=== PATIENT | male | born 1940 | race Caucasian/White ===

== ENCOUNTER → 2019-01-24 09:43 | Outpatient (CLI) | payer MEDICARE, SELFPAY ==
--- NOTE | 2019-01-24 | DI.US.S_ITS ---
PROCEDURE: US ABDOMEN LIMITED INDICATIONS: HERNIA TECHNIQUE: Real-time focused scanning was performed of the abdomen, with image documentation. COMPARISON: None. FINDINGS: In the area of right groin palpable abnormality, no definite groin hernia identified. No lymphadenopathy is seen. No focal fluid collection or discrete mass lesion. IMPRESSION: Negative examination as above. Dictated by: Sean Ramsay M.D. on 01/24/2019 at 13:57 Approved by: Sean Ramsay M.D. on 01/24/2019 at 13:58
== END ==
PROVIDERS: PCP Registered Nurse; Visit Provider Nurse Practitioner Family
DX: K46.9 Unspecified abdominal hernia without obstruction or gangrene (principal)
CPT/HCPCS: 76705

== ENCOUNTER → 2019-02-01 08:17 | Outpatient (CLI) | payer MEDICARE, SELFPAY ==
--- NOTE | 2019-02-01 | DI.US.S_ITS ---
PROCEDURE: US ABD AORTA ANEURYSM SCREEN INDICATIONS: AAA SCREEN TECHNIQUE: Real time scanning was performed of the aorta and iliac arteries, with image documentation. COMPARISON: [facility], ABD AORTA ANEURYSM SCREENING, 05/01/2009, 10:32. FINDINGS: Aorta: Proximal aortic diameter measures 2.1 cm. Mid-aorta measures 2.0 cm. Distal aortic diameter is 1.8 cm. Atherosclerotic plaques are again noted throughout the imaged abdominal aorta. Iliac arteries: Right common iliac artery measures 1.1 cm. Left common iliac artery measures 1.1 cm. IMPRESSION: Atherosclerosis of the abdominal aorta without sonographic evidence for abdominal aortic aneurysm. Dictated by: Rogerio Hassan M.D. on 02/01/2019 at 9:32 Approved by: Rogerio Hassan M.D. on 02/01/2019 at 9:35
== END ==
PROVIDERS: PCP Registered Nurse; Visit Provider Nurse Practitioner Family
DX: Z13.6 Encounter for screening for cardiovascular disorders (principal); I70.0 Atherosclerosis of aorta
CPT/HCPCS: 76706

== ENCOUNTER → 2019-02-15 12:11 | Outpatient (CLI) | payer MEDICARE, SELFPAY ==
--- NOTE | 2019-02-15 | DI.US.S_ITS ---
PROCEDURE: US ARTERIAL DUPLEX LE BI INDICATIONS: ABNORMAL RESULT OF OTHER CARDIOVASCULAR FUNCTION S TECHNIQUE: Color and pulse Doppler interrogation was performed of both lower extremity arterial systems, with image documentation. COMPARISON: None. FINDINGS: Right lower extremity: Common femoral artery: 133 cm/sec, with triphasic flow. Deep femoral artery: 80 cm/sec, with biphasic flow. Proximal superficial femoral artery: 76 cm/sec, with biphasic flow. Mid superficial femoral artery: 73 cm/sec, with biphasic flow. Distal superficial femoral artery: 63 cm/sec, with triphasic flow. Popliteal artery: 48 cm/sec, with biphasic flow. Posterior tibial artery: 34 cm/sec, with biphasic flow. Anterior tibial artery/dorsalis pedis: 79 cm/sec, with biphasic flow. Martines-scale imaging description: No hemodynamically significant stenosis of the right lower extremity artery. Left lower extremity: Common femoral artery: 100 cm/sec, with biphasic flow. Deep femoral artery: 626 cm/sec, with biphasic flow. Proximal superficial femoral artery: 89 cm/sec, with biphasic flow. Mid superficial femoral artery: 77 cm/sec, with biphasic flow. Distal superficial femoral artery: 54 cm/sec, with biphasic flow. Popliteal artery: 53 cm/sec, with biphasic flow. Posterior tibial artery: 58 cm/sec, with biphasic flow. Anterior tibial artery/dorsalis pedis: There is probable occlusion of the mid left anterior tibial artery with retrograde flow inferiorly. Martines-scale imaging description: Occlusion of the midportion of the left anterior tibial artery. No other hemodynamically significant stenosis. IMPRESSION: 1. 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 2. No other hemodynamically significant stenoses or occlusions of the lower extremity arteries. Dictated by: Ashley Tyler M.D. on 02/15/2019 at 17:29 Approved by: Ashley Tyler M.D. on 02/15/2019 at 17:33
== END ==
PROVIDERS: PCP Registered Nurse; Visit Provider Nurse Practitioner Family
DX: R94.39 Abnormal result of other cardiovascular function study (principal)
CPT/HCPCS: 93925

== ENCOUNTER 2019-04-25 06:35 | Day surgery (SDC) | payer MEDICARE, SELFPAY ==
[2019-04-25] VITALS (12 sets, daily range): BP systolic 116–132; BP diastolic 53–76; PULSE 58–91; RESP 9–18; TEMP 36.1–36.6; O2SAT 87–96; BMI 25.5
[2019-04-25] MEDS: LACTATED RINGERS 1,000 ML 42 ML IV ×2 (07:27→09:30)
--- NOTE | 2019-04-25 07:53 | PM.PREOP ---
Pre-operative Note Interval Note History & Physical reviewed/Exam performed by Physician: Yes Changes to H&P: No
[2019-04-25] MEDS: CEFAZOLIN 2 GM/100 ML FROZ.PIGGY IV (08:00)
--- NOTE | 2019-04-25 08:28 | SUR.OPER ---
Supine on padded OR bed, head on pillow, arms secured on padded arm boards at <90 degrees abduction, legs uncrossed, safety belt at thigh, tape over blanket over lower legs.
[2019-04-25] MEDS: BUPIVACAINE 0.5% (PF) VIAL 30 ML INJ (08:36)
--- NOTE | 2019-04-25 09:38 | SUR.PHASEI ---
Assumed care at 0930.
[2019-04-25] MEDS: fentaNYL 100 MCG/2 ML INJ IV (09:46)
--- NOTE | 2019-04-25 09:52 | SUR.PHASEI ---
Purple bruises to upper rt lip and lower left lip. No active bleeding noted.
--- NOTE | 2019-04-25 10:21 | SUR.PHASEI ---
O2 desat to upper 80s. Deep breaths encouraged. I.S. povided, verbal instructions given, patient able to reach 2200mls.
[2019-04-25] MEDS: OXYCODONE/ACETAMINOPHEN 5/325 TABLET 1 TAB PO (10:51)
--- NOTE | 2019-04-25 11:21 | PM.OP.1 ---
Operative Date/Time/Diagnoses Date of procedure: 04/25/19 Time of procedure: 09:10 Pre-op diagnosis: Right inguinal hernia reducible Post-op diagnosis: same Procedure & Clinicians Procedure: Shouldice repair right inguinal hernia Same procedure as scheduled: Yes Indications: Patient with a symptomatic hernia desired a no mesh repair Surgeon: Jose Norris Click Yes if Unassisted: Yes Anesthesia Type: General Operative Notes Findings: Indirect and direct hernias Closure Type: primary Specimen(s): none sent Prosthetic devices, grafts, tissues, transplants, or devices: None Estimated Blood Loss (mL): 10 Blood products transfused: none Procedure in detail: The patient was placed supine on the operating room table and underwent general LMA anesthesia. He was prepped and draped in the usual fashion. A transverse incision was made overlying the internal ring and carried down to the level of the external oblique. The external oblique was opened parallel with its fibers through the external ring. The cord structures were elevated. The cremaster was opened proximally and search made for an indirect sac. One was found. It was from surrounding structures and opened. It had no contents. It was suture ligated at the level the deep epigastric vessels after being transected just beyond this. The stump was allowed to retract.. The floor was examined and was found to be weakened. The floor was opened from the internal ring to the area of the pubic tubercle and the preperitoneal structures dissected off the overlying muscle and fascia. Using the cut edge of the lateral tissues and sewing to the underside of the medial edge of the transversalis a suture of 2 0 Prolene was run from the pubic tubercle superior and lateral to form a new internal ring and then run back from that point suturing the edge of the ilealo inguinal ligament and the P ileopubic tract to the cut medial edges transversalis. This was tied at the level of the pubic tubercle. I then created a another 2 layers suturing the inguinal ligament just above the last suture line to the internal oblique The repair appeared to be adequate. The external oblique was closed with a running 3 0 Vicryl. The subcu was closed with interrupted 3 0 Vicryl. 4 0 Vicryl subcuticular stitch and Steri-Strips. Dressing was applied, the patient was awakened, and the patient was taken to the recovery area in good condition. Complications: none Post-operative Condition: stable Disposition: PACU Plan for aftercare: Follow-up in the office
--- NOTE | 2019-04-25 11:54 | SUR.PHASEII ---
Late entry: assumed care of pt, pt placed on continuous 02 sat machine. 02 nasal cannula. 02 sats dropped to 88% but would rebound to as high as 97%. Dressing remained c/d/i with ice pack on and off. Steady when up. dressed when sats normalized off o2. Pt stated pain tolerable.
== END 2019-04-25 11:47 | disposition home or self-care (01) ==
PROVIDERS: PCP Family Medicine; Visit Provider Specialist
PROC: (CPT 49505; principal; 2019-04-25 07:45)
DX: K40.90 Unilateral inguinal hernia, without obstruction or gangrene, not specified as recurrent (principal); J44.9 Chronic obstructive pulmonary disease, unspecified
CPT/HCPCS: 49505; J0690; J2405; J2704; J3010

== ENCOUNTER → 2019-05-26 10:59 | Outpatient (CLI) | payer MEDICARE, SELFPAY ==
[2019-05-26 12:17] LABS: Hemoglobin A1C% w Est Avg Glu 6.1 % (4.0-6.0)
[2019-05-26 12:32] LABS: Alanine Aminotransferase 13 IU/L (<50); Albumin Globulin Ratio 1.3 (1.0-2.8); Alkaline Phosphatase 75 U/L (38-126); Aspartate Aminotransferase 24 IU/L (17-59); Bilirubin Total 0.7 mg/dL (0.2-1.3); Blood Urea Nitrogen 20 mg/dL (9-20); Calcium 9.4 mg/dL (8.4-10.2); Carbon Dioxide 25 mmol/L (22-32); Chloride 106 mmol/L (98-107); Estimated Glomerular Filt Rate > 60.0 mL/min (>60); Globulin 3.1 g/dL (1.7-4.1); Glucose 133 mg/dL (80-110); HEMOLYSIS 27 (0-50); Potassium 4.4 mmol/L (3.4-5.1); Sodium 141 mmol/L (137-145); Total Protein 7.1 g/dL (6.3-8.2)
== END ==
PROVIDERS: PCP Family Medicine; Referring Provider Family Medicine; Visit Provider Family Medicine
DX: Z13.1 Encounter for screening for diabetes mellitus (principal); Z13.220 Encounter for screening for lipoid disorders
CPT/HCPCS: 36415; 80053; 83036

== ENCOUNTER → 2019-09-09 14:29 | Outpatient (CLI) | payer MEDICARE, SELFPAY ==
[2019-09-10 09:20] LABS: COVID19 Sendout Not Detected (Not Detect)
== END ==
PROVIDERS: PCP Family Medicine; Visit Provider Physician Assistant
DX: Z01.812 Encounter for preprocedural laboratory examination (principal)
CPT/HCPCS: 87635

== ENCOUNTER → 2019-11-15 13:49 | Outpatient (CLI) | payer MEDICARE, SELFPAY ==
[2019-11-16 17:08] LABS: COVID19 Sendout Not Detected (Not Detect)
== END ==
PROVIDERS: PCP Family Medicine; Visit Provider Physician Assistant
DX: Z11.59 Encounter for screening for other viral diseases (principal)
CPT/HCPCS: 87635

== ENCOUNTER → 2019-12-30 10:43 | Outpatient (CLI) | payer MEDICARE, SELFPAY ==
--- NOTE | 2019-12-30 10:48 | DI.CT.S_ITS ---
PROCEDURE: CT CHEST WO CON INDICATIONS: Pleural plaque with presence of asbestos TECHNIQUE: Noncontrast 5 mm thick sections acquired from the pulmonary apices to the posterior costophrenic angles. 1 mm lung window, 5 mm thick coronal and sagittal and 7 mm axial MIP reformats were then acquired. For radiation dose reduction, the following was used: automated exposure control, adjustment of mA and/or kV according to patient size. COMPARISON: [facility], CT, THORAX WITHOUT CONTRAST, 07/23/2015, 11:54. FINDINGS: Image quality: Excellent. Scattered scarring/atelectasis. Unchanged prominent right pleural thickening without calcification. Numerous blebs and emphysematous changes, upper lobe predominant. There are diffuse subpleural reticular opacity with possible honeycombing appearance in the right middle lobe which appears more conspicuous since the prior study this is also noted in both lung bases, for example image 247/3. No pleural effusions or pneumothorax. Central and peripheral airways are patent and normal in caliber. Mediastinum: Heart size is normal. Coronary artery calcifications are present. No pericardial effusion. No mediastinal adenopathy by size criteria. Thoracic aorta and central pulmonary arteries are normal in size. Moderate hiatal hernia. Bones and chest wall: No vertebral body compression fracture. Spondylytic changes and facet arthropathy. No axillary or supraclavicular adenopathy by size criteria. Thyroid gland unremarkable . Non-specific hepatic calcification. A presumed hepatic cyst in the left lateral segment image 49/2 although technically indeterminate. This is unchanged IMPRESSION: Prominent right pleural thickening/plaque however noncalcified appearance. No calcified pleural plaques identified Progressive subpleural reticular and ill-defined ground-glass opacities, suspicious for usual interstitial pneumonia, given early honeycombing appearance. This appears progressed since 07/23/15. Additional chronic and incidental findings as above. Dictated by: Sean Ramsay M.D. on 12/30/2019 at 11:23 Approved by: Sean Ramsay M.D. on 12/30/2019 at 11:33
== END ==
PROVIDERS: PCP Family Medicine; Referring Provider Internal Medicine Pulmonary Disease; Visit Provider Internal Medicine Pulmonary Disease
DX: J92.0 Pleural plaque with presence of asbestos (principal); I25.10 Atherosclerotic heart disease of native coronary artery without angina pectoris; K44.9 Diaphragmatic hernia without obstruction or gangrene
CPT/HCPCS: 71250

== ENCOUNTER → 2020-01-02 13:48 | Outpatient (CLI) | payer MEDICARE, SELFPAY ==
[2020-01-03 07:45] LABS: COVID19 Sendout Not Detected (Not Detect)
== END ==
PROVIDERS: PCP Family Medicine; Visit Provider Physician Assistant
DX: Z11.59 Encounter for screening for other viral diseases (principal)
CPT/HCPCS: 87635

== ENCOUNTER → 2020-01-05 10:54 | Outpatient (CLI) | payer MEDICARE, SELFPAY ==
--- NOTE | 2020-01-11 09:06 | PM.PFT.1 ---
Pulmonary Function Test Referral & Results Date Patient Seen: 01/05/20 Requesting provider: Harman Topete Indication: COPD Results: The spirometry demonstrates an FVC of 3.37 L which is 92% of predicted. The FEV1 was measured at 2.18 L which is 84% of predicted. The FEV1/FVC ratio was 65 which is 90% of predicted. Following the administration of bronchodilator there was no appreciable change. Lung volumes show an SVC of 3.51 L which is 85% of predicted. The diffusing capacity was measured at 7.24 L which is 24% of predicted. No hemoglobin value was provided, so no correction for potential anemia could be made, if appropriate. The maximum voluntary ventilation was reduced Interpretation: This study demonstrates moderate or mild obstructive lung disease based on slight reduction FEV1 and FEV1/FVC ratio. No benefit following bronchodilator will administration was recognized. Shape a flow volume loop also suggest mild obstructive lung disease There is also very mild restrictive lung disease based on minimal reduction SVC There is a much more dramatic reduction in diffusing capacity suggesting significant disease at the capillary alveolar level.
== END ==
PROVIDERS: PCP Family Medicine; Referring Provider Family Medicine; Visit Provider Internal Medicine Pulmonary Disease
DX: J44.9 Chronic obstructive pulmonary disease, unspecified (principal); Z87.891 Personal history of nicotine dependence
CPT/HCPCS: 94060; 94726; 94729

== ENCOUNTER → 2020-02-13 13:22 | Outpatient (CLI) | payer MEDICARE, SELFPAY ==
[2020-02-13 14:51] LABS: COVID19 -Nasal RAPID Negative (Negative)
== END ==
PROVIDERS: PCP Family Medicine; Visit Provider Physician Assistant
DX: Z11.59 Encounter for screening for other viral diseases (principal)
CPT/HCPCS: 87635

== ENCOUNTER → 2020-03-19 13:16 | Outpatient (CLI) | payer MEDICARE, SELFPAY ==
[2020-03-19 18:09] LABS: COVID19 -Nasal RAPID Negative (Negative)
== END ==
PROVIDERS: PCP Family Medicine; Visit Provider Nurse Practitioner
DX: Z20.828 Contact with and (suspected) exposure to other viral communicable diseases (principal)
CPT/HCPCS: 87635; C9803

== ENCOUNTER → 2020-06-11 15:08 | Outpatient (CLI) | payer MEDICARE, SELFPAY ==
--- NOTE | 2020-06-11 15:10 | DI.RAD.S_ITS ---
PROCEDURE: XR CHEST 2V INDICATIONS: shortness of breath TECHNIQUE: 2 views of the chest were acquired. COMPARISON: [facility], CT, CT CHEST WO CON, 12/30/2019, 10:46. FINDINGS: Surgical changes and devices: None. Severe diffuse subsegmental atelectasis and/or scarring. No focal consolidation. No pleural effusions or pneumothorax. Mediastinum: Mediastinal contours are normal. Heart size is normal. Bones and chest wall: No suspicious bony abnormalities. Soft tissues appear unremarkable. IMPRESSION: Diffuse scarring and atelectasis. No definite interval change since 12/30/19 accounting for differences in imaging modality. In this setting would be difficult to entirely exclude early pneumonia or pulmonary edema. If there is persistent clinical diagnostic uncertainty, continued surveillance with short interval chest radiographs after treatment is recommended. Dictated by: Sean Ramsay M.D. on 06/11/2020 at 16:21 Approved by: Sean Ramsay M.D. on 06/11/2020 at 16:24
== END ==
PROVIDERS: PCP Family Medicine; Referring Provider Family Medicine; Visit Provider Family Medicine
DX: R06.02 Shortness of breath (principal); J44.9 Chronic obstructive pulmonary disease, unspecified
CPT/HCPCS: 71046

== ENCOUNTER 2020-06-24 16:26 | Emergency (ER) | payer MEDICARE, SELFPAY ==
[2020-06-24] VITALS (65 sets, daily range): BP systolic 104–146; BP diastolic 59–80; PULSE 75–106; RESP 10–36; TEMP 30–36.7; O2SAT 68–100
--- NOTE | 2020-06-24 16:57 | ED.SOB ---
HPI - SOB/Dyspnea <Elizabeth Molina, DO - Last Filed: 06/29/20 01:56> General Chief Complaint: Shortness of Breath/Dyspnea Stated Complaint: trouble breathing Time Seen by Provider: 06/24/20 16:54 Source: patient and family Mode of arrival: Family Vehicle Limitations: no limitations History of Present Illness HPI Narrative: This is an 79-year-old male who is brought in by his for shortness of breath. Patient has been having worsening shortness of breath the last 1-2 months but acutely worse in the last week or so and particularly today. Patient was blue when he arrived. Patient does have COPD he is normally on 4 L. He arrived via car with his . Patient is normally on Spiriva, allopurinol for gout and omeprazole. He does not take any other medications regularly. He did have a COVID vaccination in February patient has been having chills but no documented fever. He has had a chronic cough that is productive but with no new changes in coloration. He denies any chest pain or pain currently. He is currently being BiPAP with improvement of his color. Patient has not had any prior history of DVTs or blood clots. He does not have any known cardiac history. He denies any issues such as nausea or vomiting. No issues with bowel movements. No urinary issues. Patient has had some increased swelling in his lower extremities. Patient states he does not wish to be intubated if he requires a ventilator. He is okay with BiPAP. Patient's is at bedside and is somewhat reluctant about this decision from the patient. Patient and were both able to answer questions patient is alert and able to answer majority himself as well. Related Data Home Medications Medication Instructions Recorded Confirmed omeprazole 40 mg capsule,delayed 40 mg PO DAILY 03/15/19 06/11/20 release Stool Softener 50 mg PO DAILY 04/25/19 06/11/20 albuterol sulfate [ProAir HFA] 2 puff INHALATION Q4H PRN 04/25/19 06/11/20 cholecalciferol (vitamin D3) 2,000 unit PO DAILY 04/25/19 06/11/20 [Vitamin D3] Previous Rx's Medication Instructions Recorded oxycodone 5 mg PO Q4H PRN #14 tab 04/25/19 omeprazole 20 mg capsule,delayed 20 mg PO BID #180 cap 06/07/19 release allopurinol 100 mg tablet 100 mg PO DAILY #90 tab 03/13/20 doxycycline hyclate 100 mg capsule 100 mg PO BID #14 cap 06/11/20 prednisone 50 mg tablet 50 mg PO DAILY #5 tab 06/11/20 tiotropium bromide 2.5 2 puff INHALATION DAILY #4 g 06/14/20 mcg/actuation mist for inhalation Allergies Allergy/AdvReac Type Severity Reaction Status Date / Time No Known Drug Allergies Allergy Verified 06/11/20 14:48 Review of Systems <Elizabeth Molina DO - Last Filed: 06/29/20 01:56> Review of Systems ROS Unobtainable: All systems reviewed & are unremarkable except as noted in HPI and below Patient History <Elizabeth Molina DO - Last Filed: 06/29/20 01:56> Medical History (Updated 06/24/20 @ 19:49 by Elizabeth Molina DO) Durán's esophagus Constipation COPD (chronic obstructive pulmonary disease) Edema Emphysema of lung Former smoker GERD (gastroesophageal reflux disease) Gout Hard of hearing Hyperglycemia Impaired vision Raynaud phenomenon Sleep apnea with use of continuous positive airway pressure (CPAP) Family History Father Heart disease Social History marital status: household members: spouse Smoking Status: Former smoker alcohol intake: never substance use type: does not use Smoking Status: Former smoker Substance Use Type: does not use Exam <Elizabeth Molina DO - Last Filed: 06/29/20 01:56> Narrative Exam Narrative: GENERAL: Alert, elderly male. Patient was initially blew his color significantly improved on BiPAP. HEENT: Head normocephalic, atraumatic, EOMI, pupils reactive, face symmetric, moist mucous membranes NECK: Supple, full range of motion CARDIOVASCULAR: Regular rate and rhythm without murmurs, rubs or gallops. RESPIRATORY: Breath sounds equal bilaterally, no wheezes rales or rhonchi. Positive for tachypnea. Positive for accessory muscle use. ABDOMEN: Soft, nontender. Normoactive bowel sounds all 4 quadrants. No guarding or rebound, rigidity, no mass : No CVA tenderness EXTREMITIES: Normal range of motion, no clubbing, positive for bilateral pedal and ankle edema. Less appreciated in the upper legs. Patient's nail beds continue to be cyanotic. NEUROLOGICAL: Cranial nerves II through XII grossly intact. Moving all extremities SKIN: Warm, dry, no petechiae, no rashes or lesions appreciated. Initial Vital Signs Initial Vital Signs: Vital Signs Blood Pressure 146/68 H 06/24/20 16:30 <William Olsen DO - Last Filed: 06/24/20 23:58> Initial Vital Signs Initial Vital Signs: Vital Signs Blood Pressure 146/68 H 06/24/20 16:30 Scores <Elizabeth Molina DO - Last Filed: 06/29/20 01:56> GCS [place] coma scale eye opening: Spontaneous [place] coma scale verbal response: Orientated Yossi coma scale motor response: Obey commands Yossi coma scale total score: 15 Course <Elizabeth Molina DO - Last Filed: 06/29/20 01:56> Orders Ordered: Discontinued Medications Albuterol/Ipratropium (Albuterol/Ipratropium 3 Ml Ampul) 3 ml INH NOW ONE Stop: 06/24/20 16:56 Last Admin: 06/24/20 18:32 Dose: Not Given Documented by: ROSSY Albuterol/Ipratropium (Albuterol/Ipratropium 3 Ml Ampul) 3 ml INH NOW ONE Stop: 06/24/20 18:32 Last Admin: 06/24/20 18:55 Dose: 3 ml Documented by: BRITTANY Furosemide (Furosemide 40 Mg/4 Ml Vial) 40 mg IV NOW ONE Stop: 06/24/20 20:14 Last Admin: 06/24/20 20:25 Dose: 40 mg Documented by: YUNIER Heparin Sodium (Porcine) (Heparin 5,000 Unit/Ml Vial) 4,000 unit IV NOW ONE Stop: 06/24/20 19:43 Last Admin: 06/24/20 20:03 Dose: 4,000 unit Documented by: ROSSY Heparin Sodium/Dextrose (Heparin Drip) 25,000 unit in 500 mls @ 20 mls/hr IV CONT DUYEN; Protocol Last Titration: 06/24/20 23:42 Dose: 1,000 units/hr, 20 mls/hr Documented by: Admin: 06/24/20 20:05 Dose: 1,000 units/hr, 20 mls/hr Documented by: ROSSY Methylprednisolone (Methylprednisolone 125 Mg/2 Ml Vial) 125 mg IV NOW ONE Stop: 06/24/20 16:56 Last Admin: 06/24/20 18:32 Dose: Not Given Documented by: ROSSY Methylprednisolone (Methylprednisolone 125 Mg/2 Ml Vial) 125 mg IV NOW ONE Stop: 06/24/20 18:33 Last Admin: 06/24/20 18:56 Dose: 125 mg Documented by: ROSSY Reevaluation(s) Reevaluation #1: Patient is significantly improved. RT attempted weaning him off BiPAP to his usual 4 L. Patient was able to tolerate for about 10 or 15 minutes and then required BiPAP again. Time: 17:45 Consultations Time: 19:48 Vital Signs Vital signs: Vital Signs - 8 hr 06/24/20 16:30 06/24/20 16:35 06/24/20 17:11 Temperature 98.1 F Pulse Rate 106 H 100 H Respiratory Rate 36 H 29 H Blood Pressure 146/68 H 146/68 H Pulse Oximetry 68 L 99 06/24/20 18:51 06/24/20 18:55 06/24/20 19:00 Temperature Pulse Rate 84 80 79 Respiratory Rate 21 24 24 Blood Pressure 146/68 H Pulse Oximetry 100 100 99 06/24/20 19:05 06/24/20 19:10 06/24/20 19:15 Temperature Pulse Rate 79 80 79 Respiratory Rate 22 28 H 26 H Blood Pressure Pulse Oximetry 97 98 99 06/24/20 19:20 06/24/20 19:25 06/24/20 19:30 Temperature Pulse Rate 79 79 79 Respiratory Rate 16 20 20 Blood Pressure Pulse Oximetry 99 98 98 06/24/20 19:35 06/24/20 19:40 06/24/20 19:45 Temperature Pulse Rate 77 78 78 Respiratory Rate 21 21 21 Blood Pressure Pulse Oximetry 97 97 96 06/24/20 19:50 06/24/20 19:55 06/24/20 20:00 Temperature Pulse Rate 78 80 79 Respiratory Rate 19 28 H 22 Blood Pressure Pulse Oximetry 97 86 L 97 06/24/20 20:05 06/24/20 20:10 06/24/20 20:15 Temperature Pulse Rate 79 80 81 Respiratory Rate 21 25 H 24 Blood Pressure 119/59 L Pulse Oximetry 99 96 92 06/24/20 20:20 06/24/20 20:25 06/24/20 20:30 Temperature Pulse Rate 78 81 79 Respiratory Rate 24 22 28 H Blood Pressure 111/66 Pulse Oximetry 97 92 99 06/24/20 20:35 06/24/20 20:40 06/24/20 20:45 Temperature Pulse Rate 82 88 90 Respiratory Rate 24 29 H 29 H Blood Pressure Pulse Oximetry 95 96 97 06/24/20 20:50 06/24/20 20:55 06/24/20 21:00 Temperature Pulse Rate 91 H 92 H 87 Respiratory Rate 28 H 22 27 H Blood Pressure Pulse Oximetry 98 98 96 06/24/20 21:01 06/24/20 21:05 06/24/20 21:10 Temperature Pulse Rate 95 H 82 83 Respiratory Rate 31 H 26 H 27 H Blood Pressure 132/74 Pulse Oximetry 97 97 96 06/24/20 21:15 06/24/20 21:20 06/24/20 21:25 Temperature Pulse Rate 84 90 84 Respiratory Rate 33 H 35 H 28 H Blood Pressure Pulse Oximetry 84 L 93 97 06/24/20 21:30 06/24/20 21:32 06/24/20 21:35 Temperature Pulse Rate 84 93 H Respiratory Rate 31 H 33 H Blood Pressure 130/80 132/74 Pulse Oximetry 97 93 06/24/20 21:40 06/24/20 21:45 06/24/20 21:50 Temperature Pulse Rate 81 81 79 Respiratory Rate 22 21 23 Blood Pressure Pulse Oximetry 97 97 97 06/24/20 21:55 06/24/20 22:00 06/24/20 22:05 Temperature Pulse Rate 79 78 75 Respiratory Rate 19 23 18 Blood Pressure 104/62 Pulse Oximetry 97 96 95 06/24/20 22:10 06/24/20 22:15 06/24/20 22:20 Temperature Pulse Rate 75 75 75 Respiratory Rate 19 18 21 Blood Pressure Pulse Oximetry 96 96 96 06/24/20 22:25 06/24/20 22:30 06/24/20 22:35 Temperature Pulse Rate 77 75 76 Respiratory Rate 23 20 19 Blood Pressure 110/63 Pulse Oximetry 96 95 95 06/24/20 22:40 06/24/20 22:45 03/28/21 22:50 Temperature Pulse Rate 90 80 81 Respiratory Rate 33 H 26 H 22 Blood Pressure Pulse Oximetry 97 97 06/24/20 22:55 06/24/20 23:00 06/24/20 23:05 Temperature Pulse Rate 77 78 79 Respiratory Rate 21 25 H 25 H Blood Pressure 120/66 Pulse Oximetry 96 97 97 06/24/20 23:10 06/24/20 23:15 06/24/20 23:20 Temperature Pulse Rate 79 79 83 Respiratory Rate 21 26 H 26 H Blood Pressure Pulse Oximetry 97 97 97 06/24/20 23:25 06/24/20 23:30 06/24/20 23:35 Temperature Pulse Rate 79 76 76 Respiratory Rate 25 H 22 21 Blood Pressure 115/66 Pulse Oximetry 95 96 97 06/24/20 23:40 Temperature Pulse Rate 79 Respiratory Rate 28 H Blood Pressure Pulse Oximetry 97 <William Olsen DO - Last Filed: 06/24/20 23:58> Orders Ordered: Discontinued Medications Albuterol/Ipratropium (Albuterol/Ipratropium 3 Ml Ampul) 3 ml INH NOW ONE Stop: 06/24/20 16:56 Last Admin: 06/24/20 18:32 Dose: Not Given Documented by: ROSSY Albuterol/Ipratropium (Albuterol/Ipratropium 3 Ml Ampul) 3 ml INH NOW ONE Stop: 06/24/20 18:32 Last Admin: 06/24/20 18:55 Dose: 3 ml Documented by: BRITTANY Furosemide (Furosemide 40 Mg/4 Ml Vial) 40 mg IV NOW ONE Stop: 06/24/20 20:14 Last Admin: 06/24/20 20:25 Dose: 40 mg Documented by: YUNIER Heparin Sodium (Porcine) (Heparin 5,000 Unit/Ml Vial) 4,000 unit IV NOW ONE Stop: 06/24/20 19:43 Last Admin: 06/24/20 20:03 Dose: 4,000 unit Documented by: ROSSY Heparin Sodium/Dextrose (Heparin Drip) 25,000 unit in 500 mls @ 20 mls/hr IV CONT DUYEN; Protocol Last Titration: 06/24/20 23:42 Dose: 1,000 units/hr, 20 mls/hr Documented by: Admin: 06/24/20 20:05 Dose: 1,000 units/hr, 20 mls/hr Documented by: ROSSY Methylprednisolone (Methylprednisolone 125 Mg/2 Ml Vial) 125 mg IV NOW ONE Stop: 06/24/20 16:56 Last Admin: 06/24/20 18:32 Dose: Not Given Documented by: ROSSY Methylprednisolone (Methylprednisolone 125 Mg/2 Ml Vial) 125 mg IV NOW ONE Stop: 06/24/20 18:33 Last Admin: 06/24/20 18:56 Dose: 125 mg Documented by: ROSSY Consultations Consultation #1: call to hospitalist here at . Due to new need for BiPap with newly discovered PEs and significantly increased likelihood of possible decompensation the patient is most appropriate to be transferred to a facility with in-house Cardiology, and the ability to intervene if needed Consultation #2: discussed with cardio at [facility], we agree that at present time he would not demonstrate indications for intervention for his PE Consultation #3: Hospitalist happy to accept at [facility] Vital Signs Vital signs: Vital Signs - 8 hr 06/24/20 16:30 06/24/20 16:35 06/24/20 17:11 Temperature 98.1 F Pulse Rate 106 H 100 H Respiratory Rate 36 H 29 H Blood Pressure 146/68 H 146/68 H Pulse Oximetry 68 L 99 06/24/20 18:51 06/24/20 18:55 06/24/20 19:00 Temperature Pulse Rate 84 80 79 Respiratory Rate 21 24 24 Blood Pressure 146/68 H Pulse Oximetry 100 100 99 06/24/20 19:05 06/24/20 19:10 06/24/20 19:15 Temperature Pulse Rate 79 80 79 Respiratory Rate 22 28 H 26 H Blood Pressure Pulse Oximetry 97 98 99 06/24/20 19:20 06/24/20 19:25 06/24/20 19:30 Temperature Pulse Rate 79 79 79 Respiratory Rate 16 20 20 Blood Pressure Pulse Oximetry 99 98 98 06/24/20 19:35 06/24/20 19:40 06/24/20 19:45 Temperature Pulse Rate 77 78 78 Respiratory Rate 21 21 21 Blood Pressure Pulse Oximetry 97 97 96 06/24/20 19:50 06/24/20 19:55 06/24/20 20:00 Temperature Pulse Rate 78 80 79 Respiratory Rate 19 28 H 22 Blood Pressure Pulse Oximetry 97 86 L 97 06/24/20 20:05 06/24/20 20:10 06/24/20 20:15 Temperature Pulse Rate 79 80 81 Respiratory Rate 21 25 H 24 Blood Pressure 119/59 L Pulse Oximetry 99 96 92 06/24/20 20:20 06/24/20 20:25 06/24/20 20:30 Temperature Pulse Rate 78 81 79 Respiratory Rate 24 22 28 H Blood Pressure 111/66 Pulse Oximetry 97 92 99 06/24/20 20:35 06/24/20 20:40 06/24/20 20:45 Temperature Pulse Rate 82 88 90 Respiratory Rate 24 29 H 29 H Blood Pressure Pulse Oximetry 95 96 97 06/24/20 20:50 06/24/20 20:55 06/24/20 21:00 Temperature Pulse Rate 91 H 92 H 87 Respiratory Rate 28 H 22 27 H Blood Pressure Pulse Oximetry 98 98 96 06/24/20 21:01 06/24/20 21:05 06/24/20 21:10 Temperature Pulse Rate 95 H 82 83 Respiratory Rate 31 H 26 H 27 H Blood Pressure 132/74 Pulse Oximetry 97 97 96 06/24/20 21:15 06/24/20 21:20 06/24/20 21:25 Temperature Pulse Rate 84 90 84 Respiratory Rate 33 H 35 H 28 H Blood Pressure Pulse Oximetry 84 L 93 97 06/24/20 21:30 06/24/20 21:32 06/24/20 21:35 Temperature Pulse Rate 84 93 H Respiratory Rate 31 H 33 H Blood Pressure 130/80 132/74 Pulse Oximetry 97 93 06/24/20 21:40 06/24/20 21:45 06/24/20 21:50 Temperature Pulse Rate 81 81 79 Respiratory Rate 22 21 23 Blood Pressure Pulse Oximetry 97 97 97 06/24/20 21:55 06/24/20 22:00 06/24/20 22:05 Temperature Pulse Rate 79 78 75 Respiratory Rate 19 23 18 Blood Pressure 104/62 Pulse Oximetry 97 96 95 06/24/20 22:10 06/24/20 22:15 06/24/20 22:20 Temperature Pulse Rate 75 75 75 Respiratory Rate 19 18 21 Blood Pressure Pulse Oximetry 96 96 96 06/24/20 22:25 06/24/20 22:30 06/24/20 22:35 Temperature Pulse Rate 77 75 76 Respiratory Rate 23 20 19 Blood Pressure 110/63 Pulse Oximetry 96 95 95 06/24/20 22:40 06/24/20 22:45 06/24/20 22:50 Temperature Pulse Rate 90 80 81 Respiratory Rate 33 H 26 H 22 Blood Pressure Pulse Oximetry 97 97 06/24/20 22:55 06/24/20 23:00 06/24/20 23:05 Temperature Pulse Rate 77 78 79 Respiratory Rate 21 25 H 25 H Blood Pressure 120/66 Pulse Oximetry 96 97 97 06/24/20 23:10 06/24/20 23:15 06/24/20 23:20 Temperature Pulse Rate 79 79 83 Respiratory Rate 21 26 H 26 H Blood Pressure Pulse Oximetry 97 97 97 06/24/20 23:25 06/24/20 23:30 06/24/20 23:35 Temperature Pulse Rate 79 76 76 Respiratory Rate 25 H 22 21 Blood Pressure 115/66 Pulse Oximetry 95 96 97 06/24/20 23:40 Temperature Pulse Rate 79 Respiratory Rate 28 H Blood Pressure Pulse Oximetry 97 MDM - SOB/Dyspnea <Elizabeth Molina DO - Last Filed: 06/29/20 01:56> Lab Data Attestation: I reviewed the patient's lab results. Result diagrams: 06/24/20 17:15 06/24/20 17:15 Labs: Lab Results 06/24/20 06/24/20 06/24/20 Range/Units 16:38 16:52 17:15 WBC (4.5-11.0) X10^3/uL RBC (4.5-5.9) X10^6/uL Hgb (13.5-17.5) g/dL Hct (41-53) % MCV (80-100) fL MCH (26-34) PG MCHC (30-36) % RDW (11.6-14.8) % Plt Count (150-400) X10^3/uL Neut % (Auto) (50-75) % Lymph % (Auto) (25-40) % [place] % (Auto) (3-14) % Eos % (Auto) (2-4) % Baso % (Auto) (0-2) % Neut # (Auto) (7493-5793) /uL Lymph # (Auto) (4988-0093) /uL [place] # (Auto) (0-900) /uL Eos # (Auto) (0-450) /uL Baso # (Auto) (0-100) /uL PT (10.1-12.7) SECONDS INR (0.9-1.3) APTT (26.4-36.2) SECONDS D-Dimer (<230) ng/mL ABG pH 7.36 (7.35-7.45) ABG pCO2 32.5 L (35-45) mmHg ABG pO2 70 L (80-100) mmHg ABG HCO3 18 L (22-26) mmol/L ABG Total CO2 19 L (21-31) mmol/L ABG O2 Saturation 93 L (95-100) % ABG Base Excess -7.0 L (-2-2) mmol/L FiO2 100 Sodium 141 (137-145) mmol/L Potassium 4.0 (3.4-5.1) mmol/L Chloride 106 (98-107) mmol/L Carbon Dioxide 21 L (22-32) mmol/L BUN 22 H (9-20) mg/dL Creatinine 1.13 (0.66-1.25) mg/dL Estimated GFR > 60.0 (>60) mL/min BUN/Creatinine Ratio 19.5 (6-22) Glucose 147 H (80-110) mg/dL Lactate (0.7-2.1) mmol/L Calcium 9.5 (8.4-10.2) mg/dL Magnesium (1.6-2.3) mg/dL Total Bilirubin 0.8 (0.2-1.3) mg/dL AST 33 (17-59) IU/L ALT 30 (<50) IU/L Alkaline Phosphatase 103 (38-126) U/L Total Creatine Kinase (55-170) U/L CK-MB (CK-2) CK-MB (CK-2) Rel Index Troponin I (0.01-0.034) ng/mL NT-Pro-B Natriuret Pep (<450) pg/mL Total Protein 7.6 (6.3-8.2) g/dL Albumin 4.1 (3.5-5.0) g/dL Globulin 3.5 (1.7-4.1) g/dL Albumin/Globulin Ratio 1.2 (1.0-2.8) Procalcitonin (<0.5) ng/mL SARS-CoV-2 (PCR) Negative (Negative) 06/24/20 06/24/20 06/24/20 Range/Units 17:15 17:15 17:15 WBC 10.3 (4.5-11.0) X10^3/uL RBC 4.83 (4.5-5.9) X10^6/uL Hgb 15.9 (13.5-17.5) g/dL Hct 48.8 (41-53) % MCV 101.0 H (80-100) fL MCH 33.0 (26-34) PG MCHC 32.7 (30-36) % RDW 14.6 (11.6-14.8) % Plt Count 212 (150-400) X10^3/uL Neut % (Auto) 78.2 H (50-75) % Lymph % (Auto) 13.7 L (25-40) % [place] % (Auto) 5.0 (3-14) % Eos % (Auto) 2.3 (2-4) % Baso % (Auto) 0.8 (0-2) % Neut # (Auto) 8000 H (9619-5773) /uL Lymph # (Auto) 1400 (6527-6983) /uL [place] # (Auto) 500 (0-900) /uL Eos # (Auto) 200 (0-450) /uL Baso # (Auto) 100 (0-100) /uL PT 14.5 H (10.1-12.7) SECONDS INR 1.3 (0.9-1.3) APTT 34 (26.4-36.2) SECONDS D-Dimer 1347 H (<230) ng/mL ABG pH (7.35-7.45) ABG pCO2 (35-45) mmHg ABG pO2 (80-100) mmHg ABG HCO3 (22-26) mmol/L ABG Total CO2 (21-31) mmol/L ABG O2 Saturation (95-100) % ABG Base Excess (-2-2) mmol/L FiO2 Sodium (137-145) mmol/L Potassium (3.4-5.1) mmol/L Chloride (98-107) mmol/L Carbon Dioxide (22-32) mmol/L BUN (9-20) mg/dL Creatinine (0.66-1.25) mg/dL Estimated GFR (>60) mL/min BUN/Creatinine Ratio (6-22) Glucose (80-110) mg/dL Lactate 4.4 H* (0.7-2.1) mmol/L Calcium (8.4-10.2) mg/dL Magnesium (1.6-2.3) mg/dL Total Bilirubin (0.2-1.3) mg/dL AST (17-59) IU/L ALT (<50) IU/L Alkaline Phosphatase (38-126) U/L Total Creatine Kinase (55-170) U/L CK-MB (CK-2) CK-MB (CK-2) Rel Index Troponin I (0.01-0.034) ng/mL NT-Pro-B Natriuret Pep (<450) pg/mL Total Protein (6.3-8.2) g/dL Albumin (3.5-5.0) g/dL Globulin (1.7-4.1) g/dL Albumin/Globulin Ratio (1.0-2.8) Procalcitonin (<0.5) ng/mL SARS-CoV-2 (PCR) (Negative) 06/24/20 06/24/20 06/24/20 Range/Units 17:15 17:15 17:15 WBC (4.5-11.0) X10^3/uL RBC (4.5-5.9) X10^6/uL Hgb (13.5-17.5) g/dL Hct (41-53) % MCV (80-100) fL MCH (26-34) PG MCHC (30-36) % RDW (11.6-14.8) % Plt Count (150-400) X10^3/uL Neut % (Auto) (50-75) % Lymph % (Auto) (25-40) % [place] % (Auto) (3-14) % Eos % (Auto) (2-4) % Baso % (Auto) (0-2) % Neut # (Auto) (6387-1539) /uL Lymph # (Auto) (2712-8724) /uL [place] # (Auto) (0-900) /uL Eos # (Auto) (0-450) /uL Baso # (Auto) (0-100) /uL PT (10.1-12.7) SECONDS INR (0.9-1.3) APTT (26.4-36.2) SECONDS D-Dimer (<230) ng/mL ABG pH (7.35-7.45) ABG pCO2 (35-45) mmHg ABG pO2 (80-100) mmHg ABG HCO3 (22-26) mmol/L ABG Total CO2 (21-31) mmol/L ABG O2 Saturation (95-100) % ABG Base Excess (-2-2) mmol/L FiO2 Sodium Cancelled (137-145) mmol/L Potassium Cancelled (3.4-5.1) mmol/L Chloride Cancelled (98-107) mmol/L Carbon Dioxide Cancelled (22-32) mmol/L BUN Cancelled (9-20) mg/dL Creatinine Cancelled (0.66-1.25) mg/dL Estimated GFR Cancelled (>60) mL/min BUN/Creatinine Ratio Cancelled (6-22) Glucose Cancelled (80-110) mg/dL Lactate Cancelled (0.7-2.1) mmol/L Calcium Cancelled (8.4-10.2) mg/dL Magnesium 2.1 (1.6-2.3) mg/dL Total Bilirubin Cancelled (0.2-1.3) mg/dL AST Cancelled (17-59) IU/L ALT Cancelled (<50) IU/L Alkaline Phosphatase Cancelled (38-126) U/L Total Creatine Kinase 41 L (55-170) U/L CK-MB (CK-2) TNP CK-MB (CK-2) Rel Index TNP Troponin I 0.029 (0.01-0.034) ng/mL NT-Pro-B Natriuret Pep 3630 H (<450) pg/mL Total Protein Cancelled (6.3-8.2) g/dL Albumin Cancelled (3.5-5.0) g/dL Globulin Cancelled (1.7-4.1) g/dL Albumin/Globulin Ratio Cancelled (1.0-2.8) Procalcitonin 0.05 (<0.5) ng/mL SARS-CoV-2 (PCR) (Negative) 06/24/20 06/24/20 Range/Units 19:35 19:55 WBC (4.5-11.0) X10^3/uL RBC (4.5-5.9) X10^6/uL Hgb (13.5-17.5) g/dL Hct (41-53) % MCV (80-100) fL MCH (26-34) PG MCHC (30-36) % RDW (11.6-14.8) % Plt Count (150-400) X10^3/uL Neut % (Auto) (50-75) % Lymph % (Auto) (25-40) % [place] % (Auto) (3-14) % Eos % (Auto) (2-4) % Baso % (Auto) (0-2) % Neut # (Auto) (6129-1357) /uL Lymph # (Auto) (6291-7812) /uL [place] # (Auto) (0-900) /uL Eos # (Auto) (0-450) /uL Baso # (Auto) (0-100) /uL PT (10.1-12.7) SECONDS INR (0.9-1.3) APTT (26.4-36.2) SECONDS D-Dimer (<230) ng/mL ABG pH (7.35-7.45) ABG pCO2 (35-45) mmHg ABG pO2 (80-100) mmHg ABG HCO3 (22-26) mmol/L ABG Total CO2 (21-31) mmol/L ABG O2 Saturation (95-100) % ABG Base Excess (-2-2) mmol/L FiO2 Sodium (137-145) mmol/L Potassium (3.4-5.1) mmol/L Chloride (98-107) mmol/L Carbon Dioxide (22-32) mmol/L BUN (9-20) mg/dL Creatinine (0.66-1.25) mg/dL Estimated GFR (>60) mL/min BUN/Creatinine Ratio (6-22) Glucose (80-110) mg/dL Lactate 1.2 (0.7-2.1) mmol/L Calcium (8.4-10.2) mg/dL Magnesium (1.6-2.3) mg/dL Total Bilirubin (0.2-1.3) mg/dL AST (17-59) IU/L ALT (<50) IU/L Alkaline Phosphatase (38-126) U/L Total Creatine Kinase (55-170) U/L CK-MB (CK-2) CK-MB (CK-2) Rel Index Troponin I (0.01-0.034) ng/mL NT-Pro-B Natriuret Pep (<450) pg/mL Total Protein (6.3-8.2) g/dL Albumin (3.5-5.0) g/dL Globulin (1.7-4.1) g/dL Albumin/Globulin Ratio (1.0-2.8) Procalcitonin (<0.5) ng/mL SARS-CoV-2 (PCR) Negative (Negative) Imaging Data Chest x-ray: Radiologist's Impression: [address] [id number] ReportSigned Patient: Anand Rea TMR#: [id number]: [id number]:[id number]/Sex: 79 / MDate of Service: 06/24/20Loc: EDAccession Number: [id number] Procedure: XR chest 1V Ordering Provider: Elizabeth Molina D.O. PROCEDURE: XR CHEST 1V INDICATIONS: Short of breath/hypoxia, HXCOPD TECHNIQUE: One view of the chest was acquired. COMPARISON: [facility], CT, CT CHEST WO CON, 12/30/2019, 10:46. [facility], CR, XR CHEST 2V, 06/11/2020, 15:09. FINDINGS: Surgical changes and devices: None. Lungs and pleura: Generalized interstitial prominence can be seen. No pneumothorax or large pleural effusion can be seen. Mediastinum: Mediastinal contours appear normal. Heart size is moderately enlarged. Atherosclerotic calcification of the aortic arch is noted. Bones and chest wall: No suspicious bony lesions. Age-appropriate bony degenerative changes are seen. Overlying soft tissues appear unremarkable. IMPRESSION: Cardiomegaly and interstitial prominence. Please correlate with patient presentation, physical examination findings, and laboratory values for congestive heart failure. Dictated by: Dev Medley M.D. on 06/24/2020 at 16:43 Approved by: Dev Medley M.D. on 06/24/2020 at 16:45 CT scan - chest: Radiologist's Impression: Anand Rea 79 M 1940 [facility] [place] [id number] Scan ReportAddendum Patient: Anand Rea TMR#: [id number]: [id number]:[id number]/Sex: 79 / MDate of Service: 06/24/20Loc: EDAccession Number: [id number] Procedure: CT angio chest PE protocol Ordering Provider: Elizabeth Molina D.O. ADDENDUMThis report includes an Addendum and supersedes previous reports for this exam. PROCEDURE: CT ANGIO CHEST PE PROTOCOL INDICATIONS: sob, hx copd TECHNIQUE: After the administration of intravenous contrast, 2 mm thick sections acquired from the pulmonary apices to the posterior costophrenic angles. 3-dimensional maximum intensity projection (MIP) coronal and sagittal reformats were then acquired through the thorax. For radiation dose reduction, the following was used: automated exposure control, adjustment of mA and/or kV according to patient size. COMPARISON: [facility], CT, CT CHEST WO CON, 12/30/2019, 10:46. [facility], CT, THORAX WITHOUT CONTRAST, 07/23/2015, 11:54. FINDINGS: Image quality: Excellent. Pulmonary arteries: There are multiple bilateral pulmonary emboli, involving the right lobar and segmental pulmonary arteries as well as the left lower lobe segmental pulmonary arteries. Poor opacification of the upper lobe pulmonary arteries however no definite intraluminal filling defects. No definite leftward bowing of the interventricular septum. Enlargement of the central pulmonary arteries suggestive of pulmonary arterial hypertension. Severe emphysema is seen bilaterally. Scattered subsegmental atelectasis and/or scarring. No focal consolidation. There is nodular appearance measuring 1.5 x 1.5 cm involving the superior segment of the right lower lobe on image 151/5 which may be slightly progressed since the prior study although unclear if this is nodular scarring versus neoplastic. Consider further evaluation with PET-CT No pleural effusions or pneumothorax. Central and peripheral airways are patent. Mediastinum: Heart size is normal, without pericardial effusion. No mediastinal or hilar adenopathy. Thoracic aorta is normal in caliber and enhancement. Large hiatal hernia. Bones and chest wall: No suspicious bony lesions. Ribs and thoracic spine appear intact throughout. Thyroid is grossly unremarkable No axillary or supraclavicular adenopathy. Abdomen: Partially visualized presumed left renal cysts although indeterminate . Subcentimeter hepatic foci are statistically cysts or hemangiomas, although technically too small to characterize accurately and therefore nonspecific. IMPRESSION: Bilateral lower lobe pulmonary emboli as above. Severe emphysema and interstitial changes. 1.5 cm nodular focus involving the right lung superior segment warrants continued follow-up and further evaluation. Consider PET-CT to exclude malignant/metastatic possibilities (versus nodular scarring) Large hiatal hernia Additional chronic and incidental findings as above. Critical findings were personally telephoned and discussed with Dr. Molina in the emergency department at 1940 hours on 06/24/20. Dictated by: Sean Ramsay M.D. on 06/24/2020 at 19:32 Approved by: Sean Ramsay M.D. on 06/24/2020 at 19:43 ADDENDUM: There are new confluent or multiple enlarged right paratracheal lymph nodes measuring 1.7 x 3.4 cm overall image 25/4. Additional right paratracheal lymph node measuring 1.2 cm on image 41/4. Findings personally telephoned and discussed with the patient's primary care provider, Dr. Cobb, on 06/27/20. Dictated by: Sean Ramsay M.D. on 06/27/2020 at 14:48 Approved by: Sean Ramsay M.D. on 06/27/2020 at 17:32 Addendum Dictated By:Sean Ramsay MDAddendum Signed By:Addendum Cosigned By:DD/ TD/TT: 06/27/20 PROCEDURE: CT ANGIO CHEST PE PROTOCOL INDICATIONS: sob, hx copd TECHNIQUE: After the administration of intravenous contrast, 2 mm thick sections acquired from the pulmonary apices to the posterior costophrenic angles. 3-dimensional maximum intensity projection (MIP) coronal and sagittal reformats were then acquired through the thorax. For radiation dose reduction, the following was used: automated exposure control, adjustment of mA and/or kV according to patient size. COMPARISON: [facility], CT, CT CHEST WO CON, 12/30/2019, 10:46. [facility], CT, THORAX WITHOUT CONTRAST, 07/23/2015, 11:54. FINDINGS: Image quality: Excellent. Pulmonary arteries: There are multiple bilateral pulmonary emboli, involving the right lobar and segmental pulmonary arteries as well as the left lower lobe segmental pulmonary arteries. Poor opacification of the upper lobe pulmonary arteries however no definite intraluminal filling defects. No definite leftward bowing of the interventricular septum. Enlargement of the central pulmonary arteries suggestive of pulmonary arterial hypertension. Severe emphysema is seen bilaterally. Scattered subsegmental atelectasis and/or scarring. No focal consolidation. There is nodular appearance measuring 1.5 x 1.5 cm involving the superior segment of the right lower lobe on image 151/5 which may be slightly progressed since the prior study although unclear if this is nodular scarring versus neoplastic. Consider further evaluation with PET-CT No pleural effusions or pneumothorax. Central and peripheral airways are patent. Mediastinum: Heart size is normal, without pericardial effusion. No mediastinal or hilar adenopathy. Thoracic aorta is normal in caliber and enhancement. Large hiatal hernia. Bones and chest wall: No suspicious bony lesions. Ribs and thoracic spine appear intact throughout. Thyroid is grossly unremarkable No axillary or supraclavicular adenopathy. Abdomen: Partially visualized presumed left renal cysts although indeterminate . Subcentimeter hepatic foci are statistically cysts or hemangiomas, although technically too small to characterize accurately and therefore nonspecific. IMPRESSION: Bilateral lower lobe pulmonary emboli as above. Severe emphysema and interstitial changes. 1.5 cm nodular focus involving the right lung superior segment warrants continued follow-up and further evaluation. Consider PET-CT to exclude malignant/metastatic possibilities (versus nodular scarring) Large hiatal hernia Additional chronic and incidental findings as above. Critical findings were personally telephoned and discussed with Dr. Molina in the emergency department at 1940 hours on 06/24/20. Dictated by: Sean Ramsay M.D. on 06/24/2020 at 19:32 Approved by: Sean Ramsay M.D. on 06/24/2020 at 19:43 ECG Data Attestation: I personally reviewed and interpreted this ECG as follows: Interpretation: Normal sinus rhythm rate of 93, IN 128 QRS 88 QTC 4 for 7. Patient does not have priors for comparison. It patient has some inversion in 3 and AVF. No clear elevation but possible ischemic changes. MDM Narrative Medical decision making narrative: This is an 79-year-old male who comes to the emergency department with acute on chronic respiratory failure. Patient has been slowly worsening over the last several weeks. He became acutely more dyspneic in the last several days. When he arrived he was hypoxic and cyanotic. Patient was placed on BiPAP and had significant improvement. Patient does have a history of COPD on 4 L, D-dimer was obtained in is significantly elevated. Imaging was ordered and CT shows multiple pulmonary emboli, no saddle embolism. Patient does have some EKG changes and troponin is BNP is elevated at 3600. Patient's covid swab was negative. Patient was started on heparin gtt. Patient signed out to Dr. Olsen while awaiting final disposition. He does require bipap and may possibly be a candidate for intervention. Plan to discuss with hospitalist and if felt needed to transfer. <William Olsen, DO - Last Filed: 06/24/20 23:58> Lab Data Labs: Lab Results 06/24/20 06/24/20 06/24/20 Range/Units 16:38 16:52 17:15 WBC (4.5-11.0) X10^3/uL RBC (4.5-5.9) X10^6/uL Hgb (13.5-17.5) g/dL Hct (41-53) % MCV (80-100) fL MCH (26-34) PG MCHC (30-36) % RDW (11.6-14.8) % Plt Count (150-400) X10^3/uL Neut % (Auto) (50-75) % Lymph % (Auto) (25-40) % [place] % (Auto) (3-14) % Eos % (Auto) (2-4) % Baso % (Auto) (0-2) % Neut # (Auto) (6580-6863) /uL Lymph # (Auto) (9696-9983) /uL [place] # (Auto) (0-900) /uL Eos # (Auto) (0-450) /uL Baso # (Auto) (0-100) /uL PT (10.1-12.7) SECONDS INR (0.9-1.3) APTT (26.4-36.2) SECONDS D-Dimer (<230) ng/mL ABG pH 7.36 (7.35-7.45) ABG pCO2 32.5 L (35-45) mmHg ABG pO2 70 L (80-100) mmHg ABG HCO3 18 L (22-26) mmol/L ABG Total CO2 19 L (21-31) mmol/L ABG O2 Saturation 93 L (95-100) % ABG Base Excess -7.0 L (-2-2) mmol/L FiO2 100 Sodium 141 (137-145) mmol/L Potassium 4.0 (3.4-5.1) mmol/L Chloride 106 (98-107) mmol/L Carbon Dioxide 21 L (22-32) mmol/L BUN 22 H (9-20) mg/dL Creatinine 1.13 (0.66-1.25) mg/dL Estimated GFR > 60.0 (>60) mL/min BUN/Creatinine Ratio 19.5 (6-22) Glucose 147 H (80-110) mg/dL Lactate (0.7-2.1) mmol/L Calcium 9.5 (8.4-10.2) mg/dL Magnesium (1.6-2.3) mg/dL Total Bilirubin 0.8 (0.2-1.3) mg/dL AST 33 (17-59) IU/L ALT 30 (<50) IU/L Alkaline Phosphatase 103 (38-126) U/L Total Creatine Kinase (55-170) U/L CK-MB (CK-2) CK-MB (CK-2) Rel Index Troponin I (0.01-0.034) ng/mL NT-Pro-B Natriuret Pep (<450) pg/mL Total Protein 7.6 (6.3-8.2) g/dL Albumin 4.1 (3.5-5.0) g/dL Globulin 3.5 (1.7-4.1) g/dL Albumin/Globulin Ratio 1.2 (1.0-2.8) Procalcitonin (<0.5) ng/mL SARS-CoV-2 (PCR) Negative (Negative) 06/24/20 06/24/20 06/24/20 Range/Units 17:15 17:15 17:15 WBC 10.3 (4.5-11.0) X10^3/uL RBC 4.83 (4.5-5.9) X10^6/uL Hgb 15.9 (13.5-17.5) g/dL Hct 48.8 (41-53) % MCV 101.0 H (80-100) fL MCH 33.0 (26-34) PG MCHC 32.7 (30-36) % RDW 14.6 (11.6-14.8) % Plt Count 212 (150-400) X10^3/uL Neut % (Auto) 78.2 H (50-75) % Lymph % (Auto) 13.7 L (25-40) % [place] % (Auto) 5.0 (3-14) % Eos % (Auto) 2.3 (2-4) % Baso % (Auto) 0.8 (0-2) % Neut # (Auto) 8000 H (8414-0218) /uL Lymph # (Auto) 1400 (6258-9215) /uL [place] # (Auto) 500 (0-900) /uL Eos # (Auto) 200 (0-450) /uL Baso # (Auto) 100 (0-100) /uL PT 14.5 H (10.1-12.7) SECONDS INR 1.3 (0.9-1.3) APTT 34 (26.4-36.2) SECONDS D-Dimer 1347 H (<230) ng/mL ABG pH (7.35-7.45) ABG pCO2 (35-45) mmHg ABG pO2 (80-100) mmHg ABG HCO3 (22-26) mmol/L ABG Total CO2 (21-31) mmol/L ABG O2 Saturation (95-100) % ABG Base Excess (-2-2) mmol/L FiO2 Sodium (137-145) mmol/L Potassium (3.4-5.1) mmol/L Chloride (98-107) mmol/L Carbon Dioxide (22-32) mmol/L BUN (9-20) mg/dL Creatinine (0.66-1.25) mg/dL Estimated GFR (>60) mL/min BUN/Creatinine Ratio (6-22) Glucose (80-110) mg/dL Lactate 4.4 H* (0.7-2.1) mmol/L Calcium (8.4-10.2) mg/dL Magnesium (1.6-2.3) mg/dL Total Bilirubin (0.2-1.3) mg/dL AST (17-59) IU/L ALT (<50) IU/L Alkaline Phosphatase (38-126) U/L Total Creatine Kinase (55-170) U/L CK-MB (CK-2) CK-MB (CK-2) Rel Index Troponin I (0.01-0.034) ng/mL NT-Pro-B Natriuret Pep (<450) pg/mL Total Protein (6.3-8.2) g/dL Albumin (3.5-5.0) g/dL Globulin (1.7-4.1) g/dL Albumin/Globulin Ratio (1.0-2.8) Procalcitonin (<0.5) ng/mL SARS-CoV-2 (PCR) (Negative) 06/24/20 06/24/20 06/24/20 Range/Units 17:15 17:15 17:15 WBC (4.5-11.0) X10^3/uL RBC (4.5-5.9) X10^6/uL Hgb (13.5-17.5) g/dL Hct (41-53) % MCV (80-100) fL MCH (26-34) PG MCHC (30-36) % RDW (11.6-14.8) % Plt Count (150-400) X10^3/uL Neut % (Auto) (50-75) % Lymph % (Auto) (25-40) % [place] % (Auto) (3-14) % Eos % (Auto) (2-4) % Baso % (Auto) (0-2) % Neut # (Auto) (8865-8580) /uL Lymph # (Auto) (2027-8247) /uL [place] # (Auto) (0-900) /uL Eos # (Auto) (0-450) /uL Baso # (Auto) (0-100) /uL PT (10.1-12.7) SECONDS INR (0.9-1.3) APTT (26.4-36.2) SECONDS D-Dimer (<230) ng/mL ABG pH (7.35-7.45) ABG pCO2 (35-45) mmHg ABG pO2 (80-100) mmHg ABG HCO3 (22-26) mmol/L ABG Total CO2 (21-31) mmol/L ABG O2 Saturation (95-100) % ABG Base Excess (-2-2) mmol/L FiO2 Sodium Cancelled (137-145) mmol/L Potassium Cancelled (3.4-5.1) mmol/L Chloride Cancelled (98-107) mmol/L Carbon Dioxide Cancelled (22-32) mmol/L BUN Cancelled (9-20) mg/dL Creatinine Cancelled (0.66-1.25) mg/dL Estimated GFR Cancelled (>60) mL/min BUN/Creatinine Ratio Cancelled (6-22) Glucose Cancelled (80-110) mg/dL Lactate Cancelled (0.7-2.1) mmol/L Calcium Cancelled (8.4-10.2) mg/dL Magnesium 2.1 (1.6-2.3) mg/dL Total Bilirubin Cancelled (0.2-1.3) mg/dL AST Cancelled (17-59) IU/L ALT Cancelled (<50) IU/L Alkaline Phosphatase Cancelled (38-126) U/L Total Creatine Kinase 41 L (55-170) U/L CK-MB (CK-2) TNP CK-MB (CK-2) Rel Index TNP Troponin I 0.029 (0.01-0.034) ng/mL NT-Pro-B Natriuret Pep 3630 H (<450) pg/mL Total Protein Cancelled (6.3-8.2) g/dL Albumin Cancelled (3.5-5.0) g/dL Globulin Cancelled (1.7-4.1) g/dL Albumin/Globulin Ratio Cancelled (1.0-2.8) Procalcitonin 0.05 (<0.5) ng/mL SARS-CoV-2 (PCR) (Negative) 06/24/20 06/24/20 Range/Units 19:35 19:55 WBC (4.5-11.0) X10^3/uL RBC (4.5-5.9) X10^6/uL Hgb (13.5-17.5) g/dL Hct (41-53) % MCV (80-100) fL MCH (26-34) PG MCHC (30-36) % RDW (11.6-14.8) % Plt Count (150-400) X10^3/uL Neut % (Auto) (50-75) % Lymph % (Auto) (25-40) % [place] % (Auto) (3-14) % Eos % (Auto) (2-4) % Baso % (Auto) (0-2) % Neut # (Auto) (7094-4010) /uL Lymph # (Auto) (9439-3528) /uL [place] # (Auto) (0-900) /uL Eos # (Auto) (0-450) /uL Baso # (Auto) (0-100) /uL PT (10.1-12.7) SECONDS INR (0.9-1.3) APTT (26.4-36.2) SECONDS D-Dimer (<230) ng/mL ABG pH (7.35-7.45) ABG pCO2 (35-45) mmHg ABG pO2 (80-100) mmHg ABG HCO3 (22-26) mmol/L ABG Total CO2 (21-31) mmol/L ABG O2 Saturation (95-100) % ABG Base Excess (-2-2) mmol/L FiO2 Sodium (137-145) mmol/L Potassium (3.4-5.1) mmol/L Chloride (98-107) mmol/L Carbon Dioxide (22-32) mmol/L BUN (9-20) mg/dL Creatinine (0.66-1.25) mg/dL Estimated GFR (>60) mL/min BUN/Creatinine Ratio (6-22) Glucose (80-110) mg/dL Lactate 1.2 (0.7-2.1) mmol/L Calcium (8.4-10.2) mg/dL Magnesium (1.6-2.3) mg/dL Total Bilirubin (0.2-1.3) mg/dL AST (17-59) IU/L ALT (<50) IU/L Alkaline Phosphatase (38-126) U/L Total Creatine Kinase (55-170) U/L CK-MB (CK-2) CK-MB (CK-2) Rel Index Troponin I (0.01-0.034) ng/mL NT-Pro-B Natriuret Pep (<450) pg/mL Total Protein (6.3-8.2) g/dL Albumin (3.5-5.0) g/dL Globulin (1.7-4.1) g/dL Albumin/Globulin Ratio (1.0-2.8) Procalcitonin (<0.5) ng/mL SARS-CoV-2 (PCR) Negative (Negative) Imaging Data CT scan - chest: Radiologist's Impression: Anand Rea T 79 M [address] [id number] Scan ReportSigned Patient: Anand Rea TMR#: [id number]: 9Acct:[id number]/Sex: 79 / MDate of Service: 06/24/20Loc: EDAccession Number: [id number] Procedure: CT angio chest PE protocol Ordering Provider: Elizabeth Molina D.O. PROCEDURE: CT ANGIO CHEST PE PROTOCOL INDICATIONS: sob, hx copd TECHNIQUE: After the administration of intravenous contrast, 2 mm thick sections acquired from the pulmonary apices to the posterior costophrenic angles. 3-dimensional maximum intensity projection (MIP) coronal and sagittal reformats were then acquired through the thorax. For radiation dose reduction, the following was used: automated exposure control, adjustment of mA and/or kV according to patient size. COMPARISON: [facility], CT, CT CHEST WO CON, 12/30/2019, 10:46. [facility], CT, THORAX WITHOUT CONTRAST, 07/23/2015, 11:54. FINDINGS: Image quality: Excellent. Pulmonary arteries: There are multiple bilateral pulmonary emboli, involving the right lobar and segmental pulmonary arteries as well as the left lower lobe segmental pulmonary arteries. Poor opacification of the upper lobe pulmonary arteries however no definite intraluminal filling defects. No definite leftward bowing of the interventricular septum. Enlargement of the central pulmonary arteries suggestive of pulmonary arterial hypertension. Severe emphysema is seen bilaterally. Scattered subsegmental atelectasis and/or scarring. No focal consolidation. There is nodular appearance measuring 1.5 x 1.5 cm involving the superior segment of the right lower lobe on image 151/5 which may be slightly progressed since the prior study although unclear if this is nodular scarring versus neoplastic. Consider further evaluation with PET-CT No pleural effusions or pneumothorax. Central and peripheral airways are patent. Mediastinum: Heart size is normal, without pericardial effusion. No mediastinal or hilar adenopathy. Thoracic aorta is normal in caliber and enhancement. Large hiatal hernia. Bones and chest wall: No suspicious bony lesions. Ribs and thoracic spine appear intact throughout. Thyroid is grossly unremarkable No axillary or supraclavicular adenopathy. Abdomen: Partially visualized presumed left renal cysts although indeterminate . Subcentimeter hepatic foci are statistically cysts or hemangiomas, although technically too small to characterize accurately and therefore nonspecific. IMPRESSION: Bilateral lower lobe pulmonary emboli as above. Severe emphysema and interstitial changes. 1.5 cm nodular focus involving the right lung superior segment warrants continued follow-up and further evaluation. Consider PET-CT to exclude malignant/metastatic possibilities (versus nodular scarring) Large hiatal hernia Additional chronic and incidental findings as above. Critical findings were personally telephoned and discussed with Dr. Molina in the emergency department at 1940 hours on 06/24/20. Dictated by: Sean Ramsay M.D. on 06/24/2020 at 19:32 Approved by: Sean Ramsay M.D. on 06/24/2020 at 19:43 <William Olsen, - Last Filed: 06/24/20 23:58> Critical Care Time Critical Care Time: Yes Total Critical Care Time: 30 Attestation: The high probability of a clinically significant, sudden or life threatening deterioration of the [CV] system(s) required my full and direct attention, intervention and personal management. The aggregate critical care time was [30] minutes. This time is in addition to time spent performing reported procedures but includes the following: [x] Data Review and interpretation [x] Patient assessment and monitoring of vital signs [x] Documentation [x] Medication orders and management Discharge Plan Departure Patient Disposition: [facility] Clinical Impression: Acute and chronic respiratory failure with hypoxia, Pulmonary embolism Prescriptions: No Action allopurinol 100 mg tablet 100 mg PO DAILY Qty: 90 RF: 1 Spiriva Respimat 2.5 mcg/actuation mist 2 puff INHALATION DAILY Qty: 4 RF: 2 omeprazole 40 mg capsule,delayed release(DR/EC) 40 mg PO DAILY RF: 0 omeprazole 20 mg capsule,delayed release(DR/EC) 20 mg PO BID Qty: 180 RF: 3 doxycycline hyclate 100 mg capsule 100 mg PO BID Qty: 14 RF: 0 prednisone 50 mg tablet 50 mg PO DAILY Qty: 5 RF: 0 albuterol sulfate [ProAir HFA] 90 mcg/actuation Hfa Aerosol Inhaler 2 puff INHALATION Q4H PRN (Reason: Wheezing) RF: 0 cholecalciferol (vitamin D3) [Vitamin D3] 2,000 unit Tablet 2,000 unit PO DAILY RF: 0 Stool Softener 50 mg Capsule 50 mg PO DAILY RF: 0 oxycodone 5 mg tablet 5 mg PO Q4H PRN (Reason: painful procedure) Qty: 14 RF: 0 Referrals: Ivan Cobb DO [Primary Care Provider] -
[2020-06-24 17:00] LABS: Fractionated Inspired Oxygen 100; HCO3 ABG 18 mmol/L (22-26); Oxygen Saturation ABG 93 % (95-100); PCO2 ABG 32.5 mmHg (35-45); PO2 ABG 70 mmHg (80-100); TCO2 ABG 19 mmol/L (21-31); pH ABG 7.36 (7.35-7.45)
[2020-06-24 17:03] LABS: COVID19 -Nasal RAPID Negative (Negative)
[2020-06-24 17:40] LABS: Add Manual Diff / Slide Review NO; Basophils Absolute Auto 100 /uL (0-100); Basophils Percent Auto 0.8 % (0-2); Eosinophils Absolute Auto 200 /uL (0-450); Eosinophils Percent Auto 2.3 % (2-4); Hematocrit 48.8 % (41-53); Hemoglobin 15.9 g/dL (13.5-17.5); Lymphocytes Absolute Auto 1400 /uL (1100-4500); Lymphocytes Percent Auto 13.7 % (25-40); Mean Corpuscular HGB Conc 32.7 % (30-36); Monocytes Absolute Auto 500 /uL (0-900); Neutrophils Absolute Auto 8000 /uL (1500-7000); Neutrophils Percent Auto 78.2 % (50-75); Platelet Count 212 X10^3/uL (150-400); Red Blood Cell Count 4.83 X10^6/uL (4.5-5.9); Red Cell Distribution Width 14.6 % (11.6-14.8); White Blood Cell Count 10.3 X10^3/uL (4.5-11.0)
[2020-06-24 17:46] LABS: INR 1.3 (0.9-1.3); Prothrombin Time 14.5 SECONDS (10.1-12.7)
[2020-06-24 17:49] LABS: PTT Partial Thromboplastin Tim 34 SECONDS (26.4-36.2)
[2020-06-24 17:51] LABS: Alanine Aminotransferase 30 IU/L (<50); Albumin 4.1 g/dL (3.5-5.0); Albumin Globulin Ratio 1.2 (1.0-2.8); Alkaline Phosphatase 103 U/L (38-126); Aspartate Aminotransferase 33 IU/L (17-59); BUN Creatinine Ratio 19.5 (6-22); Bilirubin Total 0.8 mg/dL (0.2-1.3); Blood Urea Nitrogen 22 mg/dL (9-20); Calcium 9.5 mg/dL (8.4-10.2); Carbon Dioxide 21 mmol/L (22-32); Chloride 106 mmol/L (98-107); Creatine Kinase 41 U/L (55-170); Estimated Glomerular Filt Rate > 60.0 mL/min (>60); Globulin 3.5 g/dL (1.7-4.1); Glucose 147 mg/dL (80-110); HEMOLYSIS < 15 (0-50); Magnesium 2.1 mg/dL (1.6-2.3); Sodium 141 mmol/L (137-145); Total Protein 7.6 g/dL (6.3-8.2)
[2020-06-24 17:53] LABS: Lactate (Lactic Acid) 4.4 mmol/L (0.7-2.1)
[2020-06-24 17:56] LABS: D Dimer 1347 ng/mL (<230)
[2020-06-24 18:03] LABS: NT-proBNP (BNP-Adult 18+) 3630 pg/mL (<450); Troponin I 0.029 ng/mL (0.01-0.034)
--- NOTE | 2020-06-24 18:06 | DI.CT.S_ITS ---
PROCEDURE: CT ANGIO CHEST PE PROTOCOL INDICATIONS: sob, hx copd TECHNIQUE: After the administration of intravenous contrast, 2 mm thick sections acquired from the pulmonary apices to the posterior costophrenic angles. 3-dimensional maximum intensity projection (MIP) coronal and sagittal reformats were then acquired through the thorax. For radiation dose reduction, the following was used: automated exposure control, adjustment of mA and/or kV according to patient size. COMPARISON: [facility], CT, CT CHEST WO CON, 12/30/2019, 10:46. [facility], CT, THORAX WITHOUT CONTRAST, 07/23/2015, 11:54. FINDINGS: Image quality: Excellent. Pulmonary arteries: There are multiple bilateral pulmonary emboli, involving the right lobar and segmental pulmonary arteries as well as the left lower lobe segmental pulmonary arteries. Poor opacification of the upper lobe pulmonary arteries however no definite intraluminal filling defects. No definite leftward bowing of the interventricular septum. Enlargement of the central pulmonary arteries suggestive of pulmonary arterial hypertension. Severe emphysema is seen bilaterally. Scattered subsegmental atelectasis and/or scarring. No focal consolidation. There is nodular appearance measuring 1.5 x 1.5 cm involving the superior segment of the right lower lobe on image 151/5 which may be slightly progressed since the prior study although unclear if this is nodular scarring versus neoplastic. Consider further evaluation with PET-CT No pleural effusions or pneumothorax. Central and peripheral airways are patent. Mediastinum: Heart size is normal, without pericardial effusion. No mediastinal or hilar adenopathy. Thoracic aorta is normal in caliber and enhancement. Large hiatal hernia. Bones and chest wall: No suspicious bony lesions. Ribs and thoracic spine appear intact throughout. Thyroid is grossly unremarkable No axillary or supraclavicular adenopathy. Abdomen: Partially visualized presumed left renal cysts although indeterminate . Subcentimeter hepatic foci are statistically cysts or hemangiomas, although technically too small to characterize accurately and therefore nonspecific. IMPRESSION: Bilateral lower lobe pulmonary emboli as above. Severe emphysema and interstitial changes. 1.5 cm nodular focus involving the right lung superior segment warrants continued follow-up and further evaluation. Consider PET-CT to exclude malignant/metastatic possibilities (versus nodular scarring) Large hiatal hernia Additional chronic and incidental findings as above. Critical findings were personally telephoned and discussed with Dr. Molina in the emergency department at 1940 hours on 06/24/20. Dictated by: Sean Ramsay M.D. on 06/24/2020 at 19:32 Approved by: Sean Ramsay M.D. on 06/24/2020 at 19:43
[2020-06-24 18:07] LABS: Procalcitonin 0.05 ng/mL (<0.5)
[2020-06-24] MEDS: ALBUTEROL/IPRATROPIUM 3 ML AMPUL INH (18:55)
[2020-06-24] MEDS: methylPREDNISolone 125 MG/2 ML VIAL IV (18:56)
[2020-06-24 19:26] LABS: Reflexed Lactate in 2 Hours Y
[2020-06-24 20:02] LABS: Lactate 2HR (Lactic Acid Rflx) 1.2 mmol/L (0.7-2.1)
[2020-06-24] MEDS: HEPARIN 5,000 UNIT/ML VIAL 4000 UNIT IV (20:03)
[2020-06-24] MEDS: HEPARIN DRIP 25,000 UNIT/500 ML IV.SOLN 20 UNIT IV (20:05)
[2020-06-24] MEDS: FUROSEMIDE 40 MG/4 ML VIAL IV (20:25)
[2020-06-24 21:16] LABS: COVID19 - ADMIT (NP swab/PCR) Negative (Negative)
== END 2020-06-25 00:08 | disposition short-term general hospital (02) ==
PROVIDERS: Emergency Medicine; Emergency Provider Emergency Medicine; PCP Family Medicine
DX: J96.21 Acute and chronic respiratory failure with hypoxia (principal); I26.99 Other pulmonary embolism without acute cor pulmonale
CPT/HCPCS: 36415; 36600; 71045; 71275; 80053; 82550; 82805; 83605; 83735; 83880; 84145; 84484; 85025; 85379; 85610; 85730; 87040; 87635; 93005; 94640; 96365; 96366; 96375; 99284; 99291; 99292; C9803; J1644; J1940; J2930; Q9967

== ENCOUNTER 2020-07-06 13:21 | Emergency (ER) | payer MEDICARE, SELFPAY ==
[2020-07-05 08:44] VITALS: PULSE 84; RESP 31; O2SAT 97
[2020-07-06 13:27] VITALS: BP 132/70; PULSE 69; RESP 30; TEMP 37.2; O2SAT 98; BMI 24.9
--- NOTE | 2020-07-06 13:39 | ED_ITS ---
HPI - Extremity Problem General Chief complaint: Extremity Problem,Nontraumatic Stated complaint: blood clots,gout pain,joint pain Time Seen by Provider: 07/06/20 13:24 Source: patient Mode of arrival: Wheelchair Limitations: no limitations History of Present Illness HPI Narrative: 79-year-old male. Was just recently seen at this facility and subsequently transferred to [facility] after being found to have a pulmonary embolism. During that hospital stay it was found that he was positive for right lower extremity DVT. He also states that he had his left leg exam in but does not think that he had any blood clot in that leg although he is not completely sure. Since that time he has been on 8 L via non-rebreather. He states he has not any change in his respiratory status. No chest pain. A co uple days ago he talk to his primary doctor about pain and swelling to his left foot in his left great toe. He does have a history of gout but is been a very long time since he has had any attack. He does take allopurinol on a daily basis but does not think that he had it while he was an inpatient. He denies any fevers. He has had gout attacks in his left foot and left great toe in the past. His primary doctor was also worried about a clot in his left lower extremity. Related Data Home Medications Medication Instructions Recorded Confirmed omeprazole 40 mg capsule,delayed 40 mg PO DAILY 03/15/19 06/11/20 release Stool Softener 50 mg PO DAILY 04/25/19 06/11/20 albuterol sulfate [ProAir HFA] 2 puff INHALATION Q4H PRN 04/25/19 06/11/20 cholecalciferol (vitamin D3) 2,000 unit PO DAILY 04/25/19 06/11/20 [Vitamin D3] Previous Rx's Medication Instructions Recorded oxycodone 5 mg PO Q4H PRN #14 tab 04/25/19 omeprazole 20 mg capsule,delayed 20 mg PO BID #180 cap 06/07/19 release allopurinol 100 mg tablet 100 mg PO DAILY #90 tab 03/13/20 doxycycline hyclate 100 mg capsule 100 mg PO BID #14 cap 06/11/20 prednisone 50 mg tablet 50 mg PO DAILY #5 tab 06/11/20 tiotropium bromide 2.5 2 puff INHALATION DAILY #4 g 06/14/20 mcg/actuation mist for inhalation apixaban 5 mg tablet 10 mg PO BID #120 tab 07/06/20 hydrocodone-acetaminophen 1 tab PO Q4-6H PRN #14 tab 07/06/20 Allergies Allergy/AdvReac Type Severity Reaction Status Date / Time No Known Drug Allergies Allergy Verified 07/06/20 13:33 Review of Systems Constitutional Constitutional: Denies fever(s) and Denies headache(s) ENT Ears, Nose, Mouth, and Throat: Denies vertigo and Denies headache(s) Cardiovascular Cardiovascular: Denies chest pain and Reports dyspnea (No change from baseline) Respiratory Respiratory: Reports dyspnea (No change from baseline) Gastrointestinal Gastrointestinal: Denies abdominal pain Musculoskeletal Comments: Left foot and great toe pain Integumentary/Breasts Comments: Redness around the left foot Neurologic Neurologic: Denies behavioral changes, Denies vertigo and Denies headache(s) Psychiatric Psychiatric: Denies behavioral changes Hematologic/Lymphatic On Anticoagulants: Yes Allergic/Immunologic Allergic/Immunologic: Denies urticaria Patient History Medical History Durán's esophagus Constipation COPD (chronic obstructive pulmonary disease) Edema Emphysema of lung Former smoker GERD (gastroesophageal reflux disease) Gout Hard of hearing Hyperglycemia Impaired vision Raynaud phenomenon Sleep apnea with use of continuous positive airway pressure (CPAP) Family History Father Heart disease Social History marital status: household members: spouse Smoking Status: Former smoker alcohol intake: never substance use type: does not use Smoking Status: Former smoker alcohol intake frequency: holidays/special occasions only Substance Use Type: does not use Exam Initial Vital Signs Initial Vital Signs: Vital Signs Temperature 99.0 F 07/06/20 13:27 Pulse Rate 69 07/06/20 13:27 Respiratory Rate 30 H 07/06/20 13:27 Blood Pressure 132/70 07/06/20 13:27 Pulse Oximetry 98 07/06/20 13:27 Const General: cooperative and comfortable HENMT Head: normal to inspection Resp Effort & Inspection: tachypneic Cardio Rate: regular rate GI Inspection: non-distended Skin Other: Redness around the left foot in the left great toe and along the lateral aspect of the left foot Neuro General: patient alert, patient awake and patient oriented x3 Extrem General: capillary refill normal Psych Appearance: grossly normal and well kempt Course Orders Ordered: ED Orders 07/06/20 14:09 Basic Metabolic Panel Stat Complete Blood Count AUTO DIFF Stat Partial Thromboplastin Time Stat Prothrombin Time INR Stat Uric Acid Stat 07/06/20 15:02 US periph venous low extrem bi Stat Vital Signs Vital signs: Vital Signs - 8 hr 07/06/20 13:27 07/06/20 14:00 07/06/20 15:00 Temperature 99.0 F Pulse Rate 69 66 63 Respiratory Rate 30 H 23 25 H Blood Pressure 132/70 115/67 117/68 Pulse Oximetry 98 97 95 07/06/20 16:00 Temperature Pulse Rate 64 Respiratory Rate 14 Blood Pressure 113/55 L Pulse Oximetry 96 MDM - Extremity (Nontraumatic) Lab Data Attestation: I reviewed the patient's lab results. Result diagrams: 07/06/20 14:09 07/06/20 14:09 Labs: Lab Results 07/06/20 07/06/20 07/06/20 Range/Units 14:09 14:09 14:09 WBC 10.0 (4.5-11.0) X10^3/uL RBC 4.59 (4.5-5.9) X10^6/uL Hgb 15.1 (13.5-17.5) g/dL Hct 45.2 (41-53) % MCV 98.4 (80-100) fL MCH 33.0 (26-34) PG MCHC 33.5 (30-36) % RDW 14.2 (11.6-14.8) % Plt Count 222 (150-400) X10^3/uL Neut % (Auto) 71.7 (50-75) % Lymph % (Auto) 14.8 L (25-40) % Saline % (Auto) 9.8 (3-14) % Eos % (Auto) 3.1 (2-4) % Baso % (Auto) 0.6 (0-2) % Neut # (Auto) 7100 H (3127-7656) /uL Lymph # (Auto) 1500 (8575-9618) /uL Saline # (Auto) 1000 H (0-900) /uL Eos # (Auto) 300 (0-450) /uL Baso # (Auto) 100 (0-100) /uL PT 28.8 H (10.1-12.7) SECONDS INR 2.5 H (0.9-1.3) APTT 46 H D (26.4-36.2) SECONDS Sodium 133 L (137-145) mmol/L Potassium 4.3 (3.4-5.1) mmol/L Chloride 98 (98-107) mmol/L Carbon Dioxide 29 (22-32) mmol/L BUN 18 (9-20) mg/dL Creatinine 1.00 (0.66-1.25) mg/dL Estimated GFR > 60.0 (>60) mL/min BUN/Creatinine Ratio 18.0 (6-22) Glucose 110 (80-110) mg/dL Uric Acid (3.5-8.5) mg/dL Calcium 9.3 (8.4-10.2) mg/dL 07/06/20 Range/Units 14:09 WBC (4.5-11.0) X10^3/uL RBC (4.5-5.9) X10^6/uL Hgb (13.5-17.5) g/dL Hct (41-53) % MCV (80-100) fL MCH (26-34) PG MCHC (30-36) % RDW (11.6-14.8) % Plt Count (150-400) X10^3/uL Neut % (Auto) (50-75) % Lymph % (Auto) (25-40) % Saline % (Auto) (3-14) % Eos % (Auto) (2-4) % Baso % (Auto) (0-2) % Neut # (Auto) (1788-5888) /uL Lymph # (Auto) (9268-0460) /uL Saline # (Auto) (0-900) /uL Eos # (Auto) (0-450) /uL Baso # (Auto) (0-100) /uL PT (10.1-12.7) SECONDS INR (0.9-1.3) APTT (26.4-36.2) SECONDS Sodium (137-145) mmol/L Potassium (3.4-5.1) mmol/L Chloride (98-107) mmol/L Carbon Dioxide (22-32) mmol/L BUN (9-20) mg/dL Creatinine (0.66-1.25) mg/dL Estimated GFR (>60) mL/min BUN/Creatinine Ratio (6-22) Glucose (80-110) mg/dL Uric Acid 6.4 (3.5-8.5) mg/dL Calcium (8.4-10.2) mg/dL Imaging Data US - DVT: Radiologist's Impression: [address] [id number] ReportSigned Patient: Anand Rea TMR#: [id number]: 9Acct:[id number]/Sex: 79 / MDate of Service: 07/06/20Loc: EDAccession Number: [id number] Procedure: US periph venous low extrem bi Ordering Provider: Anand Condon D.O. PROCEDURE: US PERIPH VENOUS LOW EXTREM BI INDICATIONS: EDEMA TECHNIQUE: Real-time imaging, as well as color and pulse Doppler interrogation, were performed of the deep veins of both legs from the inguinal ligament to the popliteal fossa. COMPARISON: None. FINDINGS: Right: The common femoral and popliteal veins are normally compressible, and free of intraluminal thrombus. Occlusive thrombus is noted in the right deep femoral vein. Left: The common femoral, femoral and popliteal veins are normally compressible, and free of intraluminal thrombus. Color and pulse Doppler demonstrate normal phasic intravascular flow. There is normal augmentation response to distal compression maneuver. IMPRESSION: 1. Abnormal study demonstrating deep vein thrombosis involving the right lower extremity. 2. No evidence of deep vein thrombosis involving the left lower extremity. Dictated by: Tasneem Mccann MD, PhD on 07/06/2020 at 15:31 Approved by: Tasneem Mccann MD, PhD on 07/06/2020 at 15:32 [facility] Narrative Medical decision making narrative: He has a DVT in his right lower extremity which is known. He is on anticoagulation. Is at baseline respiratory status. He does not have a DVT in his left lower extremity. His physical exam and his left foot is consistent with gout. The patient states that it feels like it is gout. I do have low suspicion for cellulitis based on the appearance of it and also his physical exam. He is very reluctant to take his indomethacin because of the anticoagulation that he is currently on. I did discuss the concerns with these 2 medications in the bleeding issues. He is on allopurinol. He was not on allopurinol while he was admitted to the hospital couple days ago. I have low suspicion for fracture. Given his reluctance to take any nonsteroidal anti-inflammatories and given the fact that his biggest complaint today is discomfort will send him home with pain medication. We did discuss this and the need to avoid becoming drowsy and falling. He was given return precautions and follow-up instructions. He expressed understanding and agreement. Discharge Plan Departure Patient Disposition: Home Clinical Impression: Gout Instructions: Gout (Alternative Therapy), DI for Gout Activity Restrictions/Additional Instructions: Continue all of your medications as directed. A prescription for pain medication was electronically transmitted to the pharmacy of her choice. Please take it as directed and as needed. Contact your primary provider for a follow- up. Return to the emergency department for any new or worsening symptoms Prescriptions: New hydrocodone-acetaminophen 5-325 mg tablet 1 tab PO Q4-6H PRN (Reason: pain) Qty: 14 RF: 0 No Action allopurinol 100 mg tablet 100 mg PO DAILY Qty: 90 RF: 1 Spiriva Respimat 2.5 mcg/actuation mist 2 puff INHALATION DAILY Qty: 4 RF: 2 Eliquis 5 mg tablet 10 mg PO BID Qty: 120 RF: 0 omeprazole 40 mg capsule,delayed release(DR/EC) 40 mg PO DAILY RF: 0 omeprazole 20 mg capsule,delayed release(DR/EC) 20 mg PO BID Qty: 180 RF: 3 doxycycline hyclate 100 mg capsule 100 mg PO BID Qty: 14 RF: 0 prednisone 50 mg tablet 50 mg PO DAILY Qty: 5 RF: 0 albuterol sulfate [ProAir HFA] 90 mcg/actuation Hfa Aerosol Inhaler 2 puff INHALATION Q4H PRN (Reason: Wheezing) RF: 0 cholecalciferol (vitamin D3) [Vitamin D3] 2,000 unit Tablet 2,000 unit PO DAILY RF: 0 Stool Softener 50 mg Capsule 50 mg PO DAILY RF: 0 oxycodone 5 mg tablet 5 mg PO Q4H PRN (Reason: painful procedure) Qty: 14 RF: 0 Referrals: Ivan Cobb, [Primary Care Provider] -
[2020-07-06 14:00] VITALS: BP 115/67; PULSE 66; RESP 23; O2SAT 97
[2020-07-06 14:30] LABS: Add Manual Diff / Slide Review NO; Basophils Absolute Auto 100 /uL (0-100); Basophils Percent Auto 0.6 % (0-2); Eosinophils Absolute Auto 300 /uL (0-450); Eosinophils Percent Auto 3.1 % (2-4); Hematocrit 45.2 % (41-53); Hemoglobin 15.1 g/dL (13.5-17.5); Lymphocytes Absolute Auto 1500 /uL (1100-4500); Lymphocytes Percent Auto 14.8 % (25-40); Mean Corpuscular HGB Conc 33.5 % (30-36); Mean Corpuscular Volume 98.4 fL (80-100); Monocytes Absolute Auto 1000 /uL (0-900); Monocytes Percent Auto 9.8 % (3-14); Neutrophils Absolute Auto 7100 /uL (1500-7000); Neutrophils Percent Auto 71.7 % (50-75); Platelet Count 222 X10^3/uL (150-400); Red Blood Cell Count 4.59 X10^6/uL (4.5-5.9); Red Cell Distribution Width 14.2 % (11.6-14.8)
[2020-07-06 14:40] LABS: Uric Acid 6.4 mg/dL (3.5-8.5)
[2020-07-06 14:41] LABS: Blood Urea Nitrogen 18 mg/dL (9-20); Calcium 9.3 mg/dL (8.4-10.2); Carbon Dioxide 29 mmol/L (22-32); Chloride 98 mmol/L (98-107); Estimated Glomerular Filt Rate > 60.0 mL/min (>60); Glucose 110 mg/dL (80-110); HEMOLYSIS < 15 (0-50); Potassium 4.3 mmol/L (3.4-5.1); Sodium 133 mmol/L (137-145)
[2020-07-06 14:44] LABS: INR 2.5 (0.9-1.3); Prothrombin Time 28.8 SECONDS (10.1-12.7)
[2020-07-06 14:46] LABS: PTT Partial Thromboplastin Tim 46 SECONDS (26.4-36.2)
[2020-07-06 15:00] VITALS: BP 117/68; PULSE 63; RESP 25; O2SAT 95
--- NOTE | 2020-07-06 15:02 | DI.US.S_ITS ---
PROCEDURE: US PERIPH VENOUS LOW EXTREM BI INDICATIONS: EDEMA TECHNIQUE: Real-time imaging, as well as color and pulse Doppler interrogation, were performed of the deep veins of both legs from the inguinal ligament to the popliteal fossa. COMPARISON: None. FINDINGS: Right: The common femoral and popliteal veins are normally compressible, and free of intraluminal thrombus. Occlusive thrombus is noted in the right deep femoral vein. Left: The common femoral, femoral and popliteal veins are normally compressible, and free of intraluminal thrombus. Color and pulse Doppler demonstrate normal phasic intravascular flow. There is normal augmentation response to distal compression maneuver. IMPRESSION: 1. Abnormal study demonstrating deep vein thrombosis involving the right lower extremity. 2. No evidence of deep vein thrombosis involving the left lower extremity. Dictated by: Tasneem Mccann MD, PhD on 07/06/2020 at 15:31 Approved by: Tasneem Mccann MD, PhD on 07/06/2020 at 15:32
--- NOTE | 2020-07-06 15:34 | PC.NURSE ---
tried to edit vital signs for 1400 the 02sat was taken with patient on oxymask at 8 liters. He was discharged from [facility] with instructions to use this oxymask at 8 liters ( hx of pulmonary emboli )
[2020-07-06 16:00] VITALS: BP 113/55; PULSE 64; RESP 14; O2SAT 96
== END 2020-07-06 16:00 | disposition home or self-care (01) ==
PROVIDERS: Emergency Provider Emergency Medicine; PCP Family Medicine
DX: M10.9 Gout, unspecified (principal); I82.4Z1 Acute embolism and thrombosis of unspecified deep veins of right distal lower extremity; Z79.01 Long term (current) use of anticoagulants
CPT/HCPCS: 36415; 80048; 84550; 85025; 85610; 85730; 93041; 93970; 99283; 99284

== ENCOUNTER → 2020-08-11 11:05 | Outpatient (CLI) | payer MEDICARE, SELFPAY ==
[2020-07-11 10:41] VITALS: PULSE 84; RESP 31; O2SAT 97
[2020-08-11 13:38] LABS: COVID19 - ADMIT (NP swab/PCR) Negative (Negative)
== END ==
PROVIDERS: PCP Family Medicine; Visit Provider Physician Assistant
DX: Z20.822 Contact with and (suspected) exposure to COVID-19 (principal)
CPT/HCPCS: C9803; U0003

== ENCOUNTER → 2020-08-16 11:38 | Outpatient (CLI) | payer MEDICARE, SELFPAY ==
[2020-07-11 10:41] VITALS: PULSE 84; RESP 31; O2SAT 97
[2020-08-16 13:14] LABS: Prostate Specific Antigen Scrn 1.12 ng/mL (0.1-4.0)
== END ==
PROVIDERS: PCP Family Medicine; Referring Provider Family Medicine; Visit Provider Family Medicine
DX: Z12.5 Encounter for screening for malignant neoplasm of prostate (principal)
CPT/HCPCS: 36415; G0103

== ENCOUNTER → 2020-09-15 11:34 | Outpatient (CLI) | payer MEDICARE, SELFPAY ==
[2020-07-11 10:41] VITALS: PULSE 84; RESP 31; O2SAT 97
[2020-09-15 13:18] LABS: COVID19 - ADMIT (NP swab/PCR) Negative (Negative)
== END ==
PROVIDERS: PCP Family Medicine; Visit Provider Physician Assistant
DX: Z20.822 Contact with and (suspected) exposure to COVID-19 (principal)
CPT/HCPCS: C9803; U0003

== ENCOUNTER → 2020-10-13 10:27 | Outpatient (CLI) | payer MEDICARE, SELFPAY ==
[2020-07-11 10:41] VITALS: PULSE 84; RESP 31; O2SAT 97
[2020-10-13 12:37] LABS: COVID19 -Nasal RAPID Negative (Negative)
== END ==
PROVIDERS: PCP Family Medicine; Visit Provider Physician Assistant
DX: Z01.812 Encounter for preprocedural laboratory examination (principal); Z20.822 Contact with and (suspected) exposure to COVID-19
CPT/HCPCS: 87635; C9803

== ENCOUNTER → 2020-10-29 08:54 | Outpatient (CLI) | payer MEDICARE, SELFPAY ==
[2020-07-11 10:41] VITALS: PULSE 84; RESP 31; O2SAT 97
[2020-10-29 12:36] LABS: COVID-19 CEPHEID PCR (VTM/NP) Negative (Negative)
== END ==
PROVIDERS: PCP Family Medicine; Visit Provider Physician Assistant
DX: Z20.822 Contact with and (suspected) exposure to COVID-19 (principal)
CPT/HCPCS: C9803; U0003

== ENCOUNTER → 2020-12-19 11:17 | Outpatient (CLI) | payer MEDICARE, SELFPAY ==
[2020-07-11 10:41] VITALS: PULSE 84; RESP 31; O2SAT 97
[2020-12-19 13:41] LABS: COVID-19 CEPHEID PCR (VTM/NP) Negative (Negative)
== END ==
PROVIDERS: PCP Family Medicine; Visit Provider Physician Assistant
DX: Z20.822 Contact with and (suspected) exposure to COVID-19 (principal)
CPT/HCPCS: C9803; U0003

== ENCOUNTER → 2020-12-27 08:59 | Outpatient (CLI) | payer MEDICARE, SELFPAY ==
[2020-07-11 10:41] VITALS: PULSE 84; RESP 31; O2SAT 97
[2020-12-27 12:01] LABS: COVID-19 CEPHEID PCR (VTM/NP) Negative (Negative)
== END ==
PROVIDERS: PCP Family Medicine; Visit Provider Nurse Practitioner Family
DX: Z20.822 Contact with and (suspected) exposure to COVID-19 (principal)
CPT/HCPCS: U0003

== ENCOUNTER 2021-01-13 08:48 | Inpatient (IN) | payer MEDICARE, SELFPAY ==
[2020-07-11 10:41] VITALS: PULSE 84; RESP 31; O2SAT 97
[2021-01-13] VITALS (67 sets, daily range): BP systolic 93–148; BP diastolic 52–84; PULSE 67–100; RESP 13–42; TEMP 35.8–36.6; O2SAT 64–97; BMI 22.8
--- NOTE | 2021-01-13 08:58 | DI.RAD.S_ITS ---
PROCEDURE: XR CHEST 1V INDICATIONS: short of breath TECHNIQUE: One view of the chest was acquired. COMPARISON: [facility], CR, XR CHEST 1V, 06/24/2020, 17:15. FINDINGS: Surgical changes and devices: None. Lungs and pleura: There is a large left-sided pneumothorax with near complete collapse of the left lung. There is opacities at the lung bases likely representing atelectasis. No significant pleural effusion. Hyperlucency of the right lung apex consistent with known COPD/emphysema. Mediastinum: There is rightward mediastinal shift. Heart size appears within normal limits. Bones and chest wall: No suspicious bony lesions. Overlying soft tissues appear unremarkable. IMPRESSION: Large left-sided pneumothorax with rightward mediastinal shift concerning for tension etiology. There is near complete collapse of the left lung. Opacities at the lung bases likely represent atelectasis. ER was called by Dr. Nic Griffiths at approximately 0835 hours AST on 01/13/2021. The ordering provider Dr. Karli Terrell was unavailable as she was placing chest tube on this patient and was already aware of the critical results. Findings consistent with known COPD/emphysema. Dictated by: Nic Griffiths D.O. on 01/13/2021 at 8:33 Approved by: Nic Griffiths D.O. on 01/13/2021 at 8:39
--- NOTE | 2021-01-13 09:00 | ED_ITS ---
HPI - SOB/Dyspnea General Chief Complaint: Shortness of Breath/Dyspnea Stated Complaint: SOB Time Seen by Provider: 01/13/21 08:55 History of Present Illness HPI Narrative: Patient is a 80-year-old male with history of COPD, pulmonary hypertension, bilateral pulmonary embolism on Eliquis on 4 L of home oxygen presenting with sudden onset worsening shortness of breath. He had in IR pulm onary angiogram on 01/10/2021 at [facility] which diagnosed chronic thromboembolic disease type 3. He had a recent encounter with his primary care provider. He states he was doing well yesterday he has not had any fever or chills. He is having some chest discomfort. His O2 sat actually 63 per set on 15 L non-rebreather. He is tachypneic and does not appear well. He denies any peripheral swelling or orthopnea. Related Data Home Medications Medication Instructions Recorded Confirmed albuterol sulfate 90 mcg/actuation 2 puff INHALATION Q4H PRN 04/25/19 01/13/21 aerosol inhaler (ProAir HFA) cholecalciferol (vitamin D3) 50 2,000 unit PO DAILY 04/25/19 11/19/20 mcg (2,000 unit) tablet (Vitamin D3) docusate sodium 50 mg capsule 50 mg PO DAILY 04/25/19 11/19/20 (Stool Softener) torsemide 10 mg tablet 10 mg PO DAILY 01/13/21 01/13/21 Previous Rx's Medication Instructions Recorded omeprazole 20 mg capsule,delayed 20 mg PO BID #180 cap 08/03/20 release allopurinol 100 mg tablet See Rx Instructions .ROUTE 09/26/20 .COMPLEX #90 tab colchicine 0.6 mg tablet 1.2 mg PO DAILY PRN #30 tab 11/06/20 apixaban 5 mg tablet (Eliquis) 5 mg PO BID #180 tab 11/30/20 tiotropium bromide 2.5 2 puff INHALATION DAILY #4 g 12/06/20 mcg/actuation mist for inhalation (Spiriva Respimat) Allergies Allergy/AdvReac Type Severity Reaction Status Date / Time No Known Drug Allergies Allergy Verified 01/13/21 10:31 Review of Systems Review of Systems Narrative: GENERAL: Denies chills, fatigue, malaise, fever, sweats, travel HEENT: Denies sinus pain, ear pain, sore throat, difficulty swallowing, neck pain RESPIRATORY: Shortness of breath, multiple chronic lung issues CARDIOVASCULAR: Chest tightness GASTROINTESTINAL: Denies nausea, vomiting, abdominal pain, diarrhea, constipation, melena. : Denies dysuria, frequency, incontinence, hematuria, urinary retention, flank pain. MUSCULOSKELETAL: Denies weakness, joint pain, or bony pain SKIN: No rash, no erythema, no pruritus NEUROLOGIC: Denies weakness, dizziness, headache, numbness, change in speech, confusion PSYCHIATRIC: No concerning psychosocial issues. 12 point review of systems is negative except for those stated above and HPI Patient History Medical History (Updated 01/13/21 @ 13:01 by Karli Terrell DO) Durán's esophagus Constipation COPD (chronic obstructive pulmonary disease) Edema Emphysema of lung Former smoker GERD (gastroesophageal reflux disease) Gout Hard of hearing Hyperglycemia Impaired vision Prostate enlargement Pulmonary embolism, bilateral Raynaud phenomenon Right upper lobe pulmonary nodule Sleep apnea with use of continuous positive airway pressure (CPAP) Family History Father Heart disease Social History marital status: household members: spouse Smoking Status: Former smoker alcohol intake: never substance use type: does not use Smoking Status: Former smoker alcohol intake frequency: holidays/special occasions only Substance Use Type: does not use Exam Initial Vital Signs Initial Vital Signs: Vital Signs Respiratory Rate 38 H 01/13/21 08:38 Pulse Oximetry 76 L 01/13/21 08:38 GENERAL: Alert 80-year-old male appears in moderate to severe respiratory distress HEENT: Head atraumatic,EOMI, pupils reactive, face symmetric, [moist] mucous membranes CARDIOVASCULAR: Regular rate and rhythm without murmurs, rubs or gallops. RESPIRATORY: Decreased breath sounds left side tachypneic, respiratory distress ABDOMEN: Soft, nontender. Normoactive bowel sounds all 4 quadrants. No guarding or rebound. EXTREMITIES: Normal range of motion, no clubbing or edema. Neurovascularly intact NEUROLOGICAL: Alert and oriented x4.Normal gait and speech. Cranial nerves II through XII grossly intact. SKIN: Warm, dry, no laceration, no petechiae, no rashes or lesions. Procedures Chest Tube Chest Tube 1: Chest Tube Location: mid axillary line Size of Tube (cm): 20 Chest Tube Prep: Yes sterile drapes applied and other Local Anesthetic: lidocaine 2% Amount of anesthesia used (mL): 20 Incision Made With: #11 blade Post Procedure: sutured to skin and sterile dressing applied Tube Drainage: none Post Procedure CXR?: Yes Patient Tolerated Procedure: Yes Complications: pain Procedural Sedation Consent signed: No Indication: other (tension pneumothorax) IV Propofol dose (mg): 35 Intraservice time/total sedation time (min): 10 ED Sedation Level: Minimal Patient Tolerated Procedure: Well Complications: none Course Orders Ordered: ED Orders 01/13/21 08:50 COVID19 -Nasal swab/Pre-Proc Stat 01/13/21 08:55 Arterial Blood Gas Stat Complete Blood Count AUTO DIFF Stat Comprehensive Metabolic Panel Stat Lactate (Lactic Acid) Stat Magnesium Stat NT-proBNP (BNP-Adult 18+) Stat Partial Thromboplastin Time Stat Procalcitonin Stat Prothrombin Time INR Stat Troponin & CK Cardiac Panel Stat 01/13/21 08:56 Consult to Respiratory Therapy Evaluate & Treat EKG-12 Lead Stat 01/13/21 08:58 XR chest 1V Stat 01/13/21 09:13 Blood Culture Stat 01/13/21 09:17 COVID19 - ADMIT (CLINICAL DOCUMENTATION NURSE swab/PCR) Stat 01/13/21 09:42 Chest [XR chest 1V] Stat Discontinued Medications Acetaminophen (Acetaminophen 325 Mg Tablet) 975 mg PO NOW ONE Stop: 01/13/21 10:57 Last Admin: 01/13/21 10:59 Dose: 975 mg Documented by: AC Albuterol (Albuterol 2.5 Mg/3 Ml Neb (Adult)) 20 mg INH NOW ONE Stop: 01/13/21 10:29 Last Admin: 01/13/21 09:40 Dose: 20 mg Documented by: DIA Albuterol/Ipratropium (Albuterol/Ipratropium 3 Ml Ampul) 3 ml INH NOW ONE Stop: 01/13/21 08:56 Last Admin: 01/13/21 09:05 Dose: 3 ml Documented by: DANITZA Methylprednisolone (Methylprednisolone 125 Mg/2 Ml Vial) 125 mg IV NOW ONE Stop: 01/13/21 08:56 Last Admin: 01/13/21 09:05 Dose: 125 mg Documented by: DANITZA Morphine Sulfate (Morphine 2 Mg/Ml Inj) 2 mg IV NOW ONE Stop: 01/13/21 10:02 Last Admin: 01/13/21 10:09 Dose: 2 mg Documented by: AC Morphine Sulfate (Morphine 2 Mg/Ml Inj) 2 mg IV NOW ONE Stop: 01/13/21 10:56 Last Admin: 01/13/21 10:59 Dose: 2 mg Documented by: AC Propofol (Propofol 200 Mg/20 Ml Vial) 35 mg IV NOW ONE Stop: 01/13/21 10:02 Last Admin: 01/13/21 09:40 Dose: 35 mg Documented by: AC Vital Signs Vital signs: Vital Signs - 8 hr 01/13/21 08:38 01/13/21 08:45 01/13/21 08:58 Temperature 97.3 F L Pulse Rate 97 H 98 H Respiratory Rate 38 H 33 H 37 H Blood Pressure 143/84 H Pulse Oximetry 76 L 64 L 76 L 01/13/21 09:00 01/13/21 09:05 01/13/21 09:10 Temperature Pulse Rate 96 H 96 H 96 H Respiratory Rate 34 H 36 H 36 H Blood Pressure Pulse Oximetry 78 L 78 L 78 L 01/13/21 09:15 01/13/21 09:20 01/13/21 09:25 Temperature Pulse Rate 95 H 96 H 92 H Respiratory Rate 30 H 38 H 33 H Blood Pressure 129/78 131/65 104/70 Pulse Oximetry 80 L 83 L 83 L 01/13/21 09:30 01/13/21 09:36 01/13/21 09:40 Temperature Pulse Rate 99 H 98 H 85 Respiratory Rate 42 H 41 H 32 H Blood Pressure 146/84 H 148/67 H Pulse Oximetry 75 L 82 L 92 01/13/21 09:41 01/13/21 09:50 01/13/21 09:55 Temperature Pulse Rate 85 80 78 Respiratory Rate 36 H 35 H 36 H Blood Pressure 128/82 103/56 L 100/57 L Pulse Oximetry 91 92 92 01/13/21 10:00 01/13/21 10:06 01/13/21 10:10 Temperature Pulse Rate 74 81 75 Respiratory Rate 30 H 32 H 34 H Blood Pressure 94/52 L 110/61 108/59 L Pulse Oximetry 93 88 L 91 01/13/21 10:16 01/13/21 10:20 01/13/21 10:25 Temperature Pulse Rate 73 75 75 Respiratory Rate 26 H 21 26 H Blood Pressure 93/62 101/61 104/61 Pulse Oximetry 89 L 97 87 L MDM - SOB/Dyspnea Lab Data Result diagrams: 01/13/21 08:55 01/13/21 08:55 Labs: Lab Results 01/13/21 01/13/21 01/13/21 Range/Units 08:50 08:55 08:55 WBC (4.5-11.0) X10^3/uL RBC (4.5-5.9) X10^6/uL Hgb (13.5-17.5) g/dL Hct (41-53) % MCV (80-100) fL MCH (26-34) PG MCHC (30-36) % RDW (11.6-14.8) % Plt Count (150-400) X10^3/uL Neut % (Auto) (50-75) % Lymph % (Auto) (25-40) % Baldwin % (Auto) (3-14) % Eos % (Auto) (2-4) % Baso % (Auto) (0-2) % Neut # (Auto) (3230-2716) /uL Lymph # (Auto) (9592-7965) /uL Baldwin # (Auto) (0-900) /uL Eos # (Auto) (0-450) /uL Baso # (Auto) (0-100) /uL PT 17.1 H (10.1-12.7) SECONDS INR 1.5 H (0.9-1.3) APTT 37 H D (26.4-36.2) SECONDS Sodium (137-145) mmol/L Potassium (3.4-5.1) mmol/L Chloride (98-107) mmol/L Carbon Dioxide (22-32) mmol/L BUN (9-20) mg/dL Creatinine (0.66-1.25) mg/dL Estimated GFR (>60) mL/min BUN/Creatinine Ratio (6-22) Glucose (80-110) mg/dL Lactate (0.7-2.1) mmol/L Calcium (8.4-10.2) mg/dL Magnesium (1.6-2.3) mg/dL Total Bilirubin (0.2-1.3) mg/dL AST (17-59) IU/L ALT (<50) IU/L Alkaline Phosphatase (38-126) U/L Total Creatine Kinase (55-170) U/L CK-MB (CK-2) CK-MB (CK-2) Rel Index Troponin I (0.01-0.034) ng/mL NT-Pro-B Natriuret Pep 775 H (<450) pg/mL Total Protein (6.3-8.2) g/dL Albumin (3.5-5.0) g/dL Globulin (1.7-4.1) g/dL Albumin/Globulin Ratio (1.0-2.8) Procalcitonin 0.05 (<0.5) ng/mL SARS-CoV-2 (PCR) Negative (Negative) 01/13/21 01/13/21 01/13/21 Range/Units 08:55 08:55 08:55 WBC 7.6 (4.5-11.0) X10^3/uL RBC 4.72 (4.5-5.9) X10^6/uL Hgb 14.9 (13.5-17.5) g/dL Hct 46.2 (41-53) % MCV 97.9 (80-100) fL MCH 31.6 (26-34) PG MCHC 32.2 (30-36) % RDW 14.6 (11.6-14.8) % Plt Count 205 (150-400) X10^3/uL Neut % (Auto) 59.2 (50-75) % Lymph % (Auto) 27.4 (25-40) % Baldwin % (Auto) 7.3 (3-14) % Eos % (Auto) 5.2 H (2-4) % Baso % (Auto) 0.9 (0-2) % Neut # (Auto) 4500 (3643-5391) /uL Lymph # (Auto) 2100 (3078-0296) /uL Baldwin # (Auto) 600 (0-900) /uL Eos # (Auto) 400 (0-450) /uL Baso # (Auto) 100 (0-100) /uL PT (10.1-12.7) SECONDS INR (0.9-1.3) APTT (26.4-36.2) SECONDS Sodium (137-145) mmol/L Potassium (3.4-5.1) mmol/L Chloride (98-107) mmol/L Carbon Dioxide (22-32) mmol/L BUN (9-20) mg/dL Creatinine (0.66-1.25) mg/dL Estimated GFR (>60) mL/min BUN/Creatinine Ratio (6-22) Glucose (80-110) mg/dL Lactate 3.2 H (0.7-2.1) mmol/L Calcium (8.4-10.2) mg/dL Magnesium 2.3 (1.6-2.3) mg/dL Total Bilirubin (0.2-1.3) mg/dL AST (17-59) IU/L ALT (<50) IU/L Alkaline Phosphatase (38-126) U/L Total Creatine Kinase 39 L (55-170) U/L CK-MB (CK-2) TNP CK-MB (CK-2) Rel Index TNP Troponin I < 0.012 (0.01-0.034) ng/mL NT-Pro-B Natriuret Pep (<450) pg/mL Total Protein (6.3-8.2) g/dL Albumin (3.5-5.0) g/dL Globulin (1.7-4.1) g/dL Albumin/Globulin Ratio (1.0-2.8) Procalcitonin (<0.5) ng/mL SARS-CoV-2 (PCR) (Negative) 01/13/21 01/13/21 Range/Units 08:55 09:17 WBC (4.5-11.0) X10^3/uL RBC (4.5-5.9) X10^6/uL Hgb (13.5-17.5) g/dL Hct (41-53) % MCV (80-100) fL MCH (26-34) PG MCHC (30-36) % RDW (11.6-14.8) % Plt Count (150-400) X10^3/uL Neut % (Auto) (50-75) % Lymph % (Auto) (25-40) % Baldwin % (Auto) (3-14) % Eos % (Auto) (2-4) % Baso % (Auto) (0-2) % Neut # (Auto) (0564-2390) /uL Lymph # (Auto) (6367-1277) /uL Baldwin # (Auto) (0-900) /uL Eos # (Auto) (0-450) /uL Baso # (Auto) (0-100) /uL PT (10.1-12.7) SECONDS INR (0.9-1.3) APTT (26.4-36.2) SECONDS Sodium 139 (137-145) mmol/L Potassium 4.3 (3.4-5.1) mmol/L Chloride 103 (98-107) mmol/L Carbon Dioxide 25 (22-32) mmol/L BUN 27 H (9-20) mg/dL Creatinine 1.31 H (0.66-1.25) mg/dL Estimated GFR 52.4 L (>60) mL/min BUN/Creatinine Ratio 20.6 (6-22) Glucose 180 H (80-110) mg/dL Lactate (0.7-2.1) mmol/L Calcium 9.3 (8.4-10.2) mg/dL Magnesium (1.6-2.3) mg/dL Total Bilirubin 0.6 (0.2-1.3) mg/dL AST 26 (17-59) IU/L ALT 15 (<50) IU/L Alkaline Phosphatase 103 (38-126) U/L Total Creatine Kinase (55-170) U/L CK-MB (CK-2) CK-MB (CK-2) Rel Index Troponin I (0.01-0.034) ng/mL NT-Pro-B Natriuret Pep (<450) pg/mL Total Protein 7.0 (6.3-8.2) g/dL Albumin 4.0 (3.5-5.0) g/dL Globulin 3.0 (1.7-4.1) g/dL Albumin/Globulin Ratio 1.3 (1.0-2.8) Procalcitonin (<0.5) ng/mL SARS-CoV-2 (PCR) Negative (Negative) ECG Data Interpretation: Normal sinus rhythm rate 98 VA interval 128 QRS [address] changes MDM Narrative Medical decision making narrative: Patient overall appears well with low O2. He was placed on high-flow nasal cannula initially he was given 1 albuterol it did seem to improve however O2 still remained at 80%. Patient was briefly placed on BiPAP for under 5 minute. Then x-ray did revealed large left-sided pneumothorax with tension. BiPAP was stopped and was placed on high-flow oxygen. Immediate attempted needle decompress the left side between 2nd and 3rd rib which was not successful, following an emergent thoracostomy tube. Thoracostomy tube was a little tricky was only able to put in of very small tube. patient had immediate improvement with the thoracostomy tube. O2 went up into the 90s but he was still on non-rebreather. Patient has multiple chronic lung issues on 4 L of O2 at baseline. Status post thoracostomy tube he is still requiring non-rebreather he was changed to high- flow nasal cannula. He overall appears much better than he did previously. He is requiring some pain medication. 10am Dr. Medellin surgery updated patient's symptoms test results and agrees wi th admission however would prefer to be consulted and admitted to Medicine 1020-Dr. Coombs updated on patient's symptoms test results agrees with admission Critical Care Time Critical Care Time Critical Care Time: Yes Total Critical Care Time: 45 Attestation: The high probability of a clinically significant, sudden or life threatening deterioration of the pulmonary system(s) required my full and direct attention, intervention and personal management. The aggregate critical care time was [45] minutes. This time is in addition to time spent performing reported procedures but includes the following: [x] Data Review and interpretation [x] Patient assessment and monitoring of vital signs [x] Documentation [x] Medication orders and management Discharge Plan Departure Patient Disposition: Admitted As Inpatient Clinical Impression: Pneumothorax, spontaneous, tension Admit Date/Time: 01/13/21 10:28
[2021-01-13] MEDS: methylPREDNISolone 125 MG/2 ML VIAL IV (09:05)
[2021-01-13] MEDS: ALBUTEROL/IPRATROPIUM 3 ML AMPUL INH ×2 (09:05→19:13)
[2021-01-13 09:07] LABS: Add Manual Diff / Slide Review NO; Basophils Absolute Auto 100 /uL (0-100); Basophils Percent Auto 0.9 % (0-2); Eosinophils Absolute Auto 400 /uL (0-450); Eosinophils Percent Auto 5.2 % (2-4); Hematocrit 46.2 % (41-53); Hemoglobin 14.9 g/dL (13.5-17.5); Lymphocytes Absolute Auto 2100 /uL (1100-4500); Lymphocytes Percent Auto 27.4 % (25-40); Mean Corpuscular HGB Conc 32.2 % (30-36); Mean Corpuscular Hemoglobin 31.6 PG (26-34); Mean Corpuscular Volume 97.9 fL (80-100); Monocytes Absolute Auto 600 /uL (0-900); Monocytes Percent Auto 7.3 % (3-14); Neutrophils Absolute Auto 4500 /uL (1500-7000); Neutrophils Percent Auto 59.2 % (50-75); Platelet Count 205 X10^3/uL (150-400); Red Blood Cell Count 4.72 X10^6/uL (4.5-5.9); Red Cell Distribution Width 14.6 % (11.6-14.8); White Blood Cell Count 7.6 X10^3/uL (4.5-11.0)
[2021-01-13 09:11] LABS: COVID19 -Nasal RAPID Negative (Negative)
[2021-01-13 09:35] LABS: INR 1.5 (0.9-1.3); Prothrombin Time 17.1 SECONDS (10.1-12.7)
[2021-01-13 09:38] LABS: PTT Partial Thromboplastin Tim 37 SECONDS (26.4-36.2)
[2021-01-13] MEDS: LIDOCAINE 2% INJ MDV 20 ML (09:38)
[2021-01-13 09:39] LABS: Creatine Kinase 39 U/L (55-170); Lactate (Lactic Acid) 3.2 mmol/L (0.7-2.1); Magnesium 2.3 mg/dL (1.6-2.3)
[2021-01-13 09:40] LABS: Alanine Aminotransferase 15 IU/L (<50); Albumin Globulin Ratio 1.3 (1.0-2.8); Alkaline Phosphatase 103 U/L (38-126); Aspartate Aminotransferase 26 IU/L (17-59); BUN Creatinine Ratio 20.6 (6-22); Bilirubin Total 0.6 mg/dL (0.2-1.3); Blood Urea Nitrogen 27 mg/dL (9-20); Calcium 9.3 mg/dL (8.4-10.2); Carbon Dioxide 25 mmol/L (22-32); Chloride 103 mmol/L (98-107); Estimated Glomerular Filt Rate 52.4 mL/min (>60); Glucose 180 mg/dL (80-110); HEMOLYSIS < 15 (0-50); Potassium 4.3 mmol/L (3.4-5.1); Sodium 139 mmol/L (137-145)
[2021-01-13] MEDS: propofoL 200 MG/20 ML VIAL 35 MG IV (09:40)
[2021-01-13] MEDS: ALBUTEROL 2.5 MG/3 ML NEB (ADULT) 20 MG INH (09:40)
--- NOTE | 2021-01-13 09:42 | DI.RAD.S_ITS ---
PROCEDURE: XR CHEST 1V INDICATIONS: post chest tube insertion TECHNIQUE: One view of the chest was acquired. COMPARISON: [facility], , XR CHEST 1V, 01/13/2021, 8:59. FINDINGS: Surgical changes and devices: There is a chest tube on the left side projecting to the left base. Lungs and pleura: Large pneumothorax has significantly decreased in size. There is a small residual left apical pneumothorax. Bilateral interstitial and airspace infiltrates. Small pleural effusions are likely present. No pneumothorax. Mediastinum: Mediastinal contours appear normal. Heart size is mildly increased. Bones and chest wall: No suspicious bony lesions. Overlying soft tissues appear unremarkable. IMPRESSION: 1. Placement of thoracostomy on the left. Pneumothorax has significantly decreased. A small residual left apical pneumothorax is present. 2. Bilateral interstitial and airspace infiltrates consistent with pneumonia. 3. Mild cardiomegaly. Cannot rule out mild superimposed CHF. 4. Small pleural effusions bilaterally. Dictated by: Yovany Bear M.D. on 01/13/2021 at 10:21 Approved by: Yovany Bear M.D. on 01/13/2021 at 10:24
[2021-01-13 09:49] LABS: NT-proBNP (BNP-Adult 18+) 775 pg/mL (<450)
[2021-01-13 09:52] LABS: Troponin I < 0.012 ng/mL (0.01-0.034)
[2021-01-13 09:57] LABS: Procalcitonin 0.05 ng/mL (<0.5)
[2021-01-13] MEDS: MORPHINE 2 MG/ML INJ IV ×2 (10:09→10:59)
--- NOTE | 2021-01-13 10:23 | RT ---
At bedside for chest tube placement, pt jossie well and on 100% fio2 nrb mask. Bag mask unit with suction on and functional, sob relieved post chest tube
--- NOTE | 2021-01-13 10:26 | RT ---
Cont Alb neb tx 20mg over 1 hour started. neb tx stopped [address] Shaffer
[2021-01-13 10:34] LABS: COVID19 - ADMIT (NP swab/PCR) Negative (Negative)
[2021-01-13] MEDS: ACETAMINOPHEN 325 MG TABLET 975 MG PO (10:59)
[2021-01-13 11:01] LABS: Reflexed Lactate in 2 Hours Y
--- NOTE | 2021-01-13 11:08 | PC.NURSE ---
patient came into the ED today with severe SOB and tachypnea. He has a known condition of Chronic Thromboembolic Pulmonary Hypertension that was diagnosed two weeks ago. He stated that he woke up feeling short of breathe. Upon arrival he was placed on hi flow NC. He was given a chest X-ray at He also has a known history of COPD an is on o2 4l NC.
[2021-01-13 12:35] LABS: Lactate 2HR (Lactic Acid Rflx) 1.4 mmol/L (0.7-2.1)
--- NOTE | 2021-01-13 13:22 | P.HP_ITS ---
History of Present Illness History of Present Illness Date Patient Seen: 01/13/21 Time Patient Seen: 13:22 Chief complaint: SOB Narrative: This is an 80-year-old male with a past medical history of COPD/idiopathic pulmonary fibrosis with chronic hypoxic respiratory failure and gout. He has a recent history of bilateral pulmonary embolism and lymphadenopathy for which he underwent biopsies which were considered benign. He had a recent right heart catheterization and lung angiogram per outpatient review, probably due to pulmonary hypertension. I do not have available records at this time but suspect that this was in part due to pulmonary hypertension probably from his bilateral pulmonary emboli. He was in his usual state of health until he woke up this morning with left-sided chest pain and worsening shortness of breath. He was initially hypoxic in the 60s to 70son 4L. Chest x- ray in the emergency room showed a tension pneumothorax. Initial needle decompression was unsuccessful in a chest tube was placed. Shortly after chest tube there was re-expansion of his pneumothorax and the patient's hypoxia improved somewhat. However, he is currently requiring heated high-flow in order to maintain oxygen saturations above 90%, though he is currently weaning down at this time. Laboratory evaluation showed an unremarkable CBC, INR was slightly elevated at 1.5, but otherwise unremarkable coagulation studies. Chemistries revealed a creatinine of 1.31, with an apparent baseline of 1.0 with no significant electrolyte abnormalities. His glucose was 180. Troponin was negative. ProBNP was 775. Procalcitonin was 0.05. His initial chest x-ray did show a tension pneumothorax. With re-expansion there does appear to be some possible vascular congestion. An echocardiogram from May at [facility] for his PE showed an EF of 55- 60% with moderate to severe pulmonary hypertension. Patient History Medical History Durán's esophagus Constipation COPD (chronic obstructive pulmonary disease) Edema Emphysema of lung Former smoker GERD (gastroesophageal reflux disease) Gout Hard of hearing Hyperglycemia Impaired vision Prostate enlargement Pulmonary embolism, bilateral Raynaud phenomenon Right upper lobe pulmonary nodule Sleep apnea with use of continuous positive airway pressure (CPAP) Surgical History H/O knee surgery Family & Social History Family History Father Heart disease Brother COPD (chronic obstructive pulmonary disease) Social History: household members spouse Prior Living Arrangements House Safety & Behavioral: Feels Safe in Current Yes Environment Been Physically Hurt or No Threatened By a Person Suicidal Ideation Description None Suicide Plan Description No Plan Tobacco & Substance use: Tobacco type cigarettes Smoking Status Former smoker alcohol intake never alcohol intake frequency holiday/special occasion Substance Use Type does not use Meds Home Medications and Allergies Home Medications Medication Instructions Recorded Confirmed Type albuterol sulfate 90 mcg/actuation 2 puff INHALATION Q4H PRN 04/25/19 01/13/21 History aerosol inhaler (ProAir HFA) omeprazole 20 mg capsule,delayed 20 mg PO BID #180 cap 08/03/20 01/13/21 Rx release allopurinol 100 mg tablet See Rx Instructions .ROUTE 09/26/20 01/13/21 Rx .COMPLEX #90 tab colchicine 0.6 mg tablet 1.2 mg PO DAILY PRN #30 tab 11/06/20 01/13/21 Rx apixaban 5 mg tablet (Eliquis) 5 mg PO BID #180 tab 11/30/20 01/13/21 Rx tiotropium bromide 2.5 2 puff INHALATION DAILY #4 g 12/06/20 01/13/21 Rx mcg/actuation mist for inhalation (Spiriva Respimat) torsemide 10 mg tablet 10 mg PO DAILY 01/13/21 01/13/21 History Allergies Allergy/AdvReac Type Severity Reaction Status Date / Time No Known Drug Allergies Allergy Verified 01/13/21 10:31 Review of Systems Review of Systems Narrative: All other systems reviewed with the patient and are negative unless otherwise stated. Exam Vital Signs (past 8 hours): - 01/13/21 08:38 01/13/21 08:45 01/13/21 08:58 Temperature 97.3 F L Pulse Rate 97 H 98 H Respiratory Rate 38 H 33 H 37 H Blood Pressure 143/84 H Pulse Oximetry 76 L 64 L 76 L 01/13/21 09:00 01/13/21 09:05 01/13/21 09:10 Temperature Pulse Rate 96 H 96 H 96 H Respiratory Rate 34 H 36 H 36 H Blood Pressure Pulse Oximetry 78 L 78 L 78 L 01/13/21 09:15 01/13/21 09:20 01/13/21 09:25 Temperature Pulse Rate 95 H 96 H 92 H Respiratory Rate 30 H 38 H 33 H Blood Pressure 129/78 131/65 104/70 Pulse Oximetry 80 L 83 L 83 L 01/13/21 09:30 01/13/21 09:36 01/13/21 09:40 Temperature Pulse Rate 99 H 98 H 85 Respiratory Rate 42 H 41 H 32 H Blood Pressure 146/84 H 148/67 H Pulse Oximetry 75 L 82 L 92 01/13/21 09:41 01/13/21 09:50 01/13/21 09:55 Temperature Pulse Rate 85 80 78 Respiratory Rate 36 H 35 H 36 H Blood Pressure 128/82 103/56 L 100/57 L Pulse Oximetry 91 92 92 01/13/21 10:00 01/13/21 10:06 01/13/21 10:10 Temperature Pulse Rate 74 81 75 Respiratory Rate 30 H 32 H 34 H Blood Pressure 94/52 L 110/61 108/59 L Pulse Oximetry 93 88 L 91 01/13/21 10:16 01/13/21 10:20 01/13/21 10:25 Temperature Pulse Rate 73 75 75 Respiratory Rate 26 H 21 26 H Blood Pressure 93/62 101/61 104/61 Pulse Oximetry 89 L 97 87 L 01/13/21 10:30 01/13/21 10:35 01/13/21 10:40 Temperature Pulse Rate 74 74 73 Respiratory Rate 23 26 H 23 Blood Pressure 131/65 103/62 104/58 L Pulse Oximetry 94 94 87 L 01/13/21 10:45 01/13/21 10:50 01/13/21 10:55 Temperature Pulse Rate 72 73 75 Respiratory Rate 13 20 22 Blood Pressure 106/59 L 106/59 L 105/58 L Pulse Oximetry 95 95 94 01/13/21 10:57 01/13/21 11:00 01/13/21 11:06 Temperature Pulse Rate 74 71 82 Respiratory Rate 26 H 25 H 32 H Blood Pressure 106/60 134/58 L Pulse Oximetry 93 82 L 01/13/21 11:10 01/13/21 11:16 01/13/21 11:20 Temperature Pulse Rate 83 78 75 Respiratory Rate 26 H 27 H 24 Blood Pressure 117/58 L 120/69 112/58 L Pulse Oximetry 77 L 93 93 01/13/21 11:25 01/13/21 11:30 01/13/21 11:35 Temperature Pulse Rate 73 73 70 Respiratory Rate 23 33 H 33 H Blood Pressure 107/59 L 107/60 103/57 L Pulse Oximetry 97 96 96 01/13/21 11:40 01/13/21 11:45 01/13/21 11:50 Temperature Pulse Rate 69 71 68 Respiratory Rate 19 21 19 Blood Pressure 106/58 L 109/63 107/61 Pulse Oximetry 96 96 97 01/13/21 12:44 01/13/21 12:45 01/13/21 12:47 Temperature 97.4 F L Pulse Rate 78 72 Respiratory Rate 15 24 Blood Pressure 117/69 Pulse Oximetry 96 96 95 01/13/21 13:00 01/13/21 13:10 Temperature Pulse Rate Respiratory Rate Blood Pressure Pulse Oximetry 94 92 Fraction of Inspired Oxygen 78 Oxygen Delivery Method Heated High Flow Oxygen Flow Rate 30 Narrative Exam Narrative: GENERAL APPEARANCE: Chronically ill-appearing male in no acute distress, he does appear well nourished SKIN: Inspection of the skin reveals no rashes, ulcerations or petechiae. HEENT: Normocephalic atraumatic, extraocular muscles are intact, oropharynx is clear and mucous membranes are moist, neck is supple without adenopathy NECK: Supple and symmetric. There was no thyroid enlargement, and no tenderness, or masses were felt. CHEST: Normal AP diameter and normal contour without any kyphoscoliosis. Left- sided chest tube in place with serosanguineous drainage. There is no air leak. Currently to suction. LUNGS: Auscultation of the lungs revealed bibasilar crackles but no wheezing. CARDIOVASCULAR: There was a regular rate and rhythm without any murmurs, gallops, rubs. Peripheral pulses were 2+ and symmetric. ABDOMEN: Soft and nontender with normal bowel sounds. No ascites was noted. MUSCULOSKELETAL: There was no tenderness or effusions noted. Muscle strength and tone were normal. EXTREMITIES: No cyanosis, clubbing or edema. NEUROLOGIC: Alert and oriented x 3. Normal affect. Strength is +5/5 in the Upper Extremities and Lower Extremities Bilaterally. Sensation to touch was normal. Objective Labs Result Diagrams: 01/13/21 08:55 01/13/21 08:55 Labs: Laboratory Results - last 24 hr 01/13/21 01/13/21 01/13/21 08:50 08:55 08:55 WBC RBC Hgb Hct MCV MCH MCHC RDW Plt Count Neut % (Auto) Lymph % (Auto) [place] % (Auto) Eos % (Auto) Baso % (Auto) Neut # (Auto) Lymph # (Auto) [place] # (Auto) Eos # (Auto) Baso # (Auto) PT 17.1 H INR 1.5 H APTT 37 H D Sodium Potassium Chloride Carbon Dioxide BUN Creatinine Estimated GFR BUN/Creatinine Ratio Glucose Lactate Calcium Magnesium Total Bilirubin AST ALT Alkaline Phosphatase Total Creatine Kinase CK-MB (CK-2) CK-MB (CK-2) Rel Index Troponin I NT-Pro-B Natriuret Pep 775 H Total Protein Albumin Globulin Albumin/Globulin Ratio Procalcitonin 0.05 SARS-CoV-2 (PCR) Negative 01/13/21 01/13/21 01/13/21 08:55 08:55 08:55 WBC 7.6 RBC 4.72 Hgb 14.9 Hct 46.2 MCV 97.9 MCH 31.6 MCHC 32.2 RDW 14.6 Plt Count 205 Neut % (Auto) 59.2 Lymph % (Auto) 27.4 [place] % (Auto) 7.3 Eos % (Auto) 5.2 H Baso % (Auto) 0.9 Neut # (Auto) 4500 Lymph # (Auto) 2100 [place] # (Auto) 600 Eos # (Auto) 400 Baso # (Auto) 100 PT INR APTT Sodium Potassium Chloride Carbon Dioxide BUN Creatinine Estimated GFR BUN/Creatinine Ratio Glucose Lactate 3.2 H Calcium Magnesium 2.3 Total Bilirubin AST ALT Alkaline Phosphatase Total Creatine Kinase 39 L CK-MB (CK-2) TNP CK-MB (CK-2) Rel Index TNP Troponin I < 0.012 NT-Pro-B Natriuret Pep Total Protein Albumin Globulin Albumin/Globulin Ratio Procalcitonin SARS-CoV-2 (PCR) 01/13/21 01/13/21 01/13/21 08:55 09:17 11:30 WBC RBC Hgb Hct MCV MCH MCHC RDW Plt Count Neut % (Auto) Lymph % (Auto) [place] % (Auto) Eos % (Auto) Baso % (Auto) Neut # (Auto) Lymph # (Auto) [place] # (Auto) Eos # (Auto) Baso # (Auto) PT INR APTT Sodium 139 Potassium 4.3 Chloride 103 Carbon Dioxide 25 BUN 27 H Creatinine 1.31 H Estimated GFR 52.4 L BUN/Creatinine Ratio 20.6 Glucose 180 H Lactate 1.4 Calcium 9.3 Magnesium Total Bilirubin 0.6 AST 26 ALT 15 Alkaline Phosphatase 103 Total Creatine Kinase CK-MB (CK-2) CK-MB (CK-2) Rel Index Troponin I NT-Pro-B Natriuret Pep Total Protein 7.0 Albumin 4.0 Globulin 3.0 Albumin/Globulin Ratio 1.3 Procalcitonin SARS-CoV-2 (PCR) Negative Assessment & Plan Assessment & Plan narrative: This is an 80-year-old male with a past medical history of COPD/idiopathic pulmonary fibrosis, and gout who was admitted with acute on chronic hypoxic respiratory failure secondary to tension pneumothorax. 1. Acute on chronic hypoxemic respiratory failure secondary to L tension pneumothorax with possible acute heart failure. - Chest tube placed in the ER with re-expansion and improved respiratory status. - given steroids in the ER, no indication for recent exacerbation, will hold on further steroids - Continue to wean supplemental oxygen, usually on 4 L at home. Currently on heated high flow. - Dr. Medellin of general surgery to manage chest tube. - Last TTE appears to be from 05/2020 which showed EF 55-60% Mod-severe pulmonary hypertension. Underwent pulmonary arteriography on 01/10 to assess suitability for surgery according to documentation. Showed chronic thromboembolic disease bilaterally. Right sided access appears to have been obtained at that time. It is unclear if potential surgery is expected as a result of this study. - try diuresis with 20mg tonight, limited by Blood pressure currently. - continue home medications, replace with formulary where necessary - will check an echo. 2. history of bilateral PE, COPD - continue apixaban - does not appear to be in COPD exacerbation 3. History of gout - no flare symptoms. - continue allopurinol 4. possible acute heart failure, diastolic - will check TTE, see if diuresis improves hypoxia as noted above. was recently started on torsemide as an outpatient for LE edema. May be evidence of ? R heart disease given pulmonary HTN. Watch for re-expansion pulmonary edema as well. Code: Full, surrogate is patient's spouse Dispo: Admit as inpatient as his stay is expected to exceed 2 midnights DVT: On apixaban I have utilized all available immediate resources to obtain, update, or review the patient's current medications. COVID-19 COVID-19 status: Negative Time Spent With Patient Critical Care time: I spent a total of [] minutes of critical care time on this patient's care today; this time is exclusive of procedural time. Quality VTE Deep Vein Thrombosis/Pulmonary Embolism Present on Admission: No MIPS - Admit I confirm the patient?s Advance Care Plan is present, Code status is documented, Surrogate decision maker is in patient?s record [If Yes, STOP here]: Yes
--- NOTE | 2021-01-13 13:52 | RT ---
Fio2 found on 65%, RN changed and pt sao2@92%.
--- NOTE | 2021-01-13 13:59 | PC.NURSE ---
1245- Pt arrived to rm 226 on NRB. SPO2 96%. SR 80s. AO x4. Transferred from stretcher to bed via slider board. Left chest wall chest tube to suction. +1 air leak with coughing noted to drainage device. Pt denies pain. Reports improvement ease of breathing after chest tube insertion. RT placed pt on HHFNC 30L and 83%. SPO2 remains high 90s%. Clarified orders for sat goal with hospitalist who states goal is for SPO2 greater than 89%. Pt utilizes 4L NC at home with resting SPO2 90% and desats to 80s% with activity. 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 Weaning FIO2 as able. Pt also reports he was previously using a cpap HS but has been unable to do so because his machine was recalled. Notified RT of this. Educated pt to use of I/S. Pt provides return demo. Call light in reach.
[2021-01-13] MEDS: ALBUTEROL 2.5 MG/3 ML NEB (ADULT) INH (15:31)
--- NOTE | 2021-01-13 17:07 | DI.ECHO.S_ITS ---
[facility]---------+ [facility] +---------+ : : [address] : [address] : : : : [id number] : : : : Phone: [phone] Echocardiogram Report + + :Name: ADE CHAU Study Date: 01/14/2021 Height: 69 in : :[facility] ReadingLocation: Weight: 154 lb : : Gender: Male BSA: 1.8 m2 : :: 1940 Age: 80 yrs BP: 108/63 mmHg: :Reason For Study: CTEPH, shortness of breath, acute resp. : :failure : :Ordering Physician: JOLENE, : :JOAQUIN SAHU Performed By: Alpa Knutson : :Referring: JOAQUIN FERNÁNDEZ : + + Interpretation Summary The study quality was technically limited. The apical views were not obtained due to due to chest tube.. Normal left ventricle size with ejection fraction 60-65%. Dilated right ventricle and right atria. Mild mitral regurgitation. Moderate to severe tricuspid regurgitation. The right ventricular systolic pressure is estimated to be at least 86 mmHg based on an estimated right atrial pressure of 8 mm Hg. Severe pulmonary hypertension. Comparison is made with the echocardiogram of 06/25/2020, pulmonary hypertension has worsen. Procedure: A two-dimensional transthoracic echocardiogram with color flow and Doppler was performed. The study quality was technically limited. The apical views were not obtained due to due to chest tube.. Comparison is made with the echocardiogram of 06/25/2020. The patient was in sinus rhythm with heart rates between 74-80 bpm during the exam. Left Ventricle: The left ventricle is normal in size and wall thickness. The ejection fraction is estimated to be 60-65%. There are no obvious focal wall motion abnormalities noted but poor endocardial definition reduces the sensitivity for the detection of such. Right Ventricle: The right ventricle is not well visualized. Atria: The left atrial size is normal. Right atrium not well visualized. Mitral Valve: The mitral valve leaflets appear normal. There is no evidence of stenosis, fluttering, or prolapse. There is mild mitral regurgitation. Aortic Valve: The aortic valve opens well. Tricuspid Valve: The tricuspid valve leaflets are thickened and/or calcified, but open well. There is moderate to severe tricuspid regurgitation. The right ventricular systolic pressure is estimated to be at least 86 mmHg based on an estimated right atrial pressure of 8 mm Hg. There is severe pulmonary hypertension. Pulmonic Valve: The pulmonic valve is not well seen, but is grossly normal. There is a trace or physiologic amount of pulmonic regurgitation. Great Vessels: The aortic root is normal size. The ascending aorta could not be visualized. The IVC is of normal diameter and collapses less than 50% with a sniff. This suggests a right atrial pressure of 8 mm Hg. Pericardium/ Pleura There is no pericardial effusion. There is no pleural effusion. MMode/2D Measurements & Calculations LVIDd: 5.0 cm LVOT diam: 2.2 cm LVIDs: 3.5 cm Ao root diam: 3.5 cm FS: 29.5 % IVSd: 0.68 cm LVPWd: 0.79 cm LV maria. diameter/BSA (cm/m^2): 2.7 LV sys. diameter/BSA (cm/m^2): 1.9 LA dimension: 2.6 cm RA long axis: 6.3 cm LA A4 area: 23.0 cm2 RA area: 29.2 cm2 LA length (vol): 5.7 cm RA vol: 115.3 ml RA : 62.4 ml/m2 IVC diam: 1.5 cm RVD1 (basal): 5.4 cm TAPSE: 2.0 cm Doppler Measurements & Calculations TR max wayne: 441.1 cm/sec TR max P.8 mmHg PA pr(Accel): 46.5 mmHg Electronically signed by: Manju Todd on Reading Physician:01/14/2021 03:47 PM
[2021-01-13] MEDS: FUROSEMIDE 20 MG/2 ML VIAL IV (17:37)
[2021-01-13] MEDS: OXYCODONE IR 5 MG TABLET PO ×2 (17:41→23:56)
--- NOTE | 2021-01-13 20:01 | PC.NURSE ---
Addendum entered by Nova Rodriguez R.N. 01/13/21 22:04: Pt was able to urinate 300+ after bladder scan. Original Note: Report received, care assumed 1530. VSS. Pt on HHF 30 liters, 50%, saturating mid to high 90's. Denies SOB. C/o pain 2/10 at chest tube site, tolerating well. Chest tube site intact, no crepitus, serosanguinous output in tube. Pain increased to 5/10. Oxycodone given. Pt. encouraged to breathe deeply, splint with pillow at chest tube site, and use IS. Attempted to void twice. Minimal output (~25cc) both times. Pt reports he sometimes has difficulty voiding, likely related to BPH, but not usually this much trouble. Bladder scan demonstrates 688 ml.
[2021-01-13] MEDS: APIXABAN 5 MG TABLET PO (21:10)
[2021-01-13] MEDS: ONDANSETRON 4 MG/2 ML INJ IV (23:57)
[2021-01-14] VITALS (36 sets, daily range): BP systolic 108–139; BP diastolic 63–73; PULSE 71–105; RESP 13–30; TEMP 35.9–36.7; O2SAT 82–100
--- NOTE | 2021-01-14 00:23 | PC.NURSE ---
2345 01/13/21 Patient splinting in bed, reports pain on L lateral chest. Chest tube leaking and tidaling. Crepitus heard L lower lobe, lateral and posterior. System integrity confirmed and maintained at 20 cm H2O. Pain addressed with Oxycodone 5mg and Zofran. Patient reports improvement. 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
[2021-01-14 05:17] LABS: Add Manual Diff / Slide Review NO; Basophils Absolute Auto 0 /uL (0-100); Basophils Percent Auto 0.4 % (0-2); Eosinophils Absolute Auto 0 /uL (0-450); Eosinophils Percent Auto 0.1 % (2-4); Hematocrit 42.1 % (41-53); Hemoglobin 13.7 g/dL (13.5-17.5); Lymphocytes Absolute Auto 1100 /uL (1100-4500); Lymphocytes Percent Auto 11.7 % (25-40); Mean Corpuscular HGB Conc 32.5 % (30-36); Mean Corpuscular Hemoglobin 31.5 PG (26-34); Mean Corpuscular Volume 96.8 fL (80-100); Monocytes Absolute Auto 800 /uL (0-900); Monocytes Percent Auto 8.8 % (3-14); Neutrophils Absolute Auto 7300 /uL (1500-7000); Platelet Count 186 X10^3/uL (150-400); Red Blood Cell Count 4.35 X10^6/uL (4.5-5.9); Red Cell Distribution Width 14.2 % (11.6-14.8); White Blood Cell Count 9.2 X10^3/uL (4.5-11.0)
[2021-01-14 05:28] LABS: BUN Creatinine Ratio 24.8 (6-22); Blood Urea Nitrogen 26 mg/dL (9-20); Calcium 9.3 mg/dL (8.4-10.2); Carbon Dioxide 30 mmol/L (22-32); Chloride 102 mmol/L (98-107); Estimated Glomerular Filt Rate > 60.0 mL/min (>60); Glucose 120 mg/dL (80-110); HEMOLYSIS < 15 (0-50); Magnesium 2.3 mg/dL (1.6-2.3); Potassium 4.7 mmol/L (3.4-5.1); Sodium 137 mmol/L (137-145)
--- NOTE | 2021-01-14 07:09 | DI.RAD.S_ITS ---
PROCEDURE: XR CHEST 1V INDICATIONS: chest tube to water seal TECHNIQUE: One view of the chest was acquired. COMPARISON: [facility], , XR CHEST 1V, 01/13/2021, 9:45. FINDINGS: Surgical changes and devices: Left-sided chest tube is stable.. Lungs and pleura: Small left apical pneumothorax is slightly decreased in size compared to January 13, 2017. Left lung airspace opacities have decreased in size compared to prior examination. Right lung opacities are stable. Mediastinum: Mediastinal contours appear normal. Heart size is normal. Bones and chest wall: No suspicious bony lesions. Overlying soft tissues appear unremarkable. Extensive left chest wall subcutaneous air. IMPRESSION: Left apical pneumothorax slightly decreased in size compared to January 13, 2021. Dictated by: Tasneem Mccann MD, PhD on 01/14/2021 at 13:56 Approved by: Tasneem Mccann MD, PhD on 01/14/2021 at 13:58
[2021-01-14] MEDS: ALBUTEROL/IPRATROPIUM 3 ML AMPUL INH ×3 (07:11→19:43)
[2021-01-14] MEDS: ONDANSETRON 4 MG/2 ML INJ IV (08:09)
[2021-01-14] MEDS: FUROSEMIDE 40 MG/4 ML VIAL IV (09:17)
[2021-01-14] MEDS: ACETAMINOPHEN 325 MG TABLET 975 MG PO (09:17)
[2021-01-14] MEDS: allopurinoL 100 MG TABLET PO (09:17)
[2021-01-14] MEDS: APIXABAN 5 MG TABLET PO ×2 (09:17→21:32)
[2021-01-14] MEDS: polyethylene glycoL 3350 17 GM POWD.PACK PO (09:21)
[2021-01-14] MEDS: TRAMADOL 50 MG TABLET PO (12:02)
--- NOTE | 2021-01-14 12:37 | P.PN_ITS ---
Subjective Subjective Date Patient Seen: 01/14/21 Time Patient Seen: 12:37 Interval history: 80 M admitted with tension pneumothorax, improved with chest tube. Still on heated high flow, but improving. TTE pending today. chest tube management per surgery. Patient with left chest pain near tube site, some nausea improved with medications. Improved dyspnea. Some cough today. No abdominal pain. Exam Vital Signs (past 8 hours): - 01/14/21 05:00 01/14/21 05:04 01/14/21 05:05 Temperature 97.9 F Pulse Rate 76 77 Respiratory Rate 20 22 Blood Pressure 108/63 108/63 Pulse Oximetry 94 93 01/14/21 05:30 01/14/21 06:00 01/14/21 06:30 Temperature Pulse Rate 75 78 75 Respiratory Rate 17 15 16 Blood Pressure Pulse Oximetry 94 95 97 01/14/21 07:18 01/14/21 07:23 01/14/21 08:00 Temperature Pulse Rate 79 77 Respiratory Rate 20 18 Blood Pressure 108/63 Pulse Oximetry 98 98 94 01/14/21 09:00 Temperature 97.9 F Pulse Rate 72 Respiratory Rate 15 Blood Pressure 117/63 Pulse Oximetry 96 Fraction of Inspired Oxygen 50 Oxygen Delivery Method Heated High Flow Oxygen Flow Rate 30 Narrative Exam Narrative: ENERAL APPEARANCE:? Chronically ill-appearing male in no acute distress, he does appear well nourished SKIN: Inspection of the skin reveals no rashes, ulcerations or petechiae. HEENT:? Normocephalic atraumatic, extraocular muscles are intact, oropharynx is clear and mucous membranes are moist, neck is supple without adenopathy NECK: Supple and symmetric. There was no thyroid enlargement, and no tenderness, or masses were felt. CHEST: Normal AP diameter and normal contour without any kyphoscoliosis.? Left- sided chest tube in place with serosanguineous drainage.? There is no air leak.? Currently to suction. LUNGS: Auscultation of the lungs revealed bibasilar crackles but no wheezing. CARDIOVASCULAR: There was a regular rate and rhythm without any murmurs, gallops, rubs. Peripheral pulses were 2+ and symmetric. ABDOMEN: Soft and nontender with normal bowel sounds. No ascites was noted. MUSCULOSKELETAL: There was no tenderness or effusions noted. Muscle strength and tone were normal. EXTREMITIES: No cyanosis, clubbing or edema. NEUROLOGIC: Alert and oriented x 3. Normal affect. Strength is +5/5 in the Upper Extremities and Lower Extremities Bilaterally. Sensation to touch was normal. Objective Labs Result Diagrams: 01/14/21 04:57 01/14/21 04:57 Labs: Laboratory Results - last 24 hr 01/13/21 01/13/21 01/14/21 11:30 12:56 04:57 WBC 9.2 RBC 4.35 L Hgb 13.7 Hct 42.1 MCV 96.8 MCH 31.5 MCHC 32.5 RDW 14.2 Plt Count 186 Neut % (Auto) 79.0 H Lymph % (Auto) 11.7 L [place] % (Auto) 8.8 Eos % (Auto) 0.1 L Baso % (Auto) 0.4 Neut # (Auto) 7300 H Lymph # (Auto) 1100 [place] # (Auto) 800 Eos # (Auto) 0 Baso # (Auto) 0 Sodium Potassium Chloride Carbon Dioxide BUN Creatinine Estimated GFR BUN/Creatinine Ratio Glucose Lactate 1.4 Calcium Magnesium Nasal Screen MRSA (PCR) Negative for mrsa 01/14/21 04:57 WBC RBC Hgb Hct MCV MCH MCHC RDW Plt Count Neut % (Auto) Lymph % (Auto) [place] % (Auto) Eos % (Auto) Baso % (Auto) Neut # (Auto) Lymph # (Auto) [place] # (Auto) Eos # (Auto) Baso # (Auto) Sodium 137 Potassium 4.7 Chloride 102 Carbon Dioxide 30 BUN 26 H Creatinine 1.05 Estimated GFR > 60.0 BUN/Creatinine Ratio 24.8 H Glucose 120 H Lactate Calcium 9.3 Magnesium 2.3 Nasal Screen MRSA (PCR) [facility] Medical History Durán's esophagus Constipation COPD (chronic obstructive pulmonary disease) Edema Emphysema of lung Former smoker GERD (gastroesophageal reflux disease) Gout Hard of hearing Hyperglycemia Impaired vision Prostate enlargement Pulmonary embolism, bilateral Raynaud phenomenon Right upper lobe pulmonary nodule Sleep apnea with use of continuous positive airway pressure (CPAP) Surgical History H/O knee surgery Family History Father Heart disease Brother COPD (chronic obstructive pulmonary disease) Social History marital status: household members: spouse Smoking Status: Former smoker alcohol intake: never substance use type: does not use Assessment & Plan Assessment & Plan narrative: This is an 80-year-old male with a past medical history of COPD/idiopathic pulmonary fibrosis, and gout who was admitted with acute on chronic hypoxic respiratory failure secondary to tension pneumothorax. 1. Acute on chronic hypoxemic respiratory failure secondary to L tension pneumothorax with possible acute heart failure. - Chest tube placed in the ER with re-expansion and improved respiratory status. ?- given steroids in the ER, no indication for recent exacerbation, will hold on further steroids ?- Continue to wean supplemental oxygen, usually on 4 L at home. Currently on heated high flow. ?- Dr. Medellin of general surgery to manage chest tube. ?-? Last TTE appears to be from 05/2020 which showed EF 55-60% Mod-severe pulmonary hypertension.? Underwent pulmonary arteriography on 01/10 to assess suitability for surgery according to documentation. Showed chronic thromboembolic disease bilaterally. Right sided access appears to have been obtained at that time. It is unclear if potential surgery is expected as a result of this study. ?- continue to trial slow diuresis, 40 mg IV daily pending TTE read. ?- continue home medications, replace with formulary where necessary ?- TTE today pending. 2. history of bilateral PE, COPD ?- continue apixaban ?- does not appear to be in COPD exacerbation 3. History of gout ?- no flare symptoms. ?- continue allopurinol 4. possible acute heart failure, diastolic ?- TTE as above pending, see if diuresis improves hypoxia as noted above. was recently started on torsemide as an outpatient for LE edema. May be evidence of ? R heart disease given pulmonary HTN. Watch for re-expansion pulmonary edema as well. Code: Full, surrogate is patient's spouse Dispo: Admit as inpatient as his stay is expected to exceed 2 midnights DVT:? On apixaban Time Spent With Patient Critical Care time: I spent a total of [] minutes of critical care time on this patient's care today; this time is exclusive of procedural time. Quality VTE Deep Vein Thrombosis/Pulmonary Embolism Present on Admission: No
[2021-01-14] MEDS: CALCIUM CARBONATE 500 MG TAB PO ×2 (16:07→16:22)
--- NOTE | 2021-01-14 16:18 | CM.DANOTE ---
DCP/Assessment: Reviewed chart. Patient is a 80yr old male admitted to [facility] with respiratory failure. Patient with h/o COPD. PCP is Dr. Feliciano. Primary payor is 1)[facility]. Met with patient explained CM/SW role. Patient's spouse/Jenna at bedside. Patient reports that he is completely I at baseline. Patient on home 02 at home for chronic COPD. At this time patient requiring heated high flow 02 and has chest tube. Patient and spouse hopeful that patient will be able to d/c home when medically stable. CM team to continue to follow. P: Home when stable. [facility] Discharge Planning/Care Management CM Discharge Assessment Start: 01/14/21 16:15 Freq: Status: Active Protocol: Document 01/14/21 16:16 [facility] (Rec: 01/14/21 16:18 [facility] [id number]) Discharge Planning Assessment Assigned Factory Supervisor PHILL Samuels Contact Information Jenna (spouse) # [phone] Advance Directives? No History Provided By Patient Prior Living Arrangements House Household Members spouse Independent with ADL's Yes Is patient alert and oriented? Yes Caregiver for Another No Barriers to Discharge No Discharge Plan Home Community Services Oxygen Therapy Transportation Arrangement Spouse to provide transport. Whiteboard Updated in Patient Room with Yes name and ext. # of Factory Supervisor Review Status In Process Next Review Type Continued Stay Review
--- NOTE | 2021-01-14 16:38 | PC.NURSE ---
Addendum entered by Nova Rodriguez R.N. 01/14/21 22:11: Oxygen saturation somewhat labile throughout shift. At this time, HHF 45 lpm, 60% FiO2, pulse ox 88%. Pleurevac appears to have been tipped over at some point. Unable to ascertain shift output. Original Note: SHIFT: Report received, care assumed 1530. Pt A&Ox4. Reports fatigue d/t lack of sleep last night. Discussed pharmaceutical sleep aids. C/o pain /10 at chest tube site, states it is tolerable at this time and not impairing his breathing. HHF 30 lpm, 40% FiO2. Chest tube site intact with some old drainage on dressing; small serosanguinous drainage in tube/canister. No palpable crepitus but left-side crackling and rales on auscultation. Suction to -20 mmHg, no evidence of air leak. Dr. Medellin at bedside. Discussed POC, which is to place chest tube to water seal tomorrow for trial. Pt. verbalizes understanding.
--- NOTE | 2021-01-14 17:36 | PM.CN ---
History of Present Illness Consult details Date Patient Seen: 01/14/21 Time Patient Seen: 17:36 Chief complaint: SOB Reason for consult: left spontaneous PTX Requesting provider: Giovanny Coombs Narrative: Presented with acute SOB and hypoxia. H/o COPD and 4 liter home O2. No trauma. Chest tube placed in ED with good reinflation of the lung. Meds Home Medications and Allergies Home Medications Medication Instructions Recorded Confirmed Type albuterol sulfate 90 mcg/actuation 2 puff INHALATION Q4H PRN 04/25/19 01/13/21 History aerosol inhaler (ProAir HFA) omeprazole 20 mg capsule,delayed 20 mg PO BID #180 cap 08/03/20 01/13/21 Rx release allopurinol 100 mg tablet See Rx Instructions .ROUTE 09/26/20 01/13/21 Rx .COMPLEX #90 tab colchicine 0.6 mg tablet 1.2 mg PO DAILY PRN #30 tab 11/06/20 01/13/21 Rx apixaban 5 mg tablet (Eliquis) 5 mg PO BID #180 tab 11/30/20 01/13/21 Rx tiotropium bromide 2.5 2 puff INHALATION DAILY #4 g 12/06/20 01/13/21 Rx mcg/actuation mist for inhalation (Spiriva Respimat) torsemide 10 mg tablet 10 mg PO DAILY 01/13/21 01/13/21 History Allergies Allergy/AdvReac Type Severity Reaction Status Date / Time No Known Drug Allergies Allergy Verified 01/13/21 10:31 Review of Systems Review of Systems ROS: Yes All systems reviewed with the patient and are negative except as otherwise documented Exam Vital Signs (past 8 hours): - 01/14/21 12:00 01/14/21 13:00 01/14/21 13:50 Temperature 98.1 F Pulse Rate 79 Respiratory Rate 15 Blood Pressure 139/73 Pulse Oximetry 96 98 96 01/14/21 14:32 01/14/21 14:33 01/14/21 17:14 Temperature Pulse Rate 71 71 Respiratory Rate 20 20 Blood Pressure Pulse Oximetry 93 92 Fraction of Inspired Oxygen 40 Oxygen Delivery Method High Flow Nasal Cannula Oxygen Flow Rate 5 Const General: cooperative and frail appearing Nutritional Appearance: thin Orientation: alert and oriented x3 HENMT Head: normocephalic and atraumatic Eyes General: appearance normal, both eyes and all related structures Neck Neck: trachea midline Chest Other: crepitus, thin skin, Left side chest tube secure with no air leak Resp Effort & Inspection: normal respiratory effort and able to speak in complete sentences Cardio Rate: regular rate Rhythm: regular rhythm GI Inspection: normal to inspection Skin General: atrophy, dry skin and ecchymosis Neuro General: patient alert and patient awake Speech: speech normal Psych Appearance: grossly normal Judgment: judgment good Objective Labs Result Diagrams: 01/14/21 04:57 01/14/21 04:57 Labs: Laboratory Results - last 24 hr 01/14/21 01/14/21 04:57 04:57 WBC 9.2 RBC 4.35 L Hgb 13.7 Hct 42.1 MCV 96.8 MCH 31.5 MCHC 32.5 RDW 14.2 Plt Count 186 Neut % (Auto) 79.0 H Lymph % (Auto) 11.7 L [place] % (Auto) 8.8 Eos % (Auto) 0.1 L Baso % (Auto) 0.4 Neut # (Auto) 7300 H Lymph # (Auto) 1100 [place] # (Auto) 800 Eos # (Auto) 0 Baso # (Auto) 0 Sodium 137 Potassium 4.7 Chloride 102 Carbon Dioxide 30 BUN 26 H Creatinine 1.05 Estimated GFR > 60.0 BUN/Creatinine Ratio 24.8 H Glucose 120 H Calcium 9.3 Magnesium 2.3 PFSH Medical History Durán's esophagus Constipation COPD (chronic obstructive pulmonary disease) Edema Emphysema of lung Former smoker GERD (gastroesophageal reflux disease) Gout Hard of hearing Hyperglycemia Impaired vision Prostate enlargement Pulmonary embolism, bilateral Raynaud phenomenon Right upper lobe pulmonary nodule Sleep apnea with use of continuous positive airway pressure (CPAP) Surgical History H/O knee surgery Family History Father Heart disease Brother COPD (chronic obstructive pulmonary disease) Social History marital status: household members: spouse Tobacco & Substance Use Smoking Status: Former smoker alcohol intake: never substance use type: does not use Assessment & Plan Assessment & Plan narrative: Spontaneous left PTX in the face of COPD and home oxygen. Air leak seen earlier in the day. No leak now. CXR reviewed with very small apical pneumo that is small than yesterday. Plan: Water seal in the morning and check CXR to see if tube is ready for removal. COVID-19 COVID-19 status: Negative Time Spent With Patient Time with patient: 30 to 49 minutes with 50% spent counseling/coordinating care Critical Care time: I spent a total of [] minutes of critical care time on this patient's care today; this time is exclusive of procedural time.
[2021-01-14] MEDS: SENNOSIDES 8.6 MG TABLET 17.2 MG PO (21:31)
[2021-01-14] MEDS: MELATONIN 3 MG TABLET 6 MG PO (21:31)
[2021-01-15] VITALS (38 sets, daily range): BP systolic 94–136; BP diastolic 59–73; PULSE 68–102; RESP 11–41; TEMP 36.3–36.8; O2SAT 79–99
[2021-01-15] MEDS: ONDANSETRON 4 MG/2 ML INJ IV ×2 (02:04→12:55)
[2021-01-15] MEDS: OXYCODONE IR 5 MG TABLET PO (02:04)
[2021-01-15 05:17] LABS: Add Manual Diff / Slide Review NO; Basophils Absolute Auto 0 /uL (0-100); Basophils Percent Auto 0.5 % (0-2); Eosinophils Absolute Auto 200 /uL (0-450); Eosinophils Percent Auto 2.2 % (2-4); Hematocrit 43.1 % (41-53); Lymphocytes Absolute Auto 1100 /uL (1100-4500); Lymphocytes Percent Auto 13.7 % (25-40); Mean Corpuscular HGB Conc 32.5 % (30-36); Mean Corpuscular Hemoglobin 31.5 PG (26-34); Mean Corpuscular Volume 96.9 fL (80-100); Monocytes Absolute Auto 600 /uL (0-900); Monocytes Percent Auto 7.7 % (3-14); Neutrophils Absolute Auto 6300 /uL (1500-7000); Neutrophils Percent Auto 75.9 % (50-75); Platelet Count 163 X10^3/uL (150-400); Red Blood Cell Count 4.45 X10^6/uL (4.5-5.9); Red Cell Distribution Width 14.4 % (11.6-14.8); White Blood Cell Count 8.3 X10^3/uL (4.5-11.0)
[2021-01-15 05:28] LABS: Blood Urea Nitrogen 31 mg/dL (9-20); Calcium 9.3 mg/dL (8.4-10.2); Carbon Dioxide 33 mmol/L (22-32); Chloride 100 mmol/L (98-107); Estimated Glomerular Filt Rate > 60.0 mL/min (>60); Glucose 105 mg/dL (80-110); HEMOLYSIS < 15 (0-50); Magnesium 2.4 mg/dL (1.6-2.3); Potassium 4.8 mmol/L (3.4-5.1); Sodium 137 mmol/L (137-145)
--- NOTE | 2021-01-15 07:39 | DI.RAD.S_ITS ---
PROCEDURE: XR CHEST 1V INDICATIONS: f/u pneumothorax TECHNIQUE: One view of the chest was acquired. COMPARISON: [facility], , XR CHEST 1V, 01/14/2021, 7:25. FINDINGS: Surgical changes and devices: Left-sided chest tube is stable. Lungs and pleura: Trace left-sided pneumothorax decreased in size compared to January 14, 2021. Patchy opacities in the lungs bilaterally decreased compared to January 14, 2021. Mediastinum: Mediastinal contours appear normal. Heart is enlarged Bones and chest wall: Extensive left chest wall subcutaneous air. No suspicious bony lesions. Overlying soft tissues appear unremarkable. IMPRESSION: Trace left-sided pneumothorax decreased in size compared to January 14, 2021. Dictated by: Tasneem Mccann MD, PhD on 01/15/2021 at 8:26 Approved by: Tasneem Mccann MD, PhD on 01/15/2021 at 8:28
[2021-01-15] MEDS: FUROSEMIDE 40 MG/4 ML VIAL IV (08:11)
[2021-01-15] MEDS: polyethylene glycoL 3350 17 GM POWD.PACK PO (08:11)
[2021-01-15] MEDS: APIXABAN 5 MG TABLET PO ×2 (08:11→20:40)
[2021-01-15] MEDS: allopurinoL 100 MG TABLET PO (08:11)
[2021-01-15] MEDS: ALBUTEROL/IPRATROPIUM 3 ML AMPUL INH ×4 (08:33→19:06)
[2021-01-15] MEDS: AZITHROMYCIN 500 MG in DEXTROSE 5% IN WATER 250 ML IV (09:26)
[2021-01-15] MEDS: predniSONE 20 MG TABLET 40 MG PO (09:27)
[2021-01-15 09:28] LABS: Procalcitonin 0.06 ng/mL (<0.5)
--- NOTE | 2021-01-15 09:31 | PM.CN.EICU ---
History of Present Illness Consult details Chief complaint: SOB :: This patient was seen via real time interactive two-way audiovisual telecommunication. Narrative: Patient is a 80 year old male with hisotry of COPD, IPF, and chronic hypoxia respiratory failure on 4 liters NC presents on 01/13 with complaints of left sided pleuritic chest pain. CXR showed tension pneumothorax which needle decompression was performed follow by chest tube placement. PNTX improved and patient was placed on HFNC. He remains on HFNC 45/50%. Started on zosyn/azithromycin pending respiratory culture. Chest tube on water seal with trace of left apical PNTX. Upgraded to ICU for further management. [facility] Medical History Durán's esophagus Constipation COPD (chronic obstructive pulmonary disease) Edema Emphysema of lung Former smoker GERD (gastroesophageal reflux disease) Gout Hard of hearing Hyperglycemia Impaired vision Prostate enlargement Pulmonary embolism, bilateral Raynaud phenomenon Right upper lobe pulmonary nodule Sleep apnea with use of continuous positive airway pressure (CPAP) Surgical History H/O knee surgery Family History Father Heart disease Brother COPD (chronic obstructive pulmonary disease) Social History marital status: household members: spouse Smoking Status: Former smoker alcohol intake: never substance use type: does not use Current Medications Current Medications Medications: Home Medications albuterol sulfate 90 mcg/actuation aerosol inhaler (ProAir HFA) 2 puff INHALATION Q4H PRN 04/25/19 [History Confirmed 01/13/21] omeprazole 20 mg capsule,delayed release 20 mg PO BID #180 cap 08/03/20 [Rx Confirmed 01/13/21] allopurinol 100 mg tablet See Rx Instructions .ROUTE .COMPLEX #90 tab 09/26/20 [Rx Confirmed 01/13/21] colchicine 0.6 mg tablet 1.2 mg PO DAILY PRN #30 tab 11/06/20 [Rx Confirmed 01/13/21] apixaban 5 mg tablet (Eliquis) 5 mg PO BID #180 tab 11/30/20 [Rx Confirmed 01/13/21] tiotropium bromide 2.5 mcg/actuation mist for inhalation (Spiriva Respimat) 2 puff INHALATION DAILY #4 g 12/06/20 [Rx Confirmed 01/13/21] torsemide 10 mg tablet 10 mg PO DAILY 01/13/21 [History Confirmed 01/13/21] Visit Medications (administered) Generic Name Dose Route Start Last Admin Trade Name Freq PRN Reason Stop Dose Admin Acetaminophen 975 mg 01/13/21 13:19 01/14/21 09:17 Acetaminophen 325 Mg Tablet PO 975 mg Q8H PRN Administration Fever/Mild Pain (1-3) Albuterol/Ipratropium 3 ml 01/13/21 23:00 01/15/21 08:33 Albuterol/Ipratropium 3 Ml Ampul INH 3 ml [id number] DUYEN Administration Allopurinol 100 mg 01/14/21 09:00 01/15/21 08:11 Allopurinol 100 Mg Tablet PO 100 mg DAILY DUYEN Administration Apixaban 5 mg 01/13/21 21:00 01/15/21 08:11 Apixaban 5 Mg Tablet PO 5 mg BID DUYEN Administration Calcium Carbonate 500 mg 01/14/21 15:12 01/14/21 16:22 Calcium Carbonate 500 Mg Tab PO 500 mg PRN PRN Administration Dyspepsia Azithromycin 500 mg/ Dextrose 250 mls @ 250 mls/hr 01/15/21 10:00 01/15/21 09:26 IV 250 mls/hr Q24H DUYEN Administration Melatonin 6 mg 01/14/21 21:15 01/14/21 21:31 Melatonin 3 Mg Tablet PO 6 mg BEDTIME DUYEN Administration Ondansetron HCl 4 mg 01/14/21 12:21 01/15/21 02:04 Ondansetron 4 Mg/2 Ml Inj IV 4 mg Q4HR PRN Administration Nausea And Vomiting Oxycodone HCl 5 mg 01/13/21 13:19 01/15/21 02:04 Oxycodone Ir 5 Mg Tablet PO 5 mg Q6HR PRN Administration Pain, Moderate (4-6) Polyethylene Glycol 17 gm 01/14/21 09:00 01/15/21 08:11 Polyethylene Glycol 3350 17 Gm Powd.Pack PO 17 gm DAILY DUYEN Administration Prednisone 40 mg 01/15/21 09:00 01/15/21 09:27 Prednisone 20 Mg Tablet PO 40 mg DAILY DUYEN Administration Sennosides 17.2 mg 01/14/21 21:00 01/14/21 21:31 Sennosides 8.6 Mg Tablet PO 17.2 mg BEDTIME DUYEN Administration Tramadol HCl 50 mg 01/14/21 09:17 01/14/21 12:02 Tramadol 50 Mg Tablet PO 50 mg QID PRN Administration Pain, Moderate (4-6) Exam Vital Signs (past 8 hours): - 01/15/21 02:00 01/15/21 03:00 01/15/21 03:30 Temperature Pulse Rate 79 80 72 Respiratory Rate 24 25 H 13 Blood Pressure Pulse Oximetry 92 90 L 90 L 01/15/21 04:00 01/15/21 05:00 01/15/21 06:00 Temperature Pulse Rate 77 74 84 Respiratory Rate 15 15 31 H Blood Pressure Pulse Oximetry 92 90 L 90 L 01/15/21 06:24 01/15/21 08:00 01/15/21 08:15 Temperature 97.9 F Pulse Rate 78 72 Respiratory Rate 11 L 11 L Blood Pressure 94/59 L Pulse Oximetry 92 92 91 01/15/21 08:37 01/15/21 08:39 Temperature Pulse Rate 74 74 Respiratory Rate 20 20 Blood Pressure 94/59 L Pulse Oximetry 90 L 90 L Fraction of Inspired Oxygen 50 Oxygen Delivery Method Heated High Flow Oxygen Flow Rate 45 Objective Labs Result Diagrams: 01/15/21 04:54 01/15/21 04:54 Labs: Laboratory Results - last 24 hr 01/15/21 01/15/21 01/15/21 04:54 04:54 04:54 WBC 8.3 RBC 4.45 L Hgb 14.0 Hct 43.1 MCV 96.9 MCH 31.5 MCHC 32.5 RDW 14.4 Plt Count 163 Neut % (Auto) 75.9 H Lymph % (Auto) 13.7 L [place] % (Auto) 7.7 Eos % (Auto) 2.2 Baso % (Auto) 0.5 Neut # (Auto) 6300 Lymph # (Auto) 1100 [place] # (Auto) 600 Eos # (Auto) 200 Baso # (Auto) 0 Sodium 137 Potassium 4.8 Chloride 100 Carbon Dioxide 33 H BUN 31 H Creatinine 1.07 Estimated GFR > 60.0 BUN/Creatinine Ratio 29.0 H Glucose 105 Calcium 9.3 Magnesium 2.4 H Procalcitonin 0.06 Assessment & Plan Assessment & Plan narrative: # Acute on chronic hypoxemia respiratory failure -- Considerd multifactorial due to volume overload, PNTX, PNA, and atelectasis -- Recommend initiating diuretic to seek net negative fluid balance -- Needs PT/Ot consultation and OOB as tolerated to decrease risk of atelectasis -- Agree with course of abx per primary team -- PNTX management per surgery -- RT to titrate flow and FiO2 to maintain goal SpO2 > 92% # Secondary spontaneous PNTX -- Secondary to IPF and COPD -- s/p chest tube placement -- On water seal -- Cont supplemental oxygen to maintain nitrogen washout # COPD -- On duoneb and prednisone -- Early mobility as tolerated Time Spent With Patient Critical Care time: I spent a total of [] minutes of critical care time on this patient's care today; this time is exclusive of procedural time.
[2021-01-15] MEDS: PIPERACILLIN/TAZO 4.5 GM in SODIUM CHLORIDE 0.9% 100 ML 25 ML IV (10:33)
[2021-01-15 11:32] LABS: Fractionated Inspired Oxygen 50; Oxygen Saturation ABG 93 % (95-100); PO2 ABG 69 mmHg (80-100); pH ABG 7.39 (7.35-7.45)
--- NOTE | 2021-01-15 12:00 | DI.RAD.S_ITS ---
PROCEDURE: XR CHEST 1V INDICATIONS: post chest tube to water seal, pneumothorax follow up TECHNIQUE: One view of the chest was acquired. COMPARISON: [facility], CR, XR CHEST 1V, 01/15/2021, 7:41. FINDINGS: Surgical changes and devices: Redemonstrated left chest tube. Lungs and pleura: Coarsened interstitial markings. Increased left apical pneumothorax, now measuring 2.7 cm in width. Bibasal atelectasis with poor delineation of the diaphragmatic contours. Mediastinum: Calcified atheromatous change of the aorta. Enlargement of the cardiac silhouette. Bones and chest wall: No suspicious bony lesions. Redemonstrated extensive left subcutaneous emphysema. IMPRESSION: Interval enlargement of the patient's left pneumothorax. Findings were discussed with the patient's ICU nurse at the time of dictation. Dictated by: Darci Herman M.D. on 01/15/2021 at 12:53 Approved by: Darci Herman M.D. on 01/15/2021 at 12:59
--- NOTE | 2021-01-15 13:08 | PC.NURSE ---
Day Shift Note Received call from radiologist reporting increase in pneumothorax on pt's 1200 CXR since going to water seal at approx. 0830. Dr. Moreno and Dr. Arias notified. Chest tube to remain to water seal per Dr. Arias who will round later today.
[2021-01-15] MEDS: PIPERACILLIN/TAZO 3.375 GM in SODIUM CHLORIDE 0.9% 100 ML 25 ML IV ×2 (13:55→20:39)
--- NOTE | 2021-01-15 18:02 | PM.PN.1 ---
Subjective Subjective Interval history: No new complaints. Chest tube is to water seal. CXR shows apical PTX slightly increased in size from earlier. Exam Vital Signs (past 8 hours): - 01/15/21 12:00 01/15/21 12:48 01/15/21 12:58 Temperature 98 F Pulse Rate 69 77 71 Respiratory Rate 12 Blood Pressure 125/73 126/73 Pulse Oximetry 93 92 92 01/15/21 16:00 01/15/21 16:27 01/15/21 16:31 Temperature Pulse Rate 72 72 Respiratory Rate 16 16 Blood Pressure 136/68 Pulse Oximetry 96 98 98 01/15/21 16:57 Temperature 97.3 F L Pulse Rate 68 Respiratory Rate 17 Blood Pressure 136/68 Pulse Oximetry 94 Fraction of Inspired Oxygen 50 Oxygen Delivery Method Heated High Flow Oxygen Flow Rate 45 Narrative Exam Narrative: No acute distress Left side chest tube is to water seal, has small intermittent air leak. There is normal respiratory variation Objective Labs Result Diagrams: 01/15/21 04:54 01/15/21 04:54 Labs: Laboratory Results - last 24 hr 01/15/21 01/15/21 01/15/21 04:54 04:54 04:54 WBC 8.3 RBC 4.45 L Hgb 14.0 Hct 43.1 MCV 96.9 MCH 31.5 MCHC 32.5 RDW 14.4 Plt Count 163 Neut % (Auto) 75.9 H Lymph % (Auto) 13.7 L [place] % (Auto) 7.7 Eos % (Auto) 2.2 Baso % (Auto) 0.5 Neut # (Auto) 6300 Lymph # (Auto) 1100 [place] # (Auto) 600 Eos # (Auto) 200 Baso # (Auto) 0 ABG pH ABG pCO2 ABG pO2 ABG HCO3 ABG Total CO2 ABG O2 Saturation ABG Base Excess FiO2 Sodium 137 Potassium 4.8 Chloride 100 Carbon Dioxide 33 H BUN 31 H Creatinine 1.07 Estimated GFR > 60.0 BUN/Creatinine Ratio 29.0 H Glucose 105 Calcium 9.3 Magnesium 2.4 H Procalcitonin 0.06 01/15/21 09:31 WBC RBC Hgb Hct MCV MCH MCHC RDW Plt Count Neut % (Auto) Lymph % (Auto) [place] % (Auto) Eos % (Auto) Baso % (Auto) Neut # (Auto) Lymph # (Auto) [place] # (Auto) Eos # (Auto) Baso # (Auto) ABG pH 7.39 ABG pCO2 56.0 H ABG pO2 69 L ABG HCO3 9 L ABG Total CO2 34 H ABG O2 Saturation 93 L ABG Base Excess 36.0 H FiO2 50 Sodium Potassium Chloride Carbon Dioxide BUN Creatinine Estimated GFR BUN/Creatinine Ratio Glucose Calcium Magnesium Procalcitonin PFSH Medical History Durán's esophagus Constipation COPD (chronic obstructive pulmonary disease) Edema Emphysema of lung Former smoker GERD (gastroesophageal reflux disease) Gout Hard of hearing Hyperglycemia Impaired vision Prostate enlargement Pulmonary embolism, bilateral Raynaud phenomenon Right upper lobe pulmonary nodule Sleep apnea with use of continuous positive airway pressure (CPAP) Surgical History H/O knee surgery Family History Father Heart disease Brother COPD (chronic obstructive pulmonary disease) Social History marital status: household members: spouse Smoking Status: Former smoker alcohol intake: never substance use type: does not use Assessment & Plan Assessment and plan (1) Pneumothorax, spontaneous, tension: Status: Acute Plan: Continue chest tube to water seal. DC chest tube when air leak resolves. Time Spent With Patient Critical Care time: I spent a total of [] minutes of critical care time on this patient's care today; this time is exclusive of procedural time. Quality VTE Deep Vein Thrombosis/Pulmonary Embolism Present on Admission: No
--- NOTE | 2021-01-15 20:00 | P.PN_ITS ---
Subjective Subjective Date Patient Seen: 01/15/21 Time Patient Seen: 08:00 Interval history: No complaints today. He says he feels better. However, overnight he started requiring more oxygen and has been on high flow nasal cannula. Exam Vital Signs (past 8 hours): - 01/15/21 12:48 01/15/21 12:58 01/15/21 16:00 Temperature Pulse Rate 77 71 Respiratory Rate 21 21 Blood Pressure 126/73 Pulse Oximetry 92 92 96 01/15/21 16:27 01/15/21 16:31 01/15/21 16:57 Temperature 97.3 F L Pulse Rate 72 72 68 Respiratory Rate 16 16 17 Blood Pressure 136/68 136/68 Pulse Oximetry 98 98 94 01/15/21 18:00 01/15/21 19:06 01/15/21 19:51 Temperature Pulse Rate 101 H 87 Respiratory Rate 20 17 Blood Pressure Pulse Oximetry 97 96 92 Fraction of Inspired Oxygen 40 Oxygen Delivery Method Heated High Flow Oxygen Flow Rate 40 Narrative Exam Narrative: GENERAL APPEARANCE:? Chronically ill-appearing male in no acute distress CHEST: Left-sided chest tube in place with serosanguineous drainage. LUNGS: +sonorous wheezing CARDIOVASCULAR: regular rate and rhythm without any murmurs ABDOMEN: Soft and nontender with normal bowel sounds. No ascites was noted. EXTREMITIES: No edema. Objective Labs Result Diagrams: 01/15/21 04:54 01/15/21 04:54 Labs: Laboratory Results - last 24 hr 01/15/21 01/15/21 01/15/21 04:54 04:54 04:54 WBC 8.3 RBC 4.45 L Hgb 14.0 Hct 43.1 MCV 96.9 MCH 31.5 MCHC 32.5 RDW 14.4 Plt Count 163 Neut % (Auto) 75.9 H Lymph % (Auto) 13.7 L [place] % (Auto) 7.7 Eos % (Auto) 2.2 Baso % (Auto) 0.5 Neut # (Auto) 6300 Lymph # (Auto) 1100 [place] # (Auto) 600 Eos # (Auto) 200 Baso # (Auto) 0 ABG pH ABG pCO2 ABG pO2 ABG HCO3 ABG Total CO2 ABG O2 Saturation ABG Base Excess FiO2 Sodium 137 Potassium 4.8 Chloride 100 Carbon Dioxide 33 H BUN 31 H Creatinine 1.07 Estimated GFR > 60.0 BUN/Creatinine Ratio 29.0 H Glucose 105 Calcium 9.3 Magnesium 2.4 H Procalcitonin 0.06 01/15/21 09:31 WBC RBC Hgb Hct MCV MCH MCHC RDW Plt Count Neut % (Auto) Lymph % (Auto) [place] % (Auto) Eos % (Auto) Baso % (Auto) Neut # (Auto) Lymph # (Auto) [place] # (Auto) Eos # (Auto) Baso # (Auto) ABG pH 7.39 ABG pCO2 56.0 H ABG pO2 69 L ABG HCO3 9 L ABG Total CO2 34 H ABG O2 Saturation 93 L ABG Base Excess 36.0 H FiO2 50 Sodium Potassium Chloride Carbon Dioxide BUN Creatinine Estimated GFR BUN/Creatinine Ratio Glucose Calcium Magnesium Procalcitonin [facility] Medical History Durán's esophagus Constipation COPD (chronic obstructive pulmonary disease) Edema Emphysema of lung Former smoker GERD (gastroesophageal reflux disease) Gout Hard of hearing Hyperglycemia Impaired vision Prostate enlargement Pulmonary embolism, bilateral Raynaud phenomenon Right upper lobe pulmonary nodule Sleep apnea with use of continuous positive airway pressure (CPAP) Surgical History H/O knee surgery Family History Father Heart disease Brother COPD (chronic obstructive pulmonary disease) Social History marital status: household members: spouse Smoking Status: Former smoker alcohol intake: never substance use type: does not use Assessment & Plan Assessment & Plan narrative: 80M with PMH of COPD/idiopathic pulmonary fibrosis, and gout who was admitted with acute on chronic hypoxic respiratory failure secondary to tension pneumothorax. 1. Acute on chronic hypoxemic respiratory failure secondary to L tension pneumothorax with possible acute heart failure. - Chest tube placed in the ER with re-expansion and improved respiratory status, trial of water seal, and pneumothorax increased, so back to suction - given steroids in the ER, no indication for recent exacerbation, will hold on further steroids - Continue to wean supplemental oxygen, usually on 4 L at home. Currently on heated high flow. - general surgery to manage chest tube. -? Last TTE appears to be from 05/2020 which showed EF 55-60% Mod-severe pulmonary hypertension.? Underwent pulmonary arteriography on 01/10 to assess suitability for surgery according to documentation. Showed chronic thromboembolic disease bilaterally. Right sided access appears to have been obtained at that time. It is unclear if potential surgery is expected as a result of this study. - continue to trial slow diuresis, 40 mg IV daily pending TTE read. - continue home medications, replace with formulary where necessary - TTE today pending -started antibiotics with aztreonam, azithromycin -MRSA negative, so no vanco -ordered for steroids 2. history of bilateral PE, COPD ?- continue apixaban 3. History of gout ?- no flare symptoms. ?- continue allopurinol 4. possible acute heart failure, diastolic ?- TTE as above pending, see if diuresis improves hypoxia as noted above. was recently started on torsemide as an outpatient for LE edema. May be evidence of ? R heart disease given pulmonary HTN. Watch for re-expansion pulmonary edema as well. Code: Full, surrogate is patient's spouse Dispo: Admit as inpatient as his stay is expected to exceed 2 midnights DVT:? On apixaban Time Spent With Patient Critical Care time: I spent a total of [] minutes of critical care time on this patient's care today; this time is exclusive of procedural time. Quality VTE Deep Vein Thrombosis/Pulmonary Embolism Present on Admission: No
--- NOTE | 2021-01-15 20:39 | PM.ICURNDS ---
- :: This patient was seen via real time interactive two-way audiovisual telecommunication. Note: Case d/w bedside nursing and resp staff. Event noted, chart reviewed. CT placed on waterseal today with inc in PTX, surgeon aware, plan to keep CT on water seal for now as pt clinically stable. Still continues to have bubbles in chamber. d/w staff, if pt decompensates, place CT to suction. Pt is quite deconditioned, would benefit from PT eval.
[2021-01-15] MEDS: SENNOSIDES 8.6 MG TABLET 17.2 MG PO (20:40)
[2021-01-15] MEDS: MELATONIN 3 MG TABLET 6 MG PO (20:40)
[2021-01-16] VITALS (44 sets, daily range): BP systolic 97–124; BP diastolic 54–70; PULSE 66–93; RESP 14–50; TEMP 36.3–36.7; O2SAT 81–100
[2021-01-16] MEDS: CALCIUM CARBONATE 500 MG TAB PO (03:35)
[2021-01-16] MEDS: PIPERACILLIN/TAZO 3.375 GM in SODIUM CHLORIDE 0.9% 100 ML 25 ML IV ×2 (05:08→13:55)
[2021-01-16 05:24] LABS: Hematocrit 42.9 % (41-53); Mean Corpuscular HGB Conc 32.6 % (30-36); Mean Corpuscular Hemoglobin 31.8 PG (26-34); Mean Corpuscular Volume 97.5 fL (80-100); Platelet Count 175 X10^3/uL (150-400); Red Cell Distribution Width 14.3 % (11.6-14.8); White Blood Cell Count 7.8 X10^3/uL (4.5-11.0)
[2021-01-16 05:28] LABS: HCO3 ABG 34 mmol/L (22-26); TCO2 ABG 36 mmol/L (21-31)
[2021-01-16 05:28] LABS: BUN Creatinine Ratio 25.6 (6-22); Blood Urea Nitrogen 31 mg/dL (9-20); Calcium 9.3 mg/dL (8.4-10.2); Carbon Dioxide 33 mmol/L (22-32); Chloride 97 mmol/L (98-107); Estimated Glomerular Filt Rate 57.4 mL/min (>60); Glucose 134 mg/dL (80-110); HEMOLYSIS < 15 (0-50); Magnesium 2.2 mg/dL (1.6-2.3); Potassium 4.4 mmol/L (3.4-5.1); Sodium 137 mmol/L (137-145)
--- NOTE | 2021-01-16 07:00 | DI.RAD.S_ITS ---
PROCEDURE: XR CHEST 1V INDICATIONS: follow up for pneumothorax TECHNIQUE: One view of the chest was acquired. COMPARISON: [facility], , XR CHEST 1V, 01/15/2021, 12:23. FINDINGS: Surgical changes and devices: Left-sided chest tube.. Lungs and pleura: Small left apical pneumothorax decreased in size compared to January 15, 2021. Patchy opacities in the lungs stable compared to prior exam. No pleural effusions. Mediastinum: Mediastinal contours appear normal. Heart size is normal. Bones and chest wall: Extensive left chest wall subcutaneous air. No suspicious bony lesions. Overlying soft tissues appear unremarkable. IMPRESSION: Small left apical pneumothorax decreased in size compared to January 15, 2021. Dictated by: Tasneem Mccann MD, PhD on 01/16/2021 at 9:37 Approved by: Tasneem Mccann MD, PhD on 01/16/2021 at 9:38
[2021-01-16] MEDS: ALBUTEROL/IPRATROPIUM 3 ML AMPUL INH ×3 (07:50→22:07)
[2021-01-16] MEDS: polyethylene glycoL 3350 17 GM POWD.PACK PO (08:51)
[2021-01-16] MEDS: AZITHROMYCIN 500 MG in DEXTROSE 5% IN WATER 250 ML IV (08:51)
[2021-01-16] MEDS: predniSONE 20 MG TABLET 40 MG PO (08:52)
[2021-01-16] MEDS: allopurinoL 100 MG TABLET PO (08:52)
[2021-01-16] MEDS: APIXABAN 5 MG TABLET PO ×2 (08:52→20:57)
--- NOTE | 2021-01-16 09:00 | PT.IIE ---
Current Diagnoses Spontaneous tension pneumothorax (01/13/21) Acute and chronic respiratory failure with hypoxia (01/13/21) Medical History (Last Reviewed 01/14/21 @ 17:37 by Ghazal Medellin MD) Durán's esophagus Constipation COPD (chronic obstructive pulmonary disease) Edema Emphysema of lung Former smoker GERD (gastroesophageal reflux disease) Gout Hard of hearing Hyperglycemia Impaired vision Prostate enlargement Pulmonary embolism, bilateral Raynaud phenomenon Right upper lobe pulmonary nodule Sleep apnea with use of continuous positive airway pressure (CPAP) Physical Therapy Inpatient Evaluation/Re-Eval M1 PT/OT-IP Prior Functional Status Start: 01/16/21 08:56 Freq: NEEDED Status: Active Protocol: Document 01/16/21 08:56 [facility] (Rec: 01/16/21 10:46 [facility] [id number]) Medical Review Prior Functional Status Medical History Reviewed Yes Diet/Fluid Consistency Regular Communication WNL Mobility and Gait Pt reports indep w/o AD Activities of Daily Living and IADL's indep w/ADLs & drives and cooks at cleans. Prior Functional Level (Other details) Pt on 4L of O2 at home and used to cord management Social History Household Members spouse Living Arrangements House Number of Floors (Floors) One Floor Number of Stairs To Enter/Railing? none Home Environment Standard Height Toilet,Walk in Shower Home Equipment Shower Seat without Backrest Additional Social History Comment dgt here to help as needed from [place]. able to help pt upon return M2 PT-IP Current Condition Start: 01/16/21 08:56 Freq: NEEDED Status: Active Protocol: Document 01/16/21 08:56 [facility] (Rec: 01/16/21 09:06 [facility] [id number]) Physical Therapy Current Condition Current Condition Evaluation Date 01/16/21 Treatment Diagnosis weakness, acute on chronic hypoxemic respiratory failure M3 PT-IP Subjective Start: 01/16/21 08:56 Freq: NEEDED Status: Active Protocol: Document 01/16/21 08:56 [facility] (Rec: 01/16/21 09:06 [facility] [id number]) Subjective Physical Therapy Visit Type Type Initial Evaluation Visit Start Time 08:25 Visit Stop Time 08:53 Total Visit Minutes 28 Number of RECORDS TECH Visits 0 Physical Therapy Visit Comments Patient Goals return home M4 PT-IP Mobility and Gait Start: 01/16/21 08:56 Freq: NEEDED Status: Active Protocol: Document 01/16/21 08:56 [facility] (Rec: 01/16/21 09:06 [facility] [id number]) PT-Bed Mobility Assessment Supine to Sit Supine to Sit Contact Guard Assistance,Head of Bed Elevated Scooting Scooting to Edge of Bed Standby Assistance PT-Transfer Assessment Sit to and From Stand Sit to and from Stand Contact Guard Assistance,Use of Upper Extremities Transfers Transfer Destination Chair Transfer Technique Stand Step Pivot Transfer Ability Level of Assist Contact Guard Assistance Comments Mobility Comments Supine to sit w/HOB elevated SBA then scoot to EOB SBA then sit to stand CGA w/STIFF NECK LOADER and PT managing cords. Pt took a couple steps (about 5ft) then sat in chair and he did exercises w/PT then left seated in chair w/call light in reach. Gait Assessment Gait Gait Assistance Required: Contact Guard Assist Distance (Feet) 5 Assistive Devices Orthotic/Prosthetic Devices or Brace: No Gait Deviations General Gait Pattern Decreased Stride Length,Flexed Trunk Factors Limiting Gait Function Factors Limiting Gait Function Decreased Activity Tolerance, Decreased Strength,Pain,Poor Balance PT-Balance Assessment Sitting Balance and Reactions Static Sitting Balance Ability Good Dynamic Sitting Balance Ability Good Standing Balance and Reactions Static Standing Balance Ability Fair Dynamic Standing Balance Ability Fair M5 PT-IP Objective Assessments Start: 01/16/21 08:56 Freq: NEEDED Status: Active Protocol: Document 01/16/21 08:56 [facility] (Rec: 01/16/21 09:06 [facility] [id number]) Orientation Orientation/Cognition Level of Alertness Alert Safety Awareness Understands Safety Issues Memory Description No Deficits Noted Strength Lower Extremity Strength Hip 4/5 Knee 4/5 Ankle 4/5 M6 PT-IP Treatment Start: 01/16/21 08:56 Freq: NEEDED Status: Active Protocol: Document 01/16/21 08:56 [facility] (Rec: 01/16/21 09:06 [facility] [id number]) Physical Therapy Treatment Other Treatments Other Treatment Performed Standing: heel raises, may B , hip abd B, 5x sit to stand M7 PT-IP Assessment and Plan Start: 01/16/21 08:56 Freq: NEEDED Status: Active Protocol: Document 01/16/21 08:56 [facility] (Rec: 01/16/21 09:06 [facility] [id number]) PT Summary Assessment and Plan Potential Rehabilitation Potential Good Status of Condition at Evaluation Stable Summary Impairments Pain,Strength,Balance,Bed Mobility,Transfers,Activity Tolerance Assessment Summary Pt presents w/acute on chronic respiratory failure secondary to L tension pneumothorax w/ possible acute diastolic heart failure w/current chest tube and on heated high flow oxygen . He typically is on 4L at home and is indep w/most activities. he did well w/PT today for mobility but w/bed mobility and transfer to chair , pt O2 did drop to 89% w/high flow O2 on. He was able to do exercises w/drop only 92% though but is currently limited in activity tolearnce d/t O2 saturation levels. He would benefit from skilled PT during his stay to work on his mobility, balance ,gait,and activity tolerance in order to return home safely. Goals Bed Mobility Goal Independent Transfer Goal Independent Gait Goal Independent Gait Distance 150ft Days to Meet Goals 6 Frequency of Treatment Frequency Of Treatment Once a Day Treatment Plan Physical Therapy Treatment Plan Bed Mobility Training,Transfer Training,Gait Training, Therapeutic Exercise,Balance Retraining,Neuromuscular Re-ed ,Manual Therapy Precautions Other Precautions chest tube Weight Bearing Status Weight Bearing Status Full Weight Bearing Recommendations To Nursing Amount of Assist Needed 1 Person Assist Discharge Recommendations PT Discharge Recommendations Home with Assistance,Home Health Equipment Needed for Home Before possible 4WW if needs seat for Discharge activity tolerance Transportation Needs at Discharge Private Vehicle
--- NOTE | 2021-01-16 09:08 | PM.PN.1 ---
Subjective Subjective Date Patient Seen: 01/16/21 Time Patient Seen: 09:09 Interval history: patient just woke up. No events overnight. This morning CXR shows marked decrease in apical PTX that initially expanded on waterseal. Exam Vital Signs (past 8 hours): - 01/16/21 01:48 01/16/21 03:47 01/16/21 04:00 Temperature 97.4 F L Pulse Rate 76 71 75 Respiratory Rate 19 22 19 Blood Pressure 109/65 119/68 119/68 Pulse Oximetry 100 98 99 01/16/21 05:46 01/16/21 07:52 01/16/21 07:56 Temperature Pulse Rate 87 68 69 Respiratory Rate 17 24 24 Blood Pressure 119/68 Pulse Oximetry 99 95 94 Fraction of Inspired Oxygen 40 Oxygen Delivery Method Heated High Flow Oxygen Flow Rate 45 Const General: frail appearing Nutritional Appearance: thin Orientation: alert and awake Neck Neck: trachea midline Chest Other: left chest wall crepitus Resp Effort & Inspection: normal respiratory effort and able to speak in complete sentences Cardio Rate: regular rate Rhythm: regular rhythm Objective Labs Result Diagrams: 01/16/21 04:46 01/16/21 04:46 Labs: Laboratory Results - last 24 hr 01/15/21 01/15/21 01/16/21 04:54 09:31 04:46 WBC 7.8 RBC 4.40 L Hgb 14.0 Hct 42.9 MCV 97.5 MCH 31.8 MCHC 32.6 RDW 14.3 Plt Count 175 ABG pH 7.39 ABG pCO2 56.0 H ABG pO2 69 L ABG HCO3 34 H ABG Total CO2 36 H ABG O2 Saturation 93 L ABG Base Excess 9.0 H FiO2 50 Sodium Potassium Chloride Carbon Dioxide BUN Creatinine Estimated GFR BUN/Creatinine Ratio Glucose Calcium Magnesium Procalcitonin 0.06 01/16/21 04:46 WBC RBC Hgb Hct MCV MCH MCHC RDW Plt Count ABG pH ABG pCO2 ABG pO2 ABG HCO3 ABG Total CO2 ABG O2 Saturation ABG Base Excess FiO2 Sodium 137 Potassium 4.4 Chloride 97 L Carbon Dioxide 33 H BUN 31 H Creatinine 1.21 Estimated GFR 57.4 L BUN/Creatinine Ratio 25.6 H Glucose 134 H Calcium 9.3 Magnesium 2.2 Procalcitonin [facility] Medical History Durán's esophagus Constipation COPD (chronic obstructive pulmonary disease) Edema Emphysema of lung Former smoker GERD (gastroesophageal reflux disease) Gout Hard of hearing Hyperglycemia Impaired vision Prostate enlargement Pulmonary embolism, bilateral Raynaud phenomenon Right upper lobe pulmonary nodule Sleep apnea with use of continuous positive airway pressure (CPAP) Surgical History H/O knee surgery Family History Father Heart disease Brother COPD (chronic obstructive pulmonary disease) Social History marital status: household members: spouse Smoking Status: Former smoker alcohol intake: never substance use type: does not use Assessment & Plan Assessment & Plan narrative: Lung up with sliver of apical PTX, no air leak. Plan: removal of Chest tube and follow up CXR COVID-19 COVID-19 status: Negative Time Spent With Patient Time with patient: 30 to 49 minutes with 50% spent counseling/coordinating care Critical Care time: I spent a total of [] minutes of critical care time on this patient's care today; this time is exclusive of procedural time. Quality VTE Deep Vein Thrombosis/Pulmonary Embolism Present on Admission: No
--- NOTE | 2021-01-16 09:38 | DI.RAD.S_ITS ---
PROCEDURE: XR CHEST 1V INDICATIONS: post chest tube removal TECHNIQUE: One view of the chest was acquired. COMPARISON: [facility], , XR CHEST 1V, 01/16/2021, 5:43. FINDINGS: Surgical changes and devices: None. Left-sided chest tube has been removed Lungs and pleura: Tiny left apical pneumothorax measures 5 mm to the thoracic apex. Diffuse chronic interstitial changes noted involving both lungs. Left basilar atelectasis and/or infiltrate present. Mediastinum: Heart size is enlarged. Atherosclerotic vascular calcification noted in the aortic arch. Bones and chest wall: No suspicious bony lesions. Overlying soft tissues appear unremarkable. Left-sided chest wall air is similar to the prior. IMPRESSION: 1. Tiny residual left apical pneumothorax measures 5 mm to the thoracic apex. 2. Stable left chest wall subcutaneous air. 3. Left basilar atelectasis and or infiltrate. Approved by: Lane David M.D. on 01/16/2021 at 11:47
--- NOTE | 2021-01-16 09:44 | PM.PN.EICU ---
Subjective Subjective :: This patient was seen via real time interactive two-way audiovisual telecommunication. pt denies shortness of breath or chest pain s/p chest tube removal Current Medications Current Medications Medications: Home Medications albuterol sulfate 90 mcg/actuation aerosol inhaler (ProAir HFA) 2 puff INHALATION Q4H PRN 04/25/19 [History Confirmed 01/13/21] omeprazole 20 mg capsule,delayed release 20 mg PO BID #180 cap 08/03/20 [Rx Confirmed 01/13/21] allopurinol 100 mg tablet See Rx Instructions .ROUTE .COMPLEX #90 tab 09/26/20 [Rx Confirmed 01/13/21] colchicine 0.6 mg tablet 1.2 mg PO DAILY PRN #30 tab 11/06/20 [Rx Confirmed 01/13/21] apixaban 5 mg tablet (Eliquis) 5 mg PO BID #180 tab 11/30/20 [Rx Confirmed 01/13/21] tiotropium bromide 2.5 mcg/actuation mist for inhalation (Spiriva Respimat) 2 puff INHALATION DAILY #4 g 12/06/20 [Rx Confirmed 01/13/21] torsemide 10 mg tablet 10 mg PO DAILY 01/13/21 [History Confirmed 01/13/21] Visit Medications (administered) Generic Name Dose Route Start Last Admin Trade Name Freq PRN Reason Stop Dose Admin Acetaminophen 975 mg 01/13/21 13:19 01/14/21 09:17 Acetaminophen 325 Mg Tablet PO 975 mg Q8H PRN Administration Fever/Mild Pain (1-3) Albuterol/Ipratropium 3 ml 01/13/21 23:00 01/16/21 07:50 Albuterol/Ipratropium 3 Ml Ampul INH 3 ml [id number] DUYEN Administration Allopurinol 100 mg 01/14/21 09:00 01/16/21 08:52 Allopurinol 100 Mg Tablet PO 100 mg DAILY DUYEN Administration Apixaban 5 mg 01/13/21 21:00 01/16/21 08:52 Apixaban 5 Mg Tablet PO 5 mg BID DUYEN Administration Calcium Carbonate 500 mg 01/14/21 15:12 01/16/21 03:35 Calcium Carbonate 500 Mg Tab PO 500 mg PRN PRN Administration Dyspepsia Azithromycin 500 mg/ Dextrose 250 mls @ 250 mls/hr 01/15/21 10:00 01/16/21 08:51 IV 250 mls/hr Q24H DUYEN Administration Piperacillin Sod/Tazobactam 100 mls @ 25 mls/hr 01/15/21 13:00 01/16/21 08:41 Sod 3.375 gm/ Sodium Chloride IV Infused Q8H DUYEN Infusion Melatonin 6 mg 01/14/21 21:15 01/15/21 20:40 Melatonin 3 Mg Tablet PO 6 mg BEDTIME DUYEN Administration Ondansetron HCl 4 mg 01/14/21 12:21 01/15/21 12:55 Ondansetron 4 Mg/2 Ml Inj IV 4 mg Q4HR PRN Administration Nausea And Vomiting Oxycodone HCl 5 mg 01/13/21 13:19 01/15/21 02:04 Oxycodone Ir 5 Mg Tablet PO 5 mg Q6HR PRN Administration Pain, Moderate (4-6) Polyethylene Glycol 17 gm 01/14/21 09:00 01/16/21 08:51 Polyethylene Glycol 3350 17 Gm Powd.Pack PO 17 gm DAILY DUYEN Administration Prednisone 40 mg 01/15/21 09:00 01/16/21 08:52 Prednisone 20 Mg Tablet PO 40 mg DAILY DUYEN Administration Sennosides 17.2 mg 01/14/21 21:00 01/15/21 20:40 Sennosides 8.6 Mg Tablet PO 17.2 mg BEDTIME DUYEN Administration Tramadol HCl 50 mg 01/14/21 09:17 01/14/21 12:02 Tramadol 50 Mg Tablet PO 50 mg QID PRN Administration Pain, Moderate (4-6) Objective Labs Result Diagrams: 01/16/21 04:46 01/16/21 04:46 Labs: Laboratory Results - last 24 hr 01/15/21 01/16/21 01/16/21 09:31 04:46 04:46 WBC 7.8 RBC 4.40 L Hgb 14.0 Hct 42.9 MCV 97.5 MCH 31.8 MCHC 32.6 RDW 14.3 Plt Count 175 ABG pH 7.39 ABG pCO2 56.0 H ABG pO2 69 L ABG HCO3 34 H ABG Total CO2 36 H ABG O2 Saturation 93 L ABG Base Excess 9.0 H FiO2 50 Sodium 137 Potassium 4.4 Chloride 97 L Carbon Dioxide 33 H BUN 31 H Creatinine 1.21 Estimated GFR 57.4 L BUN/Creatinine Ratio 25.6 H Glucose 134 H Calcium 9.3 Magnesium 2.2 Exam Vital Signs (past 8 hours): - 01/16/21 01:48 01/16/21 03:47 01/16/21 04:00 Temperature 97.4 F L Pulse Rate 76 71 75 Respiratory Rate 19 22 19 Blood Pressure 109/65 119/68 119/68 Pulse Oximetry 100 98 99 01/16/21 05:46 01/16/21 07:52 01/16/21 07:56 Temperature Pulse Rate 87 68 69 Respiratory Rate 17 24 24 Blood Pressure 119/68 Pulse Oximetry 99 95 94 01/16/21 08:35 01/16/21 09:08 Temperature 97.8 F Pulse Rate 75 83 Respiratory Rate 16 20 Blood Pressure 120/57 L 120/57 L Pulse Oximetry 94 94 Fraction of Inspired Oxygen 38 Oxygen Delivery Method Heated High Flow Oxygen Flow Rate 40 Narrative Exam Narrative: no acute distress chest tube removed comfortable on 4lNC Quality TeleICU VTE Deep Vein Thrombosis/Pulmonary Embolism Present on Admission: No Assessment & Plan Assessment & Plan narrative: acute respiratory failure 2/2 to PTx chronic reps failure 2/2 to copd -chest tube removed, repeat cxr pending, if condition changes would get stat cxr and call surgery -currently on 4Lnc, home dose -cont nebs/steroids -diuretics/abx per primary team -apixaban for history of PE -suggest PT/OT/OOB as tolerated -please call tele ICU as needed Time Spent With Patient Critical Care time: I spent a total of [] minutes of critical care time on this patient's care today; this time is exclusive of procedural time.
--- NOTE | 2021-01-16 15:15 | PM.PN.1 ---
Subjective Subjective Date Patient Seen: 01/16/21 Time Patient Seen: 08:00 Interval history: Today he feels less short of breath. Overnight his high flow was able to be titrated down. This morning he was able to placed on nasal canula at his home oxygen setting of 4L. Exam Vital Signs (past 8 hours): - 01/16/21 07:52 01/16/21 07:56 01/16/21 08:35 Temperature 97.8 F Pulse Rate 68 69 75 Respiratory Rate 24 24 16 Blood Pressure 120/57 L Pulse Oximetry 95 94 94 01/16/21 09:08 01/16/21 09:15 01/16/21 09:20 Temperature Pulse Rate 83 Respiratory Rate 20 Blood Pressure 120/57 L Pulse Oximetry 94 98 96 01/16/21 12:10 01/16/21 13:15 01/16/21 14:29 Temperature 98.0 F Pulse Rate 80 68 Respiratory Rate 18 16 Blood Pressure 97/54 L Pulse Oximetry 95 97 98 Fraction of Inspired Oxygen 38 Oxygen Delivery Method Nasal Cannula Oxygen Flow Rate 4 Narrative Exam Narrative: GENERAL APPEARANCE:? Chronically ill-appearing male in no acute distress CHEST: chest tube removed LUNGS: coarse breath sounds bilaterally CARDIOVASCULAR: regular rate and rhythm without any murmurs ABDOMEN: Soft and nontender with normal bowel sounds. No ascites was noted. EXTREMITIES: No edema. Objective Labs Result Diagrams: 01/16/21 04:46 01/16/21 04:46 Labs: Laboratory Results - last 24 hr 01/15/21 01/16/21 01/16/21 09:31 04:46 04:46 WBC 7.8 RBC 4.40 L Hgb 14.0 Hct 42.9 MCV 97.5 MCH 31.8 MCHC 32.6 RDW 14.3 Plt Count 175 ABG pH 7.39 ABG pCO2 56.0 H ABG pO2 69 L ABG HCO3 34 H ABG Total CO2 36 H ABG O2 Saturation 93 L ABG Base Excess 9.0 H FiO2 50 Sodium 137 Potassium 4.4 Chloride 97 L Carbon Dioxide 33 H BUN 31 H Creatinine 1.21 Estimated GFR 57.4 L BUN/Creatinine Ratio 25.6 H Glucose 134 H Calcium 9.3 Magnesium 2.2 PFSH Medical History Durán's esophagus Constipation COPD (chronic obstructive pulmonary disease) Edema Emphysema of lung Former smoker GERD (gastroesophageal reflux disease) Gout Hard of hearing Hyperglycemia Impaired vision Prostate enlargement Pulmonary embolism, bilateral Raynaud phenomenon Right upper lobe pulmonary nodule Sleep apnea with use of continuous positive airway pressure (CPAP) Surgical History H/O knee surgery Family History Father Heart disease Brother COPD (chronic obstructive pulmonary disease) Social History marital status: household members: spouse Smoking Status: Former smoker alcohol intake: never substance use type: does not use Assessment & Plan Assessment & Plan narrative: 80M with PMH of COPD/idiopathic pulmonary fibrosis, and gout who was admitted with acute on chronic hypoxic respiratory failure secondary to tension pneumothorax. 1. Acute on chronic hypoxemic respiratory failure secondary to L tension pneumothorax with possible acute heart failure. -etiology like spontaneous bleb rupture in history of COPD - Chest tube placed in the ER with re-expansion and improved respiratory status, trial of water seal, and pneumothorax increased, so back to suction, then improved and removed on 01/16 - Continue to wean supplemental oxygen, usually now on home dose of 4L O2 -? Last TTE appears to be from 05/2020 which showed EF 55-60% Mod-severe pulmonary hypertension.? Underwent pulmonary arteriography on 01/10 to assess suitability for surgery according to documentation. Showed chronic thromboembolic disease bilaterally. Repeat ECHo shows estimated RVSP of at least 86 which is worse than prior - continue to trial slow diuresis, restart home torsemide - continue home medications, replace with formulary where necessary -started antibiotics with zosyn, azithro, stopped zosyn and switched to ceftriaxone -MRSA negative, so no vanco -ordered for steroids 2. history of bilateral PE, COPD ?- continue apixaban 3. History of gout ?- no flare symptoms. ?- continue allopurinol 4. possible acute heart failure, diastolic ?- TTE as above continue with gentle diuresis Code: Full, surrogate is patient's spouse Dispo: Admit as inpatient as his stay is expected to exceed 2 midnights DVT:? On apixaban Time Spent With Patient Critical Care time: I spent a total of [] minutes of critical care time on this patient's care today; this time is exclusive of procedural time. Quality VTE Deep Vein Thrombosis/Pulmonary Embolism Present on Admission: No
[2021-01-16] MEDS: cefTRIAXone 1,000 MG in SODIUM CHLORIDE 0.9% 100 ML 200 ML IV (16:33)
[2021-01-16] MEDS: SENNOSIDES 8.6 MG TABLET 17.2 MG PO (20:57)
[2021-01-16] MEDS: MELATONIN 3 MG TABLET 6 MG PO (20:57)
[2021-01-17] VITALS (19 sets, daily range): BP systolic 96–114; BP diastolic 55–66; PULSE 65–85; RESP 15–32; TEMP 36.3–36.7; O2SAT 86–100
[2021-01-17] MEDS: ONDANSETRON 4 MG/2 ML INJ IV ×2 (05:45→22:51)
[2021-01-17] MEDS: OXYCODONE IR 5 MG TABLET PO (05:45)
--- NOTE | 2021-01-17 06:34 | PC.NURSE ---
Patient's subcutaneous air in L flank expanding.
--- NOTE | 2021-01-17 07:10 | DI.RAD.S_ITS ---
PROCEDURE: XR CHEST 1V INDICATIONS: recent LPTX, increase in O2 requirement TECHNIQUE: One view of the chest was acquired. COMPARISON: [facility], CR, XR CHEST 1V, 01/16/2021, 5:43. [facility], CR, XR CHEST 1V, 01/16/2021, 9:40. FINDINGS: Surgical changes and devices: None. Lungs and pleura: Small left apical pneumothorax appears similar in size compared to recent prior studies. No right pneumothorax. Persistent small right pleural effusion, pulmonary edema, and basilar opacities consistent with atelectasis or consolidation, right greater than left. Mediastinum: Mediastinal contours appear unchanged. There is a large hiatal hernia. Heart size is normal. Bones and chest wall: No suspicious bony lesions. Overlying soft tissues redemonstrate subcutaneous emphysema in the left chest wall. IMPRESSION: 1. Small left apical pneumothorax appears similar to recent prior studies. 2. Persistent pulmonary edema, small right effusion, and bibasilar atelectasis or consolidation. Dictated by: Cresencio Dacosta M.D. on 01/17/2021 at 8:06 Approved by: Cresencio Dacosta M.D. on 01/17/2021 at 8:11
[2021-01-17] MEDS: polyethylene glycoL 3350 17 GM POWD.PACK PO (09:06)
[2021-01-17] MEDS: APIXABAN 5 MG TABLET PO ×2 (09:06→21:12)
[2021-01-17] MEDS: allopurinoL 100 MG TABLET PO (09:06)
[2021-01-17] MEDS: predniSONE 20 MG TABLET 40 MG PO (09:06)
[2021-01-17] MEDS: TORSEMIDE 10 MG TABLET PO (09:07)
[2021-01-17] MEDS: AZITHROMYCIN 500 MG in DEXTROSE 5% IN WATER 250 ML IV (09:07)
--- NOTE | 2021-01-17 09:08 | DI.CT.S_ITS ---
PROCEDURE: CT CHEST WO CON INDICATIONS: pneumothorax, subcutaneous emphysema TECHNIQUE: Noncontrast 5 mm thick sections acquired from the pulmonary apices to the posterior costophrenic angles. 1 mm lung window, 5 mm thick coronal and sagittal and 7 mm axial MIP reformats were then acquired. For radiation dose reduction, the following was used: automated exposure control, adjustment of mA and/or kV according to patient size. COMPARISON: [facility], CT, CT CHEST WO CON, 12/30/2019, 10:46. FINDINGS: Image quality: Excellent. Lungs and pleura: There is severe centrilobular emphysema. There is a left pneumothorax which is most prominent in the anterior inferior aspect of the left hemithorax. There is significant associated subcutaneous emphysema. There is some degree of left basilar atelectasis. There is a small amount of contralateral mediastinal shift. There is a subsolid mass in the right lower lobe which is increased in size compared to the prior study, previously measuring approximately 1.4 cm and currently measuring 2.8 cm. This is suspicious for a bronchogenic malignancy, possibly an adenocarcinoma. Mediastinum: Heart size is normal. No pericardial effusion. No mediastinal adenopathy by size criteria. Thoracic aorta and central pulmonary arteries are normal in size. Large hiatal hernia. Fluid-filled esophagus. Bones and chest wall: There is a defect in the left lateral chest wall measuring 1.3 cm in width, consistent with a full-thickness tear of the chest wall musculature. No suspicious bony lesions. No vertebral body compression fractures. No axillary or supraclavicular adenopathy by size criteria. Thyroid gland is unremarkable. Abdomen: Visualized upper abdominal solid organs and bowel loops appear normal in the absence of contrast. IMPRESSION: 1. Left pneumothorax with a degree of tension. 2. Full-thickness defect in the left lateral chest wall with communication to the subcutaneous tissues and extensive subcutaneous emphysema. 3. Advanced centrilobular emphysema. 4. 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 5. Large hiatal hernia. Comment: Findings were discussed with Dr. Moreno at the time of study dictation on 01/17/21 at 1111 hours. Findings were then discussed with Dr. Medellin on 01/17/2021 at 1113 hours. Dictated by: Jenaro Garcia M.D. on 01/17/2021 at 11:06 Approved by: Jenaro Garcia M.D. on 01/17/2021 at 11:30
--- NOTE | 2021-01-17 10:51 | PM.CALLCOV.1 ---
Call Coverage Note Note Date of Patient Contact: 01/17/21 Narrative of Care Provided: CXR shows stable left apical PTX. no intervention required. General surgery to sign off.
--- NOTE | 2021-01-17 10:52 | PT.IPTN ---
Current Diagnoses Spontaneous tension pneumothorax (01/13/21) Acute and chronic respiratory failure with hypoxia (01/13/21) Physical Therapy Treatment Note M2 PT-IP Current Condition Start: 01/16/21 08:56 Freq: NEEDED Status: Active Protocol: Document 01/16/21 08:56 LR (Rec: 01/16/21 09:06 [facility] [id number]) Physical Therapy Current Condition Current Condition Evaluation Date 01/16/21 Treatment Diagnosis weakness, acute on chronic hypoxemic respiratory failure M3 PT-IP Subjective Start: 01/16/21 08:56 Freq: NEEDED Status: Active Protocol: Document 01/17/21 10:42 HH (Rec: 01/17/21 10:51 HH [id number]) Subjective Physical Therapy Visit Type Type Treatment Note Visit Start Time 09:15 Visit Stop Time 09:40 Total Visit Minutes 20 Notes Pt is off for chest tube. presents during session Number of PHERESIS SPECIALIST Visits 0 Physical Therapy Visit Comments Patient Comments I want to use the bathroom Patient Goals return home M4 PT-IP Mobility and Gait Start: 01/16/21 08:56 Freq: NEEDED Status: Active Protocol: Document 01/17/21 10:42 HH (Rec: 01/17/21 10:51 HH [id number]) PT-Bed Mobility Assessment Supine to Sit Supine to Sit Standby Assistance,Head of Bed Elevated Scooting Scooting to Edge of Bed Standby Assistance PT-Transfer Assessment Sit to and From Stand Sit to and from Stand Contact Guard Assistance,Use of Upper Extremities Transfers Transfer Destination Toilet Transfer Technique Stand Step Pivot Transfer Ability Level of Assist Contact Guard Assistance Comments Mobility Comments Pt was in bed upon PT arrival. Chest tube has removed but 4L O2 NC was still in place. Pt requested to use bathroom. He then got up from supine elevated HOB and sat at R side EOB with SBA. His SpO2 maintained >95%. He then stood up by pushing off with B UEs on bed CGA and walked to bathroom without AD but CGA. He presented a flexed posture but gait was steady. He was able to automotive software engineer front of toilet to void with LUE occasional support on grab bar . He then requested to sit on toilet for BM and he was able to use grab bar to descend and doff his underwear. PT was told pt needed a bit time and I handed pt off to SERVICES ENGINEER for continuing care. Gait Assessment Gait Gait Assistance Required: Contact Guard Assist Distance (Feet) 10 Assistive Devices Orthotic/Prosthetic Devices or Brace: No Gait Deviations General Gait Pattern Decreased Stride Length,Flexed Trunk Factors Limiting Gait Function Factors Limiting Gait Function Decreased Activity Tolerance, Decreased Strength,Pain,Poor Balance Comments Gait Comments see mobility comments PT-Balance Assessment Sitting Balance and Reactions Static Sitting Balance Ability Good Dynamic Sitting Balance Ability Good Standing Balance and Reactions Static Standing Balance Ability Fair Dynamic Standing Balance Ability Fair M5 PT-IP Objective Assessments Start: 01/16/21 08:56 Freq: NEEDED Status: Active Protocol: Document 01/16/21 08:56 [facility] (Rec: 01/16/21 09:06 [facility] [id number]) Orientation Orientation/Cognition Level of Alertness Alert Safety Awareness Understands Safety Issues Memory Description No Deficits Noted Strength Lower Extremity Strength Hip 4/5 Knee 4/5 Ankle 4/5 M6 PT-IP Treatment Start: 01/16/21 08:56 Freq: NEEDED Status: Active Protocol: Document 01/16/21 08:56 [facility] (Rec: 01/16/21 09:06 [facility] [id number]) Physical Therapy Treatment Other Treatments Other Treatment Performed Standing: heel raises, may B , hip abd B, 5x sit to stand M7 PT-IP Assessment and Plan Start: 01/16/21 08:56 Freq: NEEDED Status: Active Protocol: Document 01/17/21 10:42 (Rec: 01/17/21 10:51 [id number]) PT Summary Assessment and Plan Potential Rehabilitation Potential Good Status of Condition at Evaluation Stable Summary Impairments Pain,Strength,Balance,Bed Mobility,Transfers,Activity Tolerance Assessment Summary Pt shows improved activity tolerance today with chest tubed removed and NC O2 at 4L/ min. He was able to access toilet without AD CGA. He was quite steady without getting SOB. Expect pt to improve continuously. Goals Bed Mobility Goal Independent Transfer Goal Independent Gait Goal Independent Gait Distance 150ft Days to Meet Goals 6 Frequency of Treatment Frequency Of Treatment Once a Day Treatment Plan Physical Therapy Treatment Plan Bed Mobility Training,Transfer Training,Gait Training, Therapeutic Exercise,Balance Retraining,Neuromuscular Re-ed ,Manual Therapy Weight Bearing Status Weight Bearing Status Full Weight Bearing Recommendations To Nursing Amount of Assist Needed Standby Assistance Discharge Recommendations PT Discharge Recommendations Home with Assistance,Home Health Equipment Needed for Home Before possible 4WW if needs seat for Discharge activity tolerance Transportation Needs at Discharge Private Vehicle
--- NOTE | 2021-01-17 11:28 | PM.CALLCOV.1 ---
Call Coverage Note Note Date of Patient Contact: 01/17/21 Narrative of Care Provided: CT chest done for increased crepitus but clinically baseline oxygenation. Dr. Garcia of radiology notified my of radiologic criteria of tension PTX. small to moderate anterior and base PTX with significant emphysema. Recommendation being a CT guided chest tube placement. Not available at [place]. Discussed with hospitalist the possibility of transfer verses phone discussion with Dr. Caballero at [facility]. There is the option of just observing, depending on the patient's wishes of aggressive treatment in the face of a terminal disease.
[2021-01-17] MEDS: ALBUTEROL/IPRATROPIUM 3 ML AMPUL INH ×3 (11:44→19:00)
--- NOTE | 2021-01-17 11:51 | PC.NURSE ---
Patient returned from CT, tolerated. Back on tele and 4L NC, took patient a minute to come back to 94-95% after getting back to the chair. Denies feeling SOB or increased WOB. VSS. IV ABX completed, continuous pulse ox remains on. Patient denies further needs at this time. Call light in reach.
[2021-01-17] MEDS: cefTRIAXone 1,000 MG in SODIUM CHLORIDE 0.9% 100 ML 200 ML IV (14:36)
--- NOTE | 2021-01-17 16:16 | PM.PN.1 ---
Subjective Subjective Date Patient Seen: 01/17/21 Time Patient Seen: 08:00 Interval history: Today he says he felt more nauseous than previous. He feels air leaking out of the site where chest was previously. Chest xray showed continued pneumothorax. CT chest ordered and showed anterior and infeior pneumothorax. Evaluated patient who did not feel worse shortness of breath, no tachycardia, no hypotension. Discussed with general surgery who recommended against reinserting chest tube and discussing case with thoracic surgery. Did discuss case with thoracic surgery at [facility] who agreed with not reinserting chest tube if patient continued to remain stable, monitor symptoms. Exam Vital Signs (past 8 hours): - 01/17/21 11:00 01/17/21 11:47 01/17/21 12:00 Temperature 97.3 F L Pulse Rate 65 66 Respiratory Rate 18 20 Blood Pressure 100/61 Pulse Oximetry 94 98 97 01/17/21 15:04 Temperature Pulse Rate 68 Respiratory Rate 16 Blood Pressure Pulse Oximetry 97 Fraction of Inspired Oxygen 38 Oxygen Delivery Method Nasal Cannula Oxygen Flow Rate 2 Narrative Exam Narrative: GENERAL APPEARANCE:? Chronically ill-appearing male in no acute distress CHEST: chest tube removed, significant stable crepitus over left axillary ribs and into back LUNGS: coarse breath sounds bilaterally CARDIOVASCULAR: regular rate and rhythm without any murmurs ABDOMEN: Soft and nontender with normal bowel sounds. No ascites was noted. EXTREMITIES: No edema. Objective Labs Result Diagrams: 01/16/21 04:46 01/16/21 04:46 [facility] Medical History Durán's esophagus Constipation COPD (chronic obstructive pulmonary disease) Edema Emphysema of lung Former smoker GERD (gastroesophageal reflux disease) Gout Hard of hearing Hyperglycemia Impaired vision Prostate enlargement Pulmonary embolism, bilateral Raynaud phenomenon Right upper lobe pulmonary nodule Sleep apnea with use of continuous positive airway pressure (CPAP) Surgical History H/O knee surgery Family History Father Heart disease Brother COPD (chronic obstructive pulmonary disease) Social History marital status: household members: spouse Smoking Status: Former smoker alcohol intake: never substance use type: does not use Assessment & Plan Assessment & Plan narrative: 80M with PMH of COPD/idiopathic pulmonary fibrosis, and gout who was admitted with acute on chronic hypoxic respiratory failure secondary to tension pneumothorax. 1. Acute on chronic hypoxemic respiratory failure secondary to L tension pneumothorax with possible acute heart failure. -etiology like spontaneous bleb rupture in history of COPD - Chest tube placed in the ER with re-expansion and improved respiratory status, trial of water seal, and pneumothorax increased, so back to suction, then improved and removed on 01/16 - CT on 01/17 showed pneumothorax and discussed with general surgery who recommended against reinserting chest tube as patient is not having worse hemodynamic or respiratory symptoms, and discussing case with thoracic surgery. Did discuss case with thoracic surgery at [facility] who agreed with not reinserting chest tube if patient continued to remain stable, monitor symptoms, did state that patient has risk of injury to lung due to COPD blebs and possibility of puncture - Continue to wean supplemental oxygen, usually now on home dose of 4L O2 -? Last TTE appears to be from 05/2020 which showed EF 55-60% Mod-severe pulmonary hypertension.? Underwent pulmonary arteriography on 01/10 to assess suitability for surgery according to documentation. Showed chronic thromboembolic disease bilaterally. Repeat ECHo shows estimated RVSP of at least 86 which is worse than prior - continue to trial slow diuresis, restart home torsemide - continue home medications, replace with formulary where necessary -started antibiotics with zosyn, azithro, stopped zosyn and switched to ceftriaxone -MRSA negative, so no vanco -ordered for steroids 2. R lung mass -concerning for lung cancer -will need outpatient referral for follow up 3. history of bilateral PE, COPD ?- continue apixaban 4. History of gout ?- no flare symptoms. ?- continue allopurinol 5. possible acute heart failure, diastolic ?- TTE as above continue with gentle diuresis Code: Full, surrogate is patient's spouse Dispo: Admit as inpatient as his stay is expected to exceed 2 midnights DVT:? On apixaban Time Spent With Patient Critical Care time: I spent a total of [] minutes of critical care time on this patient's care today; this time is exclusive of procedural time. Quality VTE Deep Vein Thrombosis/Pulmonary Embolism Present on Admission: No
[2021-01-17] MEDS: SENNOSIDES 8.6 MG TABLET 17.2 MG PO (21:12)
[2021-01-17] MEDS: MELATONIN 3 MG TABLET 6 MG PO (21:12)
--- NOTE | 2021-01-17 23:03 | PC.NURSE ---
Addendum entered by Nova Rodriguez R.N. 01/17/21 23:29: Dr. Arias contacted. Per his order, chest tube site left open to air for release of pressure. Pt continues to breathe without any signs of distress. Discussed with him the possibility of needing a chest tube reinserted if respiratory distress is to develop. He confirmed that he would want chest tube and/or other necessary interventions. Contacted Dr. Mcginnis in ED to apprise of situation; she is aware. Original Note: Shift: Report received care assumed 1530. Pt A&Ox4, VSS, on 2-3 LNC. Denies pain. Crepitus auscultated. Between 2214 and 2244, pt. c/o dressing at CT site puffing up with air. Dressing taken down, noted that occlusive portion of dressing had slipped off the insertion site. Occlusive dressing replaced, new dressing immediately puffed up again. Stat CXR ordered.
--- NOTE | 2021-01-17 23:04 | DI.RAD.S_ITS ---
PROCEDURE: XR CHEST 1V INDICATIONS: increased oxygen needs TECHNIQUE: One view of the chest was acquired. COMPARISON: [facility], CT, CT CHEST WO CON, 01/17/2021, 9:36. [facility], CR, XR CHEST 1V, 01/17/2021, 7:19. FINDINGS: Surgical changes and devices: None. Lungs and pleura: There is a persistent small left apical pneumothorax which appears similar in size to the prior study. No definite rightward mediastinal shift or inferior depression of the left hemidiaphragm to suggest tension. There are small bilateral pleural effusions. Increased bibasilar opacities are demonstrated consistent with atelectasis or consolidation. There is hyperinflation of the lungs with flattening of the hemidiaphragms compatible with COPD. Mediastinum: A large hiatal hernia is redemonstrated. Heart size is normal. Bones and chest wall: No suspicious bony lesions. Extensive subcutaneous emphysema redemonstrated within the left chest wall. IMPRESSION: 1. Persistent small left pneumothorax, similar in size to the prior study. No definite evidence of tension. 2. Increased bibasilar opacities consistent with atelectasis or consolidation. 3. Small bilateral pleural effusions. 4. Extensive left-sided subcutaneous emphysema redemonstrated. Dictated by: Cresencio Dacosta M.D. on 01/17/2021 at 23:48 Approved by: Cresencio Dacosta M.D. on 01/17/2021 at 23:52
[2021-01-18] VITALS (8 sets, daily range): BP systolic 103–111; BP diastolic 58–62; PULSE 63–74; RESP 15–20; TEMP 36.4–36.9; O2SAT 94–100
[2021-01-18 05:44] LABS: Hemoglobin 13.7 g/dL (13.5-17.5); Mean Corpuscular HGB Conc 32.7 % (30-36); Mean Corpuscular Hemoglobin 31.7 PG (26-34); Mean Corpuscular Volume 96.9 fL (80-100); Platelet Count 195 X10^3/uL (150-400); Red Blood Cell Count 4.34 X10^6/uL (4.5-5.9); Red Cell Distribution Width 14.2 % (11.6-14.8); White Blood Cell Count 7.9 X10^3/uL (4.5-11.0)
[2021-01-18 05:55] LABS: BUN Creatinine Ratio 28.7 (6-22); Blood Urea Nitrogen 31 mg/dL (9-20); Calcium 9.3 mg/dL (8.4-10.2); Carbon Dioxide 33 mmol/L (22-32); Chloride 99 mmol/L (98-107); Estimated Glomerular Filt Rate > 60.0 mL/min (>60); Glucose 113 mg/dL (80-110); HEMOLYSIS < 15 (0-50); Potassium 4.3 mmol/L (3.4-5.1); Sodium 137 mmol/L (137-145)
[2021-01-18] MEDS: FUROSEMIDE 100 MG/10 ML VIAL 60 MG IV (08:31)
[2021-01-18] MEDS: allopurinoL 100 MG TABLET PO (08:32)
[2021-01-18] MEDS: APIXABAN 5 MG TABLET PO (08:32)
[2021-01-18] MEDS: polyethylene glycoL 3350 17 GM POWD.PACK PO (08:33)
[2021-01-18] MEDS: predniSONE 20 MG TABLET 40 MG PO (08:33)
[2021-01-18] MEDS: AZITHROMYCIN 250 MG TABLET 500 MG PO (08:33)
[2021-01-18] MEDS: ALBUTEROL/IPRATROPIUM 3 ML AMPUL INH (08:58)
--- NOTE | 2021-01-18 11:22 | PT.IPTN ---
Current Diagnoses Spontaneous tension pneumothorax (01/13/21) Acute and chronic respiratory failure with hypoxia (01/13/21) Physical Therapy Treatment Note M2 PT-IP Current Condition Start: 01/16/21 08:56 Freq: NEEDED Status: Active Protocol: Document 01/16/21 08:56 [facility] (Rec: 01/16/21 09:06 [facility] [id number]) Physical Therapy Current Condition Current Condition Evaluation Date 01/16/21 Treatment Diagnosis weakness, acute on chronic hypoxemic respiratory failure M3 PT-IP Subjective Start: 01/16/21 08:56 Freq: NEEDED Status: Active Protocol: Document 01/18/21 10:58 [facility] (Rec: 01/18/21 12:28 [facility] [id number]) Subjective Physical Therapy Visit Type Type Treatment Note Visit Start Time 10:58 Visit Stop Time 11:22 Total Visit Minutes 24 Notes Pt is off for chest tube. presents during session Number of DINING ROOM HELPER Visits 1 Physical Therapy Visit Comments Patient Comments Pt agreeable to PT Patient Goals return home M4 PT-IP Mobility and Gait Start: 01/16/21 08:56 Freq: NEEDED Status: Active Protocol: Document 01/18/21 10:58 [facility] (Rec: 01/18/21 12:28 [facility] [id number]) PT-Bed Mobility Assessment Supine to Sit Supine to Sit Standby Assistance,Head of Bed Elevated Scooting Scooting to Edge of Bed Standby Assistance PT-Transfer Assessment Sit to and From Stand Sit to and from Stand Contact Guard Assistance,Use of Upper Extremities Equipment Transfer Assistive Device None,Gait Belt Transfers Transfer Destination Toilet Transfer Technique pt ambulated w/o AD Transfer Ability Level of Assist Contact Guard Assistance Comments Mobility Comments Pt in bed upon arrival from PT on 3L O2. Pt SBA for sup<>sit w/ HOB elevated and SBA for scooting to EOB. Pt sit<>stand CGA w/o AD and maintained standing balance while using urinal. Pts O2 decreased from 99 to 93% on 3L, increased to 4L O2 for mobility. Pt then ambulated ~10 ft to toilet to attempt BM but unable. Pt then agreen to further ambulation in room. Pt ambulated ~50 ft in room w/o AD and CGA. Pt has flexed trunk and screased stride and foot clearance. Denied fatigue or SOB. Pt then stand<>sit in chair CGA. O2 decreased back to 3L and monitored for 1 min, at 99-100 %. Pt left in chair w/ all needs in reach and in room. Gait Assessment Gait Gait Assistance Required: Contact Guard Assist Distance (Feet) 60 Assistive Devices Orthotic/Prosthetic Devices or Brace: No Gait Deviations General Gait Pattern Decreased Stride Length, Decreased Feet Clearance, Flexed Trunk Factors Limiting Gait Function Factors Limiting Gait Function Decreased Activity Tolerance, Decreased Strength,Pain,Poor Balance Comments Gait Comments Please refer to mobility section for details. PT-Balance Assessment Sitting Balance and Reactions Static Sitting Balance Ability Good Dynamic Sitting Balance Ability Good Standing Balance and Reactions Static Standing Balance Ability Fair Dynamic Standing Balance Ability Fair M5 PT-IP Objective Assessments Start: 01/16/21 08:56 Freq: NEEDED Status: Active Protocol: Document 01/16/21 08:56 [facility] (Rec: 01/16/21 09:06 [facility] [id number]) Orientation Orientation/Cognition Level of Alertness Alert Safety Awareness Understands Safety Issues Memory Description No Deficits Noted Strength Lower Extremity Strength Hip 4/5 Knee 4/5 Ankle 4/5 M6 PT-IP Treatment Start: 01/16/21 08:56 Freq: NEEDED Status: Active Protocol: Document 01/18/21 12:28 [facility] (Rec: 01/18/21 12:28 [facility] [id number]) Physical Therapy Treatment Education Education Provided Safety M7 PT-IP Assessment and Plan Start: 01/16/21 08:56 Freq: NEEDED Status: Active Protocol: Document 01/18/21 10:58 [facility] (Rec: 01/18/21 12:28 [facility] [id number]) PT Summary Assessment and Plan Potential Rehabilitation Potential Good Status of Condition at Evaluation Stable Summary Impairments Pain,Strength,Balance,Bed Mobility,Transfers,Activity Tolerance Assessment Summary Pt had improved tolerance for activity today and was able to ambulate ~60 ft total w/ CGA on 4L O2. SBA for bed mobility , CGA for transfers and ambulation w/o AD. Pt denied SOB or fatigue throughout treatment. Pt will benfit from continued skilled rehab to further improve activity tolerance. Goals Bed Mobility Goal Independent Transfer Goal Independent Gait Goal Independent Gait Distance 150ft Days to Meet Goals 6 Frequency of Treatment Frequency Of Treatment Once a Day Treatment Plan Physical Therapy Treatment Plan Bed Mobility Training,Transfer Training,Gait Training, Therapeutic Exercise,Balance Retraining,Neuromuscular Re-ed ,Manual Therapy Weight Bearing Status Weight Bearing Status Full Weight Bearing Recommendations To Nursing Amount of Assist Needed Standby Assistance Discharge Recommendations PT Discharge Recommendations Home with Assistance,Home Health Equipment Needed for Home Before possible 4WW if needs seat for Discharge activity tolerance Transportation Needs at Discharge Private Vehicle
--- NOTE | 2021-01-18 11:58 | P.PN_ITS ---
Subjective Subjective Date Patient Seen: 01/18/21 Interval history: Patient with chest wall emphysema and noises but is base line stable on hemodynamics and oxygenation Exam Vital Signs (past 8 hours): - 01/18/21 04:00 01/18/21 06:53 01/18/21 07:59 Temperature 98.4 F 97.8 F Pulse Rate 63 71 Respiratory Rate 16 17 Blood Pressure 108/60 103/58 L Pulse Oximetry 100 94 97 01/18/21 08:59 01/18/21 10:00 01/18/21 11:41 Temperature 98 F Pulse Rate 74 69 Respiratory Rate 20 15 Blood Pressure 109/58 L Pulse Oximetry 97 99 100 Fraction of Inspired Oxygen 38 Oxygen Delivery Method Nasal Cannula Oxygen Flow Rate 5 Objective Labs Result Diagrams: 01/18/21 05:03 01/18/21 05:03 Labs: Laboratory Results - last 24 hr 01/18/21 01/18/21 05:03 05:03 WBC 7.9 RBC 4.34 L Hgb 13.7 Hct 42.0 MCV 96.9 MCH 31.7 MCHC 32.7 RDW 14.2 Plt Count 195 Sodium 137 Potassium 4.3 Chloride 99 Carbon Dioxide 33 H BUN 31 H Creatinine 1.08 Estimated GFR > 60.0 BUN/Creatinine Ratio 28.7 H Glucose 113 H Calcium 9.3 PFSH Medical History Durán's esophagus Constipation COPD (chronic obstructive pulmonary disease) Edema Emphysema of lung Former smoker GERD (gastroesophageal reflux disease) Gout Hard of hearing Hyperglycemia Impaired vision Prostate enlargement Pulmonary embolism, bilateral Raynaud phenomenon Right upper lobe pulmonary nodule Sleep apnea with use of continuous positive airway pressure (CPAP) Surgical History H/O knee surgery Family History Father Heart disease Brother COPD (chronic obstructive pulmonary disease) Social History marital status: household members: spouse Smoking Status: Former smoker alcohol intake: never substance use type: does not use Assessment & Plan Assessment & Plan narrative: Agree w advice of thorasic surgeon to follow symptoms. patient ok to discharge home with VNS. No clinical signs of tension PTX. Has clinical air leak into subcutaneous tissue without overall compromise. Should resolve over time with improved nutrition. Plan: high protein diet and MVI. Can follow up Dr. Octavio Caballero, [facility] surgery at [facility] Time Spent With Patient Critical Care time: I spent a total of [] minutes of critical care time on this patient's care today; this time is exclusive of procedural time. Quality VTE Deep Vein Thrombosis/Pulmonary Embolism Present on Admission: No
--- NOTE | 2021-01-18 13:16 | PC.NURSE ---
Addendum entered by Barbie Delgado R.N. 01/18/21 14:15: Patient given discharge information regarding wound care to chest tube site, s/s of worsening condition, f/u appointment with PCP. Patient and verbalized understanding. Original Note: Patient up to restroom with SBA, voiding without complication. Denies dizziness, lightheadedness, SOB or increased WOB with activity. Currently on 4L NC, 95-97%. Dsg replaced on L torso d/t leaking serous fluid from chest tube site. Patient tolerated. Both RUE PIVs removed for pending discharge. Patient tolerated. Patient off tele for discharge, remains on continuous pulse ox until discharge. Patient denies belongings in pharmacy or in safe. Denies further needs at this time. Patient will discharge via wheelchair with present.
--- NOTE | 2021-01-18 15:38 | P.DS_ITS ---
History of Present Illness History of Present Illness Chief complaint: SOB Narrative: Per Dr. Coombs: his is an 80-year-old male with a past medical history of COPD/idiopathic pulmonary fibrosis with chronic hypoxic respiratory failure and gout.? He has a recent history of bilateral pulmonary embolism and lymphadenopathy for which he underwent biopsies which were considered benign.? He had a recent right heart catheterization and lung angiogram per outpatient review, probably due to pulmonary hypertension.? I do not have available records at this time but suspect that this was in part due to pulmonary hypertension probably from his bilateral pulmonary emboli.? He was in his usual state of health until he woke up this morning with left-sided chest pain and worsening shortness of breath.? He was initially hypoxic in the 60s to 70son 4L.? Chest x-ray in the emergency room showed a tension pneumothorax.? Initial needle decompression was unsuccessful in a chest tube was placed.? Shortly after chest tube there was re- expansion of his pneumothorax and the patient's hypoxia improved somewhat.? However, he is currently requiring heated high-flow in order to maintain oxygen saturations above 90%, though he is currently weaning down at this time. Laboratory evaluation showed an unremarkable CBC, INR was slightly elevated at 1.5, but otherwise unremarkable coagulation studies.? Chemistries revealed a creatinine of 1.31, with an apparent baseline of 1.0 with no significant electrolyte abnormalities.? His glucose was 180.? Troponin was negative.? ProBNP was 775.? Procalcitonin was 0.05.? His initial chest x-ray did show a tension pneumothorax.? With re-expansion there does appear to be some possible vascular congestion.? An echocardiogram from May at [facility] for his PE showed an EF of 55- 60% with moderate to severe pulmonary hypertension. Discharge Providers Provider Date of admission: 01/13/21 10:28 Discharge Date: 01/18/21 Primary care physician: Chiki Feliciano MD Consults: 01/13/21 08:56 Consult to Respiratory Therapy Evaluate & Treat Comment: Physician Instructions: Evaluate and treat 01/13/21 13:24 Consult to Respiratory Therapy Evaluate & Treat Comment: Physician Instructions: Evaluate and treat 01/13/21 13:26 Consult to General Surgery Routine Comment: Consulting Provider: Ghazal Medellin Reason for consultation: chest tube, pneumothorax 01/15/21 08:57 Consult to Tele-tiltrotor crew chief Routine Comment: Consulting Provider: [place] [employer] Reason for consultation: [employer] Salesperson services 01/15/21 20:46 Consult to Physical Therapy Evaluate & Treat Comment: Physician Instructions: Evaluate and Treat Discharge provider: Kendrick Moreno MD Summary Hospital Course Discharge Diagnosis: 1. Acute on chronic hypoxemic respiratory failure secondary to L tension pneumothorax 2. Acute on chronic diastolic heart failure and pulmonary hypertension 3. Right lung mass, larger compared to previous CT 4. COPD 5. History of bilateral PE 6. Gout Hospital Course: Mr. Rea was admitted to the hospital after being found to have a left tension pneumothorax and needing a chest tube. Etiology is probable from a spontaneous bleb rupture given his COPD history. He had reexpansion of the lung, but this was not complete. He did return to his baseline respiratory status, requiring 4L of oxygen. He was also slightly volume overloaded and diuresed. Initially he was covered for possible pneumonia, but this was discontinued as further workup showed no evidence of pneumonia. His chest tube was removed and he remained stable. He continued to have left pneumothorax. This was discussed with general surgery and also thoracic surgery at [facility]. They were in agreement of avoiding reinsertion of chest tube given high risk of lung injury. They recommended reconsidering if his respiratory symptoms worsened. He was monitored without the chest tube and remained stable and was able to be discharged home. Of note he did have quite significant subcutaneous emphysema in his side and back, and this is expected to resolved in the next weeks. He had an mass noted in his right lung of 2.8cm, which was larger than our last CT noted at 1.4cm. 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 This was relayed to him, and he stated he was aware of this finding. Exam Vital Signs (past 8 hours): Fraction of Inspired Oxygen 38 Oxygen Delivery Method Nasal Cannula Oxygen Flow Rate 5 Narrative Exam Narrative: GENERAL APPEARANCE:? Chronically ill-appearing male in no acute distress CHEST: chest tube removed, significant stable crepitus over left axillary ribs and into back LUNGS: coarse breath sounds bilaterally CARDIOVASCULAR: regular rate and rhythm without any murmurs ABDOMEN: Soft and nontender with normal bowel sounds. No ascites was noted. EXTREMITIES: No edema. Objective Labs Result Diagrams: 01/18/21 05:03 01/18/21 05:03 [facility] Medical History Durán's esophagus Constipation COPD (chronic obstructive pulmonary disease) Edema Emphysema of lung Former smoker GERD (gastroesophageal reflux disease) Gout Hard of hearing Hyperglycemia Impaired vision Prostate enlargement Pulmonary embolism, bilateral Raynaud phenomenon Right upper lobe pulmonary nodule Sleep apnea with use of continuous positive airway pressure (CPAP) Surgical History H/O knee surgery Family History Father Heart disease Brother COPD (chronic obstructive pulmonary disease) Social History marital status: household members: spouse Smoking Status: Former smoker alcohol intake: never substance use type: does not use Discharge Plan Discharge Plan Patient Disposition: Home Provider Discharge Comment: Mr. Rea came in to the hospital with trouble breathing. He was found to have a collapsed lung (pneumothorax). He had a chest tube placed that helped expand his lung. He does have some slight air around the lung. We did discuss with general surgery and thoracic surgery who recommended not to try to remove that amount of air due to risk of lung injury. He felt much improved. He did not have a pneumonia or COPD exacerbation. He did have a little fluid overload and was given medication to remove fluid. He should not use his CPAP for now going forward due to his collapsed lung. He should follow up with his primary doctor next week and repeat a chest xray next week to make sure his pneumothorax is not getting larger. Discharge orders & Medications Prescriptions: Continued omeprazole 20 mg capsule,delayed release(DR/EC) 20 mg PO BID Qty: 180 RF: 3 allopurinol 100 mg tablet See Rx Instructions .ROUTE .COMPLEX Qty: 90 RF: 0 colchicine 0.6 mg tablet 1.2 mg PO DAILY PRN (Reason: gout) Qty: 30 RF: 0 Eliquis 5 mg tablet 5 mg PO BID Qty: 180 RF: 3 Spiriva Respimat 2.5 mcg/actuation mist 2 puff inhalation DAILY Qty: 4 RF: 4 albuterol sulfate [ProAir HFA] 90 mcg/actuation Hfa Aerosol Inhaler 2 puff INHALATION Q4H PRN (Reason: Wheezing) RF: 0 torsemide 10 mg tablet 10 mg PO DAILY RF: 0 Follow up/Referrals: Chiki Feliciano MD [Primary Care Provider] - Diet/Activity/Treatments Diet: Diet as Tolerated Discharge Data Primary Care Provider: Chiki Feliciano Quality VTE Deep Vein Thrombosis/Pulmonary Embolism Present on Admission: No MIPS - DC The patient has current or prior documentation of left ventricular ejection fraction (LVEF) less than 40%, or moderate or severely depressed left ventricular systolic function.: No
== END 2021-01-18 14:05 | disposition home or self-care (01) | DRG 199 ==
LOC: ED 09:14 → AC 10:29 → ICU 12:53
PROVIDERS: Internal Medicine; Admitting Provider Internal Medicine; Emergency Provider Emergency Medicine; PCP Family Medicine; Referring Provider Emergency Medicine; Visit Provider Internal Medicine
DX: J93.0 Spontaneous tension pneumothorax (principal); J96.21 Acute and chronic respiratory failure with hypoxia; I50.33 Acute on chronic diastolic (congestive) heart failure; I27.82 Chronic pulmonary embolism; C34.31 Malignant neoplasm of lower lobe, right bronchus or lung; Z99.81 Dependence on supplemental oxygen; J98.2 Interstitial emphysema; M10.9 Gout, unspecified; J44.9 Chronic obstructive pulmonary disease, unspecified; I27.20 Pulmonary hypertension, unspecified; K21.9 Gastro-esophageal reflux disease without esophagitis; Z79.01 Long term (current) use of anticoagulants; Z87.891 Personal history of nicotine dependence; Z20.822 Contact with and (suspected) exposure to COVID-19
CPT/HCPCS: 32551; 36415; 36600; 71045; 71250; 80048; 80053; 82550; 82805; 83605; 83735; 83880; 84145; 84484; 85025; 85027; 85610; 85730; 87040; 87070; 87077; 87205; 87635; 87797; 93005; 93306; 94640; 94660; 94762; 96374; 96375; 97110; 97116; 97161; 97530; 99152; 99231; 99232; 99285; 99291; 99292; C9803; J0696; J1940; J2270; J2405; J2543; J2704; J2930; J7613

== ENCOUNTER → 2021-01-23 13:11 | Outpatient (CLI) | payer MEDICARE, SELFPAY ==
[2020-07-11 10:41] VITALS: O2SAT 97
[2021-01-13 10:30] VITALS: PULSE 91; RESP 39
[2021-01-13 12:51] VITALS: BMI 22.8
--- NOTE | 2021-01-23 13:12 | DI.RAD.S_ITS ---
PROCEDURE: XR CHEST 2V INDICATIONS: Follow-up pneumothorax TECHNIQUE: 2 views of the chest were acquired. COMPARISON: [facility], CT, CT CHEST WO CON, 01/17/2021, 9:36. [facility], CR, XR CHEST 1V, 01/17/2021, 23:21. FINDINGS: Surgical changes and devices: None. Lungs and pleura: Persistent small left apical pneumothorax. Coarsened interstitial markings with upper lung zone lucency, compatible with emphysematous change. Blunting of the costophrenic sulci, which may reflect atelectasis and/or pleural fluid. Mediastinum: The cardiac silhouette is upper limits of normal. Retrocardiac density, compatible with the patient's no hiatal hernia. Bones and chest wall: No suspicious bony abnormalities. Soft tissues appear unremarkable. IMPRESSION: No significant interval change. Dictated by: Darci Herman M.D. on 01/23/2021 at 13:39 Approved by: Darci Herman M.D. on 01/23/2021 at 13:46
== END ==
PROVIDERS: PCP Family Medicine; Referring Provider Family Medicine; Visit Provider Family Medicine
DX: J93.0 Spontaneous tension pneumothorax (principal)
CPT/HCPCS: 71046

== ENCOUNTER 2021-06-03 17:00 | Emergency (ER) | payer MEDICARE, SELFPAY ==
[2020-07-11 10:41] VITALS: O2SAT 97
[2021-01-13 10:30] VITALS: PULSE 91; RESP 39
[2021-01-13 12:51] VITALS: BMI 22.8
[2021-06-03] VITALS (14 sets, daily range): BP systolic 85–144; BP diastolic 54–74; PULSE 100–112; RESP 23–36; O2SAT 85–98; BMI 22.8
--- NOTE | 2021-06-03 | DI.RAD.S_ITS ---
PROCEDURE: XR CHEST 1V INDICATIONS: CHEST TUBE TECHNIQUE: One view of the chest was acquired. COMPARISON: [facility], , XR CHEST 1V, 06/03/2021, 17:00. FINDINGS: Endotracheal tube is in appropriate and unchanged position. Interval placement of left apical chest tube which appears to be in appropriate position. The left lung appears re-expanded with no greater than trace pneumothorax visible on the current study. Mediastinal shift seen previously has resolved. Mixed interstitial and airspace opacity in the right mid lung is indeterminate. IMPRESSION: Interval placement of left apical chest tube with re-expansion of the left lung and no greater than trace pneumothorax visualized currently. Dictated by: Jalen Lauren M.D. on 06/03/2021 at 17:34 Approved by: Jalen Lauren M.D. on 06/03/2021 at 17:36
--- NOTE | 2021-06-03 17:02 | DI.RAD.S_ITS ---
PROCEDURE: XR CHEST 1V INDICATIONS: Chest pain TECHNIQUE: One view of the chest was acquired. COMPARISON: [facility], CR, XR CHEST 2V, 01/23/2021, 13:09. [facility], CR, XR CHEST 1V, 01/17/2021, 23:21. FINDINGS: There is a large left pneumothorax with mild-moderate tracheo-mediastinal shift from left to right. The right pleural space appears clear. Chronic interstitial coarsening in both lungs appears similar to comparison studies. Endotracheal tube terminates within the thoracic trachea in appropriate position. IMPRESSION: Large left pneumothorax with mild-moderate [id number] tracheo-mediastinal shift Dictated by: Jalen Lauren M.D. on 06/03/2021 at 17:14 Approved by: Jalen Lauren M.D. on 06/03/2021 at 17:15
[2021-06-03] MEDS: ALBUTEROL/IPRATROPIUM 3 ML AMPUL INH ×2 (17:45→18:50)
[2021-06-03 17:59] LABS: Add Manual Diff / Slide Review NO; Basophils Absolute Auto 100 /uL (0-100); Basophils Percent Auto 0.7 % (0-2); Eosinophils Absolute Auto 100 /uL (0-450); Eosinophils Percent Auto 1.7 % (2-4); Lymphocytes Absolute Auto 1500 /uL (1100-4500); Lymphocytes Percent Auto 18.7 % (25-40); Mean Corpuscular HGB Conc 32.6 % (30-36); Mean Corpuscular Hemoglobin 31.5 PG (26-34); Mean Corpuscular Volume 96.6 fL (80-100); Monocytes Absolute Auto 500 /uL (0-900); Monocytes Percent Auto 6.5 % (3-14); Neutrophils Absolute Auto 5700 /uL (1500-7000); Neutrophils Percent Auto 72.4 % (50-75); Platelet Count 171 X10^3/uL (150-400); Red Blood Cell Count 4.14 X10^6/uL (4.5-5.9); Red Cell Distribution Width 14.9 % (11.6-14.8); White Blood Cell Count 7.8 X10^3/uL (4.5-11.0)
[2021-06-03 18:03] LABS: INR 2.3 (0.9-1.3); Prothrombin Time 25.7 SECONDS (10.1-12.7)
[2021-06-03 18:06] LABS: PTT Partial Thromboplastin Tim 34 SECONDS (26.4-36.2)
--- NOTE | 2021-06-03 18:07 | DI.RAD.S_ITS ---
PROCEDURE: XR CHEST 1V INDICATIONS: post central line TECHNIQUE: One view of the chest was acquired. COMPARISON: [facility], , XR CHEST 1V, 06/03/2021, 17:13. FINDINGS: Left apically chest tube appears to have been slightly repositioned, although this is not definitive. Small left apicolateral pneumothorax is not significantly changed. Tiny amount of subcutaneous emphysema adjacent to the left chest wall. The remaining findings are unchanged. IMPRESSION: No significant interval change. Dictated by: Jalen Lauren M.D. on 06/03/2021 at 18:32 Approved by: Jalen Lauren M.D. on 06/03/2021 at 18:33
[2021-06-03 18:10] LABS: Alanine Aminotransferase 39 IU/L (<50); Albumin 3.3 g/dL (3.5-5.0); Albumin Globulin Ratio 1.1 (1.0-2.8); Alkaline Phosphatase 63 U/L (38-126); Aspartate Aminotransferase 68 IU/L (17-59); BUN Creatinine Ratio 26.4 (6-22); Bilirubin Total 1.1 mg/dL (0.2-1.3); Blood Urea Nitrogen 29 mg/dL (9-20); Calcium 7.6 mg/dL (8.4-10.2); Carbon Dioxide 22 mmol/L (22-32); Chloride 108 mmol/L (98-107); Creatine Kinase 93 U/L (55-170); Estimated Glomerular Filt Rate > 60.0 mL/min (>60); Globulin 2.9 g/dL (1.7-4.1); Glucose 200 mg/dL (80-110); HEMOLYSIS 20 (0-50); Lipase 33 U/L (23-300); Magnesium 2.2 mg/dL (1.6-2.3); Potassium 3.6 mmol/L (3.4-5.1); Sodium 135 mmol/L (137-145); Total Protein 6.2 g/dL (6.3-8.2)
[2021-06-03 18:21] LABS: Troponin I 0.017 ng/mL (0.01-0.034)
--- NOTE | 2021-06-03 18:22 | PM.PROC.1 ---
Procedures Date/Time Date of procedure: 06/03/21 Time of procedure: 18:23 Central Line Placement MD prep: mask, gown and gloves Central line prep: Chlorhexidine scrub Local anesthesia used: lidocaine 1% Amount of anesthesia used (ml): 8 Additional comments: A left subclavian central line was placed under sterile conditions. A left chest tube had already been inserted by the emergency department prior to placement of the central line. The left subclavian vein was cannulated via the Seldinger technique on the 1st attempt. The triple-lumen catheter had been primed prior to insertion and was inserted over the wire without resistance. All the ports avery and flushed easily. Sterile caps were placed. A chest x-ray showed good position of the central line with no pneumothorax.
--- NOTE | 2021-06-03 18:28 | PM.CN ---
History of Present Illness Consult details Date Patient Seen: 06/03/21 Time Patient Seen: 18:28 Chief complaint: Respiratory Distress Narrative: History is gathered via review of this paced chart is he is currently intubated and unable to participate in a subjective exam. This is an 80-year-old male with a past medical history of COPD/idiopathic pulmonary fibrosis with chronic hypoxic respiratory failure and gout.? He has a history of bilateral pulmonary embolism and lymphadenopathy for which he underwent biopsies which were considered benign per my review last admission.? He had a right heart catheterization and lung angiogram per outpatient review, probably due to pulmonary hypertension in the past and per ER report recently had pulmonary stenting done at [facility].? I do not have available records at this time but suspect that this was in part due to pulmonary hypertension probably from his bilateral pulmonary emboli. He had a code blue in the ER, due to likely tension pneumothorax which was resolved due to chest tube. He is intubated currently. I recommend transfer to higher level of care at this time. given his advanced prior lung disease and recent reported interventions. Meds Home Medications and Allergies Home Medications Medication Instructions Recorded Confirmed Type albuterol sulfate 90 mcg/actuation 2 puff INHALATION Q4H PRN 04/25/19 01/25/21 History aerosol inhaler (ProAir HFA) omeprazole 20 mg capsule,delayed 20 mg PO BID #180 cap 08/03/20 01/25/21 Rx release colchicine 0.6 mg tablet 1.2 mg PO DAILY PRN #30 tab 11/06/20 01/25/21 Rx apixaban 5 mg tablet (Eliquis) 5 mg PO BID #180 tab 11/30/20 01/25/21 Rx tiotropium bromide 2.5 2 puff INHALATION DAILY #4 g 12/06/20 01/25/21 Rx mcg/actuation mist for inhalation (Spiriva Respimat) torsemide 10 mg tablet 10 mg PO DAILY 01/13/21 01/25/21 History allopurinol 100 mg tablet See Rx Instructions .ROUTE 05/06/21 Rx .COMPLEX #90 tab Allergies Allergy/AdvReac Type Severity Reaction Status Date / Time No Known Drug Allergies Allergy Verified 01/25/21 14:23 Review of Systems Review of Systems Narrative: unable to perform given patient's mental status Exam Vital Signs (past 8 hours): - 06/03/21 16:48 Pulse Oximetry 94 Fraction of Inspired Oxygen 100 Oxygen Delivery Method Ambu Bag Oxygen Flow Rate 15 Narrative Exam Narrative: intubated, sedated. chest tube in place. General surgery currently placing central line Objective Labs Result Diagrams: 06/03/21 17:51 06/03/21 17:51 Labs: Laboratory Results - last 24 hr 06/03/21 06/03/21 17:51 17:51 PT 25.7 H INR 2.3 H APTT 34 Sodium 135 L Potassium 3.6 Chloride 108 H Carbon Dioxide 22 BUN 29 H Creatinine 1.10 Estimated GFR > 60.0 BUN/Creatinine Ratio 26.4 H Glucose 200 H Calcium 7.6 L Magnesium 2.2 Total Bilirubin 1.1 AST 68 H ALT 39 Alkaline Phosphatase 63 Total Creatine Kinase 93 CK-MB (CK-2) TNP CK-MB (CK-2) Rel Index TNP Troponin I 0.017 Total Protein 6.2 L Albumin 3.3 L Globulin 2.9 Albumin/Globulin Ratio 1.1 [facility]ase 33 [facility] Medical History Durán's esophagus Constipation COPD (chronic obstructive pulmonary disease) Edema Emphysema of lung Former smoker GERD (gastroesophageal reflux disease) Gout Hard of hearing Hyperglycemia Impaired vision Prostate enlargement Pulmonary embolism, bilateral Raynaud phenomenon Right upper lobe pulmonary nodule Sleep apnea with use of continuous positive airway pressure (CPAP) Surgical History H/O knee surgery Family History Father Heart disease Brother COPD (chronic obstructive pulmonary disease) Social History marital status: household members: spouse Tobacco & Substance Use Smoking Status: Former smoker alcohol intake: never substance use type: does not use Assessment & Plan Assessment & Plan narrative: He had a code blue in the ER, due to likely tension pneumothorax which was resolved due to chest tube. He is intubated currently. I recommend transfer to higher level of care at this time given his advanced prior lung disease and recent reported interventions. 1. Acute on chronic respiratory failure with hypoxia 2. Tension pneumothroax, improved with chest tube 3. bilateral pulmonary emboli, chronic 4. COPD 5. Idiopathic pulmonary fibrosis Unable to obtain code status, but previously full code. By the time I have completed this note, patient reportedly being airlifted to higher level facility. Time Spent With Patient Critical Care time: I spent a total of [] minutes of critical care time on this patient's care today; this time is exclusive of procedural time.
[2021-06-03 18:35] LABS: COVID19 -Nasal RAPID Negative (Negative)
[2021-06-03 19:20] LABS: HCO3 ABG 21 mmol/L (22-26); PCO2 ABG 41.1 mmHg (35-45); PO2 ABG 162 mmHg (80-100); TCO2 ABG 22 mmol/L (21-31); pH ABG 7.31 (7.35-7.45)
[2021-06-03 19:21] LABS: Fractionated Inspired Oxygen 100; Oxygen Saturation ABG 99 % (95-100)
[2021-06-03] MEDS: PROTHROMBIN CPLX(PCC)4FACT 2,000 UNIT in ISOOSMOTIC VEHICLE 0 ML 489.6 ML IV (19:22)
[2021-06-03 19:23] LABS: Fractionated Inspired Oxygen 100; HCO3 ABG 22 mmol/L (22-26); Oxygen Saturation ABG 92 % (95-100); PCO2 ABG 54.7 mmHg (35-45); PO2 ABG 77 mmHg (80-100); TCO2 ABG 24 mmol/L (21-31); pH ABG 7.21 (7.35-7.45)
--- NOTE | 2021-06-03 19:47 | ED.SOB ---
HPI - SOB/Dyspnea General Chief Complaint: Shortness of Breath/Dyspnea Stated Complaint: Respiratory Distress Time Seen by Provider: 06/03/21 17:32 Source: EMS Mode of arrival: EMS Limitations: altered mental status and physical limitation History of Present Illness HPI Narrative: The patient has COPD. He is anticoagulated with Eliquis due to recent bilateral PEs. He was admitted here January 17 with a left pneumothorax, presumably due to his COPD and likely a bleb. He also appears to have pulmonary hypertension. More recently the patient has been in [facility] where he underwent balloon pulmonary angioplasty. He was discharged from yesterday. At home this afternoon he took shower. During the shower he developed acute dyspnea, he came out assure asking his to call 911. Paramedics arrived found him diaphoretic and hypoxic. O2 sats are in the 60s upon arrival even with a non-rebreather face mask. He can talk in short sentences only. He is diaphoretic and pale. According to his he has not been ill recently. He has had no fever. Further details unavailable due the patient's condition. Related Data Home Medications Medication Instructions Recorded Confirmed albuterol sulfate 90 mcg/actuation 2 puff INHALATION Q4H PRN 04/25/19 01/25/21 aerosol inhaler (ProAir HFA) torsemide 10 mg tablet 10 mg PO DAILY 01/13/21 01/25/21 Previous Rx's Medication Instructions Recorded omeprazole 20 mg capsule,delayed 20 mg PO BID #180 cap 08/03/20 release colchicine 0.6 mg tablet 1.2 mg PO DAILY PRN #30 tab 11/06/20 apixaban 5 mg tablet (Eliquis) 5 mg PO BID #180 tab 11/30/20 tiotropium bromide 2.5 2 puff INHALATION DAILY #4 g 12/06/20 mcg/actuation mist for inhalation (Spiriva Respimat) allopurinol 100 mg tablet See Rx Instructions .ROUTE 05/06/21 .COMPLEX #90 tab Allergies Allergy/AdvReac Type Severity Reaction Status Date / Time No Known Drug Allergies Allergy Verified 01/25/21 14:23 Review of Systems Review of Systems Narrative: Unavailable to the patient's critical illness. Patient History Medical History (Updated 06/03/21 @ 21:03 by Zane Renae MD) Durán's esophagus Constipation COPD (chronic obstructive pulmonary disease) Edema Emphysema of lung Former smoker GERD (gastroesophageal reflux disease) Gout Hard of hearing Hyperglycemia Impaired vision Pneumothorax, spontaneous, tension Prostate enlargement Pulmonary embolism, bilateral Raynaud phenomenon Right upper lobe pulmonary nodule Sleep apnea with use of continuous positive airway pressure (CPAP) Surgical History (Updated 06/03/21 @ 20:39 by Zane Renae MD) H/O chest tube placement H/O knee surgery Family History Father Heart disease Brother COPD (chronic obstructive pulmonary disease) Social History marital status: household members: spouse Smoking Status: Former smoker alcohol intake: never substance use type: does not use Smoking Status: Former smoker alcohol intake frequency: holidays/special occasions only Substance Use Type: does not use Exam Initial Vital Signs Initial Vital Signs: Vital Signs Pulse Oximetry 94 06/03/21 16:48 Const General: acute distress, frail appearing and ill appearing Nutritional Appearance: thin HENMT Head: normocephalic and atraumatic Face and sinus: normal facial exam Mouth: oral mucosae normal Throat: posterior oropharynx normal Eyes General: appearance normal, both eyes and all related structures Neck Neck: No JVD Chest Chest: normal inspection of the chest Resp Other: Tachypnea. Bilateral wheezes. Decreased breath sounds on the left. Hypoxia with O2 sats in the 60s despite supplemental oxygen. Cardio Rate: tachycardic Rhythm: regular rhythm Heart Sounds: S1 normal, S2 normal and no murmurs GI Inspection: normal to inspection Skin General: pallor Lesions: no lesions Rashes: no rashes Neuro General: patient alert, patient confused and other (Generalized weakness) Extrem General: no pedal edema Procedures Chest Tube Chest Tube 1: Chest Tube Location: left and mid axillary line Size of Tube (cm): 32 Chest Tube Prep: Yes betadine prep Local Anesthetic: other anesthetic (The patient was sedated/intubated.) Incision Made With: #10 blade Post Procedure: sutured to skin and sterile dressing applied Tube Drainage: none Post Procedure CXR?: Yes Patient Tolerated Procedure: No Progress: The patient went into a ED/cardiac arrest moments prior to the procedure. CPR was required. After appropriate expansion was left lung, pulses were re-established. Course Course Course Narrative: The patient was intubated by the sql server bi developer who brought him to the ER after arrival here. I administered propofol 50 mg, followed by succinylcholine 150 mg, prior to intubation with a 7.5 ETT. Tube placement was confirmed. Left pneumothorax was noted on the left side. The patients pulse was lost. He was in PEA. CPR was initiated. Needle decompression of the left chest was administered, there is no obvious relief. The chest tube was quickly in the left 5th intercostal space. There was an ir leak from the left hemothorax once incision was made. There was appropriate misting who the chest tube. O2 sats quickly improved. Pulses were re-established. Chest tube function was confirmed. Pulses were initially strong bounding. Blood is noted in his airways. He was section clear. His blood pressure dropped 50s, fluid resuscitation was given. Pressors were ordered, but not administered as his blood pressure return to greater than 100 systolic. O2 sats were maintained generally in the 90s range once intubation and chest tube were in place. There was an infiltrate in trait in the right middle lobe, suggesting aspiration versus active bleeding. Zosyn was given. The case was briefly discussed with our hospitalist at [facility], who concurred with efforts to have the patient return [facility]. I discussed the case with the information systems architect, Dr. Acharya, including my concern about apparent blood in the right middle lobe. We discussed the possibility of a CTA of the chest prior to transfer, amina Burgess was already present. Mom's later the patient dropped his O2 sats to 80s, his blood pressure dropped. A fair amount of blood was suctioned from his ETT. Once the ETT was cleared, blood pressure normalized, as it is O2 sats. There was no further effort to obtain the CTA. In the interim on-call surgery assisted in placing a left subclavian line. After consulting with Dr. Acharya again, Kcentra was given. Amina Burgess has blood products to transfuse if necessary en route. We proceeded with transfer. He has a normal sinus rhythm with systolic blood pressure greater than 100 and O2 sats 94% upon departure. Orders Ordered: ED Orders 06/03/21 17:02 XR chest 1V Stat EKG-12 Lead Stat Ventilator Order 06/03/21 17:39 Arterial Blood Gas Stat 06/03/21 17:51 Complete Blood Count AUTO DIFF Stat Comprehensive Metabolic Panel Stat Lipase Stat Magnesium Stat Partial Thromboplastin Time Stat Prothrombin Time INR Stat Troponin & CK Cardiac Panel Stat 06/03/21 18:05 COVID19 -Nasal swab/Pre-Proc Stat 06/03/21 18:07 Chest [XR chest 1V] Stat 06/03/21 19:03 Arterial Blood Gas Stat Fentanyl (Fentanyl 100 Mcg/2 Ml Inj) 50 mcg IV Q30MIN PRN PRN Reason: Agitation NOREPINEPHRINE BITARTRATE/D5W (Levophed) 4 mg in 250 mls @ 30 mls/hr IV TITRATE DUYEN; Protocol Fentanyl 1,000 mcg/ Dextrose 250 mls @ 10.15 mls/hr IV TITRATE DUYEN; Protocol Propofol (Propofol) 1,000 mg in 100 mls @ 3.48 mls/hr IV TITRATE DUYEN; Protocol Discontinued Medications Sodium Chloride (Normal Saline 0.9%) 1,000 mls @ 1,000 mls/hr IV BOLUS ONE Stop: 06/03/21 18:02 Sodium Chloride (Normal Saline 0.9%) 1,000 mls @ 1,000 mls/hr IV BOLUS ONE Stop: 06/03/21 18:35 Piperacillin Sod/Tazobactam (Sod 4.5 gm/ Sodium Chloride) 100 mls @ 200 mls/hr IV NOW ONE Stop: 06/03/21 17:49 Prothrombin Complex Concent ( Human) 2,000 unit/Miscellaneous 80 mls @ 489.6 mls/hr IV NOW ONE; Protocol Stop: 06/03/21 19:17 Last Infusion: 06/03/21 19:31 Dose: 0 unit/kg/min, 0 mls/hr Documented by: Admin: 06/03/21 19:22 Dose: 3 unit/kg/min, 489.6 mls/hr Documented by: LAYNE Vital Signs Vital signs: Vital Signs - 8 hr 06/03/21 16:48 06/03/21 18:28 06/03/21 18:30 Pulse Rate 104 H 100 H Respiratory Rate 25 H 23 Blood Pressure 85/54 L Pulse Oximetry 94 98 98 06/03/21 18:35 06/03/21 18:40 06/03/21 18:41 Pulse Rate 100 H 100 H 100 H Respiratory Rate 24 27 H 26 H Blood Pressure 97/56 L 97/54 L 101/55 L Pulse Oximetry 96 97 96 06/03/21 18:45 06/03/21 18:50 06/03/21 18:55 Pulse Rate 100 H 100 H 106 H Respiratory Rate 28 H 27 H 32 H Blood Pressure 107/60 110/62 123/63 Pulse Oximetry 94 93 89 L 06/03/21 18:59 06/03/21 19:00 06/03/21 19:05 Pulse Rate 112 H 112 H 105 H Respiratory Rate 36 H 36 H 29 H Blood Pressure 132/63 123/61 Pulse Oximetry 85 L 87 L 96 06/03/21 19:10 Pulse Rate 106 H Respiratory Rate Blood Pressure Pulse Oximetry 94 MDM - SOB/Dyspnea Lab Data Result diagrams: 06/03/21 17:51 06/03/21 17:51 Labs: Lab Results 06/03/21 06/03/21 06/03/21 Range/Units 17:39 17:51 17:51 WBC 7.8 (4.5-11.0) X10^3/uL RBC 4.14 L (4.5-5.9) X10^6/uL Hgb 13.0 L (13.5-17.5) g/dL Hct 40.0 L (41-53) % MCV 96.6 (80-100) fL MCH 31.5 (26-34) PG MCHC 32.6 (30-36) % RDW 14.9 H (11.6-14.8) % Plt Count 171 (150-400) X10^3/uL Neut % (Auto) 72.4 (50-75) % Lymph % (Auto) 18.7 L (25-40) % [place] % (Auto) 6.5 (3-14) % Eos % (Auto) 1.7 L (2-4) % Baso % (Auto) 0.7 (0-2) % Neut # (Auto) 5700 (9793-6046) /uL Lymph # (Auto) 1500 (2536-4845) /uL [place] # (Auto) 500 (0-900) /uL Eos # (Auto) 100 (0-450) /uL Baso # (Auto) 100 (0-100) /uL PT 25.7 H (10.1-12.7) SECONDS INR 2.3 H (0.9-1.3) APTT 34 (26.4-36.2) SECONDS ABG pH 7.31 L (7.35-7.45) ABG pCO2 41.1 (35-45) mmHg ABG pO2 162 H (80-100) mmHg ABG HCO3 21 L (22-26) mmol/L ABG Total CO2 22 (21-31) mmol/L ABG O2 Saturation 99 (95-100) % ABG Base Excess -6.0 L (-2-2) mmol/L FiO2 100 Sodium (137-145) mmol/L Potassium (3.4-5.1) mmol/L Chloride (98-107) mmol/L Carbon Dioxide (22-32) mmol/L BUN (9-20) mg/dL Creatinine (0.66-1.25) mg/dL Estimated GFR (>60) mL/min BUN/Creatinine Ratio (6-22) Glucose (80-110) mg/dL Calcium (8.4-10.2) mg/dL Magnesium (1.6-2.3) mg/dL Total Bilirubin (0.2-1.3) mg/dL AST (17-59) IU/L ALT (<50) IU/L Alkaline Phosphatase (38-126) U/L Total Creatine Kinase (55-170) U/L CK-MB (CK-2) CK-MB (CK-2) Rel Index Troponin I (0.01-0.034) ng/mL Total Protein (6.3-8.2) g/dL Albumin (3.5-5.0) g/dL Globulin (1.7-4.1) g/dL Albumin/Globulin Ratio (1.0-2.8) Lipase (23-300) U/L SARS-CoV-2 (PCR) (Negative) 06/03/21 06/03/21 06/03/21 Range/Units 17:51 18:05 19:03 WBC (4.5-11.0) X10^3/uL RBC (4.5-5.9) X10^6/uL Hgb (13.5-17.5) g/dL Hct (41-53) % MCV (80-100) fL MCH (26-34) PG MCHC (30-36) % RDW (11.6-14.8) % Plt Count (150-400) X10^3/uL Neut % (Auto) (50-75) % Lymph % (Auto) (25-40) % [place] % (Auto) (3-14) % Eos % (Auto) (2-4) % Baso % (Auto) (0-2) % Neut # (Auto) (0028-8802) /uL Lymph # (Auto) (3873-6652) /uL [place] # (Auto) (0-900) /uL Eos # (Auto) (0-450) /uL Baso # (Auto) (0-100) /uL PT (10.1-12.7) SECONDS INR (0.9-1.3) APTT (26.4-36.2) SECONDS ABG pH 7.21 L* (7.35-7.45) ABG pCO2 54.7 H (35-45) mmHg ABG pO2 77 L (80-100) mmHg ABG HCO3 22 (22-26) mmol/L ABG Total CO2 24 (21-31) mmol/L ABG O2 Saturation 92 L (95-100) % ABG Base Excess -6.0 L (-2-2) mmol/L FiO2 100 Sodium 135 L (137-145) mmol/L Potassium 3.6 (3.4-5.1) mmol/L Chloride 108 H (98-107) mmol/L Carbon Dioxide 22 (22-32) mmol/L BUN 29 H (9-20) mg/dL Creatinine 1.10 (0.66-1.25) mg/dL Estimated GFR > 60.0 (>60) mL/min BUN/Creatinine Ratio 26.4 H (6-22) Glucose 200 H (80-110) mg/dL Calcium 7.6 L (8.4-10.2) mg/dL Magnesium 2.2 (1.6-2.3) mg/dL Total Bilirubin 1.1 (0.2-1.3) mg/dL AST 68 H (17-59) IU/L ALT 39 (<50) IU/L Alkaline Phosphatase 63 (38-126) U/L Total Creatine Kinase 93 (55-170) U/L CK-MB (CK-2) TNP CK-MB (CK-2) Rel Index TNP Troponin I 0.017 (0.01-0.034) ng/mL Total Protein 6.2 L (6.3-8.2) g/dL Albumin 3.3 L (3.5-5.0) g/dL Globulin 2.9 (1.7-4.1) g/dL Albumin/Globulin Ratio 1.1 (1.0-2.8) Lipase 33 (23-300) U/L SARS-CoV-2 (PCR) Negative (Negative) Imaging Data CXR #1.:: Radiologist's Impression: Appropriate position the ETT 2. Left pneumothorax. CXR #2.:: Radiologist's Impression: Left chest tube placement with appropriate expansion of the left pneumothorax. Right midlung opacity. CXR # 3.:: Radiologist's Impression: Appropriate position the left subclavian line. ETT tube unchanged. Left chest tube unchanged. Right midlung opacity suggesting active bleeding versus aspiration. Critical Care Time Critical Care Time Critical Care Time: Yes Total Critical Care Time: 75 Attestation: Critical care time included initial assessment, ongoing critical management decisions, no findings of the clinical findings, and multiple consultations as detailed above. Discharge Plan Departure Patient Disposition: [facility] Clinical Impression: Respiratory arrest, COPD (chronic obstructive pulmonary disease), Pneumothorax, spontaneous, tension, Pulmonary embolism, PEA (Pulseless electrical activity), Hemorrhagic lung, Chronic anticoagulation Prescriptions: No Action omeprazole 20 mg capsule,delayed release(DR/EC) 20 mg PO BID Qty: 180 3RF colchicine 0.6 mg tablet 1.2 mg PO DAILY PRN (Reason: gout) Qty: 30 0RF Rx Instructions: 1.2 mg at the first sign of flare, followed in 1 hour with a single 0.6 mg dose as needed Eliquis 5 mg tablet 5 mg PO BID Qty: 180 3RF Rx Instructions: Generic Spiriva Respimat 2.5 mcg/actuation mist 2 puff inhalation DAILY Qty: 4 4RF allopurinol 100 mg tablet See Rx Instructions .ROUTE .COMPLEX Qty: 90 3RF Dose Instruction: TAKE 1 TABLET BY MOUTH DAILY Rx Instructions: TAKE 1 TABLET BY MOUTH DAILY albuterol sulfate [ProAir HFA] 90 mcg/actuation Hfa Aerosol Inhaler 2 puff INHALATION Q4H PRN (Reason: Wheezing) 0RF torsemide 10 mg tablet 10 mg PO DAILY 0RF Referrals: Horras,Chiki M, MD [Primary Care Provider] -
--- NOTE | 2021-06-03 20:27 | PC.NURSE ---
All IV drips (fentanyl, nor-epi, propofol, NS iv fluids) all sent with [facility] flight crew.
== END 2021-06-03 19:31 | disposition short-term general hospital (02) ==
PROVIDERS: Emergency Provider Emergency Medicine; PCP Family Medicine
DX: I46.9 Cardiac arrest, cause unspecified (principal); J44.9 Chronic obstructive pulmonary disease, unspecified; J93.0 Spontaneous tension pneumothorax; I26.99 Other pulmonary embolism without acute cor pulmonale; Z79.01 Long term (current) use of anticoagulants; Z87.891 Personal history of nicotine dependence; Z20.822 Contact with and (suspected) exposure to COVID-19
CPT/HCPCS: 32551; 36600; 71045; 80053; 82550; 82805; 83690; 83735; 84484; 85025; 85610; 85730; 87635; 92950; 94640; 94799; 99284; 99291; 99292; C9803; J0330; J2704; J7168